=== PATIENT | male | born 1955 | race Caucasian/White ===

== ENCOUNTER 2018-02-21 15:09 | Emergency (ER) | payer OTHER, SELFPAY ==
[2018-02-21 15:24] VITALS: BP 168/83; PULSE 79; RESP 20; TEMP 36.4; O2SAT 96; BMI 35.7
--- NOTE | 2018-02-21 17:28 | ED.BACK ---
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 He has seen his PCP and is on ibuprofen during the day and tramadol at night. He states that he has been doing okay with this regimen until earlier today when he bent over a bin and had sudden sharp pain in the same area. He states pain gets much worse if he is sitting, or if he walks for while. Much better lying prone nor on his back with his knees up. He denies any radiation of the pain. He denies any weakness or paresthesia in the extremities. He denies any new bowel or bladder dysfunction. He states he will occasionally have pain in the left side of his groin since this started, but does not have any now. He does not have numbness in the groin or perineum. He denies any fever, rash, recent illness or other complaints on systems review Related Data Home Medications Medication Instructions Recorded Confirmed aspirin 81 mg PO QDAY #0 10/07/16 Previous Rx's Medication Instructions Recorded fluticasone [Flonase Allergy 1 - 2 spray INTRANASAL QDAY #1 bot 10/07/16 Relief] prednisone 50 mg PO AMCC 3 Days #0 tab 10/07/16 oxycodone-acetaminophen [Percocet] 1 tab PO Q4-6H PRN #10 tab 02/21/18 Allergies Allergy/AdvReac Type Severity Reaction Status Date / Time chloramphenicol Allergy Unknown RASH Unverified 10/04/17 13:06 [CHLORAMPHENICOL] ITCHING shellfish derived Allergy Unknown THROAT Unverified 10/04/17 13:06 [SHELLFISH DERIVED] CLOSES UP Review of Systems <FORTINO Lora Last Filed: 02/21/18 21:47> Review of Systems All systems reviewed & are unremarkable except as noted in HPI and below PFSH <Fatou Guardado PA-C - Last Filed: 02/21/18 21:47> Comment: Occasional ETOH, no street drugs Exam <FORTINO Lora Last Filed: 02/21/18 21:47> Narrative Exam Narrative: GENERAL APPEARANCE: Patient appears comfortable, lying prone PULMONARY: Lungs clear to auscultation bilaterally CV: Regular rhythm regular without murmur, normal S1 and S2, no S3 or S4 MUSCULOSKELETAL: No point tenderness over the lumbar spine. No tenderness over the sacral spine. He points to the left SI joint as pain source but no tenderness there. He has reduced range of motion of the trunk in all chung secondary to tenderness. He is able to move from prone to supine on his own. Lower extremity strength 5/5 bilateral hip flexors, knee extensors, foot plantar flexion. Negative straight leg raise bilaterally. He ambulates with a slightly shortened gait NEUROLOGIC: Bilateral patellar and Achilles DTRs 2+, sensation is grossly intact Initial Vital Signs Initial Vital Signs: Vital Signs Temperature 97.5 F L 02/21/18 15:24 Pulse Rate 79 02/21/18 15:24 Respiratory Rate 20 02/21/18 15:24 Blood Pressure 168/83 H 02/21/18 15:24 Pulse Oximetry 96 02/21/18 15:24 <Duarte Pradhan DO - Last Filed: 02/21/18 23:12> Initial Vital Signs Initial Vital Signs: Vital Signs Temperature 97.5 F L 02/21/18 15:24 Pulse Rate 79 02/21/18 15:24 Respiratory Rate 20 02/21/18 15:24 Blood Pressure 168/83 H 02/21/18 15:24 Pulse Oximetry 96 02/21/18 15:24 Course <FORTINO Lora Last Filed: 02/21/18 21:47> Additional Information: Patient is comfortable lying prone, but overall does not feel like his pain is significantly improved with medications given here. He has taken Percocet in the past for pain without any side effects. He was given a prescription for this to take at home tonight and will remain off work and follow up with his PCP tomorrow. X-ray findings reviewed, and he agrees to return immediately if any acutely worsening symptoms or new symptoms such as extremity paresthesia, weakness, bowel or bladder dysfunction Orders Ordered: ED Orders 02/21/18 17:50 XR lumbar spine 2-3V Stat Discontinued Medications Cyclobenzaprine HCl (Flexeril) 10 mg PO NOW ONE Stop: 02/21/18 17:44 Last Admin: 02/21/18 18:28 Dose: 10 mg Tramadol HCl (Ultram) 100 mg PO NOW ONE Stop: 02/21/18 17:44 Last Admin: 02/21/18 18:28 Dose: 100 mg Vital Signs - 8 hr 02/21/18 15:24 02/21/18 19:45 Temperature 97.5 F L Pulse Rate 79 69 Respiratory Rate 20 20 Blood Pressure 168/83 H 172/70 H Pulse Oximetry 96 98 <Duarte Pradhan DO - Last Filed: 02/21/18 23:12> Orders Ordered: ED Orders 02/21/18 17:50 XR lumbar spine 2-3V Stat Discontinued Medications Cyclobenzaprine HCl (Flexeril) 10 mg PO NOW ONE Stop: 02/21/18 17:44 Last Admin: 02/21/18 18:28 Dose: 10 mg Tramadol HCl (Ultram) 100 mg PO NOW ONE Stop: 02/21/18 17:44 Last Admin: 02/21/18 18:28 Dose: 100 mg Vital Signs - 8 hr 02/21/18 15:24 02/21/18 19:45 Temperature 97.5 F L Pulse Rate 79 69 Respiratory Rate 20 20 Blood Pressure 168/83 H 172/70 H Pulse Oximetry 96 98 MDM - Back Pain/Injury <Fatou Guradado PA-C - Last Filed: 02/21/18 21:47> Imaging Data spine: Radiologist's impression: View Report History [address] [address] XRay Report Signed Patient: Wilfredo Magallanes MR#: [id number] : 1955 Acct:[id number] Age/Sex: 62 / M Date of Service: 02/21/18 Loc: ED Accession Number: [id number] Procedure: XR lumbar spine 2-3V Ordering Provider: Fatou Guardado P.A-C PROCEDURE: XR LUMBAR SPINE 2-3V INDICATIONS: pain, L. LB, SI TECHNIQUE: 3 views of the lumbar spine were acquired. COMPARISON: [facility], MR, L-SPINE WITHOUT CONTRAST, 02/09/2017, 8:36. FINDINGS: Bones: 5 yon-rca-tqthqag vertebrae are present. There is minimal retrolisthesis at L5-S1 redemonstrated. There is zcae-qk-rxqchiar disc space narrowing posteriorly at L5-S1 with mild narrowing posteriorly also noted at L3-L4 and L4-5. There is mild facet arthropathy at L5-S1. No vertebral body compression fractures. No suspicious bony lesions. Soft tissues: Overlying bowel gas pattern is normal. No suspicious soft tissue calcifications. IMPRESSION: 1. 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 2. Minimal retrolisthesis at L5-S1. Discharge Plan Departure Patient Disposition: Home Clinical Impression: Sacro-iliac pain, Low back strain Discharge Date/Time: 02/21/18 19:45 Interventions: ED Discharge Assessment Last Done: 02/21/18 19:45 Instructions: DI for Low Back Pain, DI Sacroiliac Joint Dysfunction Activity Restrictions/Additional Instructions: Please remain off work tomorrow and follow up with your primary care provider as planned to determine whether you need further testing or referral. I have given you a prescription for Percocet since you have taken that in the past and it has been helpful. Please use this tonight and tomorrow if needed instead of your tramadol. Do not take it and drive a as it may make you sleepy. Also please try [id number] 4% lidocaine patches to see if these are helpful for you. You should return if we have any acutely worsening symptoms as we talked about, or new symptoms such as leg weakness, groin numbness, bowel or bladder troubles. You should also talk with your PCP about the groin pain that you have had off and on even though you aren't having this today Prescriptions: New oxycodone-acetaminophen [Percocet] 5-325 mg tablet 1 tab PO Q4-6H PRN (Reason: pain) Qty: 10 RF: 0 No Action aspirin 81 MG tablet,delayed release (DR/EC) 81 mg PO QDAY Qty: 0 RF: 0 fluticasone [Flonase Allergy Relief] 9.9 ML spray,suspension 1 - 2 spray Intranasal QDAY Qty: 1 RF: 0 prednisone 50 MG tablet 50 mg PO AMCC 3 Days Qty: 0 RF: 0 Referrals: Maddie Kaufman MD [Non-Staff] - <Duarte [place], DO - Last Filed: 02/21/18 23:12> Cosign ED Attending Harjinderature Attestation: I was immediately available in the department for consultation. Documentation has been reviewed. I agree with assessment and plan.
--- NOTE | 2018-02-21 17:50 | ED_ITS ---
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 He has seen his PCP and is on ibuprofen during the day and tramadol at night. He states that he has been doing okay with this regimen until earlier today when he bent over a bin and had sudden sharp pain in the same area. He states pain gets much worse if he is sitting, or if he walks for while. Much better lying prone nor on his back with his knees up. He denies any radiation of the pain. He denies any weakness or paresthesia in the extremities. He denies any new bowel or bladder dysfunction. He states he will occasionally have pain in the left side of his groin since this started, but does not have any now. He does not have numbness in the groin or perineum. He denies any fever, rash, recent illness or other complaints on systems review Related Data Home Medications Medication Instructions Recorded Confirmed aspirin 81 mg PO QDAY #0 10/07/16 Previous Rx's Medication Instructions Recorded fluticasone [Flonase Allergy 1 - 2 spray INTRANASAL QDAY #1 bot 10/07/16 Relief] prednisone 50 mg PO AMCC 3 Days #0 tab 10/07/16 oxycodone-acetaminophen [Percocet] 1 tab PO Q4-6H PRN #10 tab 02/21/18 Allergies Allergy/AdvReac Type Severity Reaction Status Date / Time chloramphenicol Allergy Unknown RASH Unverified 10/04/17 13:06 [CHLORAMPHENICOL] ITCHING shellfish derived Allergy Unknown THROAT Unverified 10/04/17 13:06 [SHELLFISH DERIVED] CLOSES UP Review of Systems <FORTINO Lora Last Filed: 02/21/18 21:47> Review of Systems All systems reviewed & are unremarkable except as noted in HPI and below PFSH <Fatou Guardado PA-C - Last Filed: 02/21/18 21:47> Comment: Occasional ETOH, no street drugs Exam <FORTINO Lora Last Filed: 02/21/18 21:47> Narrative Exam Narrative: GENERAL APPEARANCE: Patient appears comfortable, lying prone PULMONARY: Lungs clear to auscultation bilaterally CV: Regular rhythm regular without murmur, normal S1 and S2, no S3 or S4 MUSCULOSKELETAL: No point tenderness over the lumbar spine. No tenderness over the sacral spine. He points to the left SI joint as pain source but no tenderness there. He has reduced range of motion of the trunk in all chung secondary to tenderness. He is able to move from prone to supine on his own. Lower extremity strength 5/5 bilateral hip flexors, knee extensors, foot plantar flexion. Negative straight leg raise bilaterally. He ambulates with a slightly shortened gait NEUROLOGIC: Bilateral patellar and Achilles DTRs 2+, sensation is grossly intact Initial Vital Signs Initial Vital Signs: Vital Signs Temperature 97.5 F L 02/21/18 15:24 Pulse Rate 79 02/21/18 15:24 Respiratory Rate 20 02/21/18 15:24 Blood Pressure 168/83 H 02/21/18 15:24 Pulse Oximetry 96 02/21/18 15:24 <Duarte Pradhan DO - Last Filed: 02/21/18 23:12> Initial Vital Signs Initial Vital Signs: Vital Signs Temperature 97.5 F L 02/21/18 15:24 Pulse Rate 79 02/21/18 15:24 Respiratory Rate 20 02/21/18 15:24 Blood Pressure 168/83 H 02/21/18 15:24 Pulse Oximetry 96 02/21/18 15:24 Course <FORTINO Lora Last Filed: 02/21/18 21:47> Additional Information: Patient is comfortable lying prone, but overall does not feel like his pain is significantly improved with medications given here. He has taken Percocet in the past for pain without any side effects. He was given a prescription for this to take at home tonight and will remain off work and follow up with his PCP tomorrow. X-ray findings reviewed, and he agrees to return immediately if any acutely worsening symptoms or new symptoms such as extremity paresthesia, weakness, bowel or bladder dysfunction Orders Ordered: ED Orders 02/21/18 17:50 XR lumbar spine 2-3V Stat Discontinued Medications Cyclobenzaprine HCl (Flexeril) 10 mg PO NOW ONE Stop: 02/21/18 17:44 Last Admin: 02/21/18 18:28 Dose: 10 mg Tramadol HCl (Ultram) 100 mg PO NOW ONE Stop: 02/21/18 17:44 Last Admin: 02/21/18 18:28 Dose: 100 mg Vital Signs - 8 hr 02/21/18 15:24 02/21/18 19:45 Temperature 97.5 F L Pulse Rate 79 69 Respiratory Rate 20 20 Blood Pressure 168/83 H 172/70 H Pulse Oximetry 96 98 <Duarte Pradhan DO - Last Filed: 02/21/18 23:12> Orders Ordered: ED Orders 02/21/18 17:50 XR lumbar spine 2-3V Stat Discontinued Medications Cyclobenzaprine HCl (Flexeril) 10 mg PO NOW ONE Stop: 02/21/18 17:44 Last Admin: 02/21/18 18:28 Dose: 10 mg Tramadol HCl (Ultram) 100 mg PO NOW ONE Stop: 02/21/18 17:44 Last Admin: 02/21/18 18:28 Dose: 100 mg Vital Signs - 8 hr 02/21/18 15:24 02/21/18 19:45 Temperature 97.5 F L Pulse Rate 79 69 Respiratory Rate 20 20 Blood Pressure 168/83 H 172/70 H Pulse Oximetry 96 98 MDM - Back Pain/Injury <Fatou Guardado PA-C - Last Filed: 02/21/18 21:47> Imaging Data spine: Radiologist's impression: View Report History [address] [address] XRay Report Signed Patient: Wilfredo Magallanes MR#: [id number] : 1955 Acct:[id number] Age/Sex: 62 / M Date of Service: 02/21/18 Loc: ED Accession Number: [id number] Procedure: XR lumbar spine 2-3V Ordering Provider: Fatou Guardado P.A-C PROCEDURE: XR LUMBAR SPINE 2-3V INDICATIONS: pain, L. LB, SI TECHNIQUE: 3 views of the lumbar spine were acquired. COMPARISON: [facility], MR, L-SPINE WITHOUT CONTRAST, 02/09/2017, 8:36. FINDINGS: Bones: 5 wcr-odd-kcosluq vertebrae are present. There is minimal retrolisthesis at L5-S1 redemonstrated. There is erzs-ya-ndbizoro disc space narrowing posteriorly at L5-S1 with mild narrowing posteriorly also noted at L3-L4 and L4-5. There is mild facet arthropathy at L5-S1. No vertebral body compression fractures. No suspicious bony lesions. Soft tissues: Overlying bowel gas pattern is normal. No suspicious soft tissue calcifications. IMPRESSION: 1. 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 2. Minimal retrolisthesis at L5-S1. Discharge Plan Departure Patient Disposition: Home Clinical Impression: Sacro-iliac pain, Low back strain Discharge Date/Time: 02/21/18 19:45 Interventions: ED Discharge Assessment Last Done: 02/21/18 19:45 Instructions: DI for Low Back Pain, DI Sacroiliac Joint Dysfunction Activity Restrictions/Additional Instructions: Please remain off work tomorrow and follow up with your primary care provider as planned to determine whether you need further testing or referral. I have given you a prescription for Percocet since you have taken that in the past and it has been helpful. Please use this tonight and tomorrow if needed instead of your tramadol. Do not take it and drive a as it may make you sleepy. Also please try [id number] 4% lidocaine patches to see if these are helpful for you. You should return if we have any acutely worsening symptoms as we talked about, or new symptoms such as leg weakness, groin numbness, bowel or bladder troubles. You should also talk with your PCP about the groin pain that you have had off and on even though you aren't having this today Prescriptions: New oxycodone-acetaminophen [Percocet] 5-325 mg tablet 1 tab PO Q4-6H PRN (Reason: pain) Qty: 10 RF: 0 No Action aspirin 81 MG tablet,delayed release (DR/EC) 81 mg PO QDAY Qty: 0 RF: 0 fluticasone [Flonase Allergy Relief] 9.9 ML spray,suspension 1 - 2 spray Intranasal QDAY Qty: 1 RF: 0 prednisone 50 MG tablet 50 mg PO AMCC 3 Days Qty: 0 RF: 0 Referrals: Maddie Kaufman MD [Non-Staff] - <Duarte [place], DO - Last Filed: 02/21/18 23:12> Cosign ED Attending Harjinderature Attestation: I was immediately available in the department for consultation. Documentation has been reviewed. I agree with assessment and plan.
--- NOTE | 2018-02-21 17:50 | DI.RAD.S_ITS ---
PROCEDURE: XR LUMBAR SPINE 2-3V INDICATIONS: pain, L. LB, SI TECHNIQUE: 3 views of the lumbar spine were acquired. COMPARISON: [facility], , L-SPINE WITHOUT CONTRAST, 02/09/2017, 8:36. FINDINGS: Bones: 5 xqt-elg-yyqtwps vertebrae are present. There is minimal retrolisthesis at L5-S1 redemonstrated. There is hgje-rv-nypwgzog disc space narrowing posteriorly at L5-S1 with mild narrowing posteriorly also noted at L3-L4 and L4-5. There is mild facet arthropathy at L5-S1. No vertebral body compression fractures. No suspicious bony lesions. Soft tissues: Overlying bowel gas pattern is normal. No suspicious soft tissue calcifications. IMPRESSION: 1. 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 2. Minimal retrolisthesis at L5-S1. Dictated by: Maikol Calvo M.D. on 02/21/2018 at 18:53 Approved by: Maikol Calvo M.D. on 02/21/2018 at 18:55
[2018-02-21] MEDS: CYCLOBENZAPRINE 10 MG TABLET PO (18:28)
[2018-02-21] MEDS: TRAMADOL 50 MG TABLET 100 MG PO (18:28)
[2018-02-21 19:45] VITALS: BP 172/70; PULSE 69; RESP 20; O2SAT 98
== END 2018-02-21 19:45 | disposition home or self-care (01) ==
PROVIDERS: Emergency Provider Internal Medicine
DX: S39.012A Strain of muscle, fascia and tendon of lower back, initial encounter (principal); M53.3 Sacrococcygeal disorders, not elsewhere classified; X50.9XXA Other and unspecified overexertion or strenuous movements or postures, initial encounter
CPT/HCPCS: 72100; 99282; 99283

== ENCOUNTER 2020-03-09 23:27 | Emergency (ER) | payer OTHER, SELFPAY ==
[2020-03-09 23:35] VITALS: BP 157/74; PULSE 63; RESP 18; TEMP 37; O2SAT 96
--- NOTE | 2020-03-09 23:39 | ED.BACK ---
HPI - Back Pain/Injury General Chief Complaint: Back Pain/Injury Stated Complaint: severe lower back pain Time Seen by Provider: 03/09/20 23:30 Source: patient Mode of arrival: Ambulatory Limitations: no limitations History of Present Illness HPI Narrative: 64-year-old male here for evaluation of lower midline back pain. He states that yesterday he was bending over to put some air in his tire on the vehicle when he suddenly got lower back pain. No urinary symptoms. No bowel symptoms. Took some nwos-wph-idhqsaw anti-inflammatories minimal of any improving. He states he had similar symptoms many years ago. No radiation down into his legs. No fevers. He did not fall. Related Data Home Medications Medication Instructions Recorded Confirmed aspirin 81 mg PO QDAY #0 10/07/16 Previous Rx's Medication Instructions Recorded fluticasone propionate [Flonase 1 - 2 spray INTRANASAL QDAY #1 bot 10/07/16 Allergy Relief] prednisone 50 mg PO AMCC 3 Days #0 tab 10/07/16 oxycodone-acetaminophen [Percocet] 1 tab PO Q4-6H PRN #10 tab 02/21/18 Allergies Allergy/AdvReac Type Severity Reaction Status Date / Time chloramphenicol Allergy Unknown RASH Unverified 10/04/17 13:06 [CHLORAMPHENICOL] ITCHING shellfish derived Allergy Unknown THROAT Unverified 10/04/17 13:06 [SHELLFISH DERIVED] CLOSES UP Review of Systems Constitutional Constitutional: Denies fever(s) Cardiovascular Cardiovascular: Denies chest pain and Denies dyspnea Respiratory Respiratory: Denies dyspnea Gastrointestinal Gastrointestinal: Denies abdominal pain, Denies nausea and Denies vomiting Genitourinary Genitourinary: Denies dysuria, Denies urinary hesitancy, Denies urinary incontinence and Denies urinary urgency Genitourinary: Denies dysuria, Denies urinary incontinence, Denies urinary hesitancy and Denies urinary urgency Musculoskeletal Musculoskeletal: Denies arthralgias, Reports back pain, Denies myalgias, Denies numbness and Denies radiating pain into limb Integumentary/Breasts Skin/Breast: Denies lesions and Denies rash Neurologic Neurologic: Denies behavioral changes and Denies numbness Psychiatric Psychiatric: Denies behavioral changes Hematologic/Lymphatic Hematologic/Lymphatic: Denies easy bleeding and Denies easy bruising Allergic/Immunologic Allergic/Immunologic: Denies urticaria Patient History Medical History HTN (hypertension) (Chronic) Surgical History (Updated 02/21/18 @ 17:49 by Fatou Guardado PA-C) History of elbow surgery (Resolved) Status post appendectomy (Resolved) Social History Smoking Status: Current every day smoker Smoking Status: Current every day smoker alcohol intake frequency: 0-2 drinks per day Substance Use Type: does not use Exam Initial Vital Signs Initial Vital Signs: Vital Signs Temperature 98.6 F 03/09/20 23:35 Pulse Rate 63 03/09/20 23:35 Respiratory Rate 18 03/09/20 23:35 Blood Pressure 157/74 H 03/09/20 23:35 Pulse Oximetry 96 03/09/20 23:35 Const General: cooperative and comfortable Limitations: mental status not altered HENMT Head: normal to inspection and normocephalic Resp Effort & Inspection: normal respiratory effort Cardio Rate: regular rate Back/Spine/Pelvis Thoracic/Lumbar Spine: paraspinal tenderness, No thoracic spinal tenderness and lumbar spinal tenderness Skin Lesions: no lesions Rashes: no rashes Neuro General: patient alert and patient awake Sensory Exam: no sensory deficits noted Extrem General: normal to inspection and capillary refill normal Psych Appearance: grossly normal and well kempt Course Orders Ordered: Discontinued Medications Hydrocodone Bitart/Acetaminophen ([place] 5/325) 1 tab PO NOW ONE Stop: 03/09/20 23:41 Last Admin: 03/09/20 23:48 Dose: 1 tab Documented by: FANY Hydrocodone Bitart/Acetaminophen (Vicodin 5/325 Prepack) 1 bottle MISC SEEINSTR ONE Stop: 03/09/20 23:41 Last Admin: 03/09/20 23:49 Dose: 1 bottle Documented by: FANY Cyclobenzaprine HCl (Flexeril 10 Mg Prepack) 1 bottle MISC SEEINSTR ONE Stop: 03/09/20 23:41 Last Admin: 03/09/20 23:49 Dose: 1 bottle Documented by: FANY Ketorolac Tromethamine (Toradol) 30 mg IM NOW ONE Stop: 03/09/20 23:41 Last Admin: 03/09/20 23:49 Dose: 30 mg Documented by: FANY Vital Signs Vital signs: Vital Signs - 8 hr 03/09/20 23:35 Temperature 98.6 F Pulse Rate 63 Respiratory Rate 18 Blood Pressure 157/74 H Pulse Oximetry 96 MDM - Back Pain/Injury MDM Narrative Medical decision making narrative: No fevers. No urinary symptoms. No radiculopathy. No trauma. Suspect muscular etiology. Feel we can hold on radiologic studies for now. Start the process of symptom treatment here in the emergency department. Will send home with short prescriptions for medications. We did discuss the use of heat and ice and massage chin staying active. He is going to contact his primary provider for follow-up. We did discuss strict return precautions. He expressed understanding and agreement. Discharge Plan Departure Patient Disposition: Home Clinical Impression: Lower back pain Qualifiers: Chronicity: acute Back pain laterality: midline Sciatica presence: without sciatica Qualified Code(s): M54.5 - Low back pain Discharge Date/Time: 03/09/20 23:59 Instructions: DI for Low Back Pain Activity Restrictions/Additional Instructions: Recommend that you start taking an anti-inflammatories such as Motrin or Naprosyn or Aleve on a daily basis for the next 7-10 days as directed on the bottle. You can purchase hqfs-ghs-qjsyocv. Recommend that you do take it with some food has a can cause some stomach upset. You can do light stretching and heat/ice/massage. Contact your primary provider for follow-up. Return to the emergency department for any new or worsening symptoms Prescriptions: No Action aspirin 81 MG tablet,delayed release (DR/EC) 81 mg PO QDAY Qty: 0 RF: 0 fluticasone propionate [Flonase Allergy Relief] 9.9 ML spray,suspension 1 - 2 spray Intranasal QDAY Qty: 1 RF: 0 prednisone 50 MG tablet 50 mg PO AMCC 3 Days Qty: 0 RF: 0 oxycodone-acetaminophen [Percocet] 5-325 mg tablet 1 tab PO Q4-6H PRN (Reason: pain) Qty: 10 RF: 0 Stand Alone Forms: Work Release Note
[2020-03-09] MEDS: HYDROCODONE/ACET 5/325 TABLET 1 TAB PO (23:48)
[2020-03-09] MEDS: HYDROCODONE/ACET 5/325 PREPACK 1 BOTTLE MISC (23:49)
[2020-03-09] MEDS: KETOROLAC 60 MG/2 ML VIAL 30 MG IM (23:49)
[2020-03-09] MEDS: CYCLOBENZAPRINE 10 MG PREPACK 1 BOTTLE MISC (23:49)
== END 2020-03-09 23:59 | disposition home or self-care (01) ==
PROVIDERS: Emergency Provider Emergency Medicine
DX: M54.5 Low back pain (principal)
CPT/HCPCS: 96372; 99283; J1885

== ENCOUNTER 2020-06-07 18:52 | Emergency (ER) | payer MEDICARE, OTHER, SELFPAY ==
[2020-06-07 18:58] VITALS: BP 173/72; PULSE 82; RESP 22; TEMP 36.6; O2SAT 96
--- NOTE | 2020-06-07 19:31 | ED_ITS ---
HPI - Extremity Problem General Chief complaint: Extremity Problem,Nontraumatic Stated complaint: states severe gout right ankle Time Seen by Provider: 06/07/20 18:57 Source: patient Mode of arrival: Wheelchair Limitations: no limitations History of Present Illness HPI Narrative: Patient is 64-year-old male with history of hypertension and gout presenting with right medial malleoli pain which started yesterday morning at 3:00 a.m.. He said he was feeling fine the day before he had beef stew and then he started feeling an ache. 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 He is unable to bear weight he has been ambulating with a cane. He denies any fever or chills there was no injury. He previously had 1 gouty attack 5 years ago and nothing since. He denies any fever or chills. MD Complaint: extremity pain and extremity swelling Onset (ago): day(s) (1) Quality: aching Associated symptoms: denies other symptoms Related Data Home Medications Medication Instructions Recorded Confirmed aspirin 81 mg PO QDAY #0 10/07/16 Previous Rx's Medication Instructions Recorded fluticasone propionate [Flonase 1 - 2 spray INTRANASAL QDAY #1 bot 10/07/16 Allergy Relief] prednisone 50 mg PO AMCC 3 Days #0 tab 10/07/16 oxycodone-acetaminophen [Percocet] 1 tab PO Q4-6H PRN #10 tab 02/21/18 prednisone 40 mg PO DAILY #10 tab 06/07/20 Allergies Allergy/AdvReac Type Severity Reaction Status Date / Time chloramphenicol Allergy Unknown RASH Unverified 10/04/17 13:06 [CHLORAMPHENICOL] ITCHING shellfish derived Allergy Unknown THROAT Unverified 10/04/17 13:06 [SHELLFISH DERIVED] CLOSES UP Review of Systems Review of Systems Narrative: GENERAL: Denies chills,fever HEENT: Denies throat pain RESPIRATORY: Denies dyspnea, cough, wheezing CARDIOVASCULAR: Denies chest pain, palpitations GASTROINTESTINAL: Denies nausea, vomiting MUSCULOSKELETAL: See HPI SKIN: No rash, no laceration, no pruritus NEUROLOGIC: Denies weakness, dizziness, headache, numbness 8 point review of systems is negative except for those stated above and HPI Patient History Medical History (Updated 06/07/20 @ 19:36 by Ashleigh Perez DO) Gout HTN (hypertension) Surgical History History of elbow surgery Status post appendectomy Social History Smoking Status: Current every day smoker Smoking Status: Current every day smoker alcohol intake frequency: 0-2 drinks per day Substance Use Type: does not use Exam Initial Vital Signs Initial Vital Signs: Vital Signs Temperature 97.9 F 06/07/20 18:58 Pulse Rate 82 06/07/20 18:58 Respiratory Rate 22 06/07/20 18:58 Blood Pressure 173/72 H 06/07/20 18:58 Pulse Oximetry 96 06/07/20 18:58 GENERAL: Well-appearing, well-nourished and in no acute distress. CARDIOVASCULAR: peripheral pulses in tact, cap refill <2 sec RESPIRATORY: No respiratory distress, speaks in full sentences without difficulty EXTREMITIES: Normal range of motion, no clubbing or edema. Neurovascularly int act,. Passive range of motion of right ankle is intact neurovascularly intact. NEUROLOGICAL: Cranial nerves II through XII grossly intact. Normal gait and speech. SKIN: No minimal erythema noted right medial malleoli mild swelling Course Orders Ordered: Discontinued Medications Ketorolac Tromethamine (Ketorolac 60 Mg/2 Ml Vial) 30 mg IM NOW ONE Stop: 06/07/20 19:32 Last Admin: 06/07/20 19:40 Dose: 30 mg Documented by: MMINOR Vital Signs Vital signs: Vital Signs - 8 hr 06/07/20 18:58 Temperature 97.9 F Pulse Rate 82 Respiratory Rate 22 Blood Pressure 173/72 H Pulse Oximetry 96 MDM - Extremity (Nontraumatic) [facility] Narrative Medical decision making narrative: Patient has had 1 episode of gout previously he says this feels the same. He has minimal erythema minimal swelling no injury. At this time I see no indication for imaging. He is given a shot of T oradol and prescribed a course of prednisone. It is unclear what his kidney function is like with his known hypertension. At this time will treat with short course of prednisone. He has been taking ibuprofen 400 mg Discharge Plan Departure Patient Disposition: Home Clinical Impression: Gout Qualifiers: Gout site: ankle Gout etiology: unspecified cause Chronicity: acute Laterality: right Qualified Code(s): M10.9 - Gout, unspecified Instructions: DI for Gout Activity Restrictions/Additional Instructions: *You have been diagnosed with a gout flare right ankle *What to do: Increase activity as tolerated use cane as needed *Continue to take medications as directed Prednisone 40 mg once a day for 5 days *Follow up with your primary care provider in 2-3 days *Return to ER if you should have increasing pain swelling redness fever inability to walk or any new, worsening or concerning symptoms Prescriptions: New prednisone 20 mg tablet 40 mg PO DAILY Qty: 10 RF: 0 No Action aspirin 81 MG tablet,delayed release (DR/EC) 81 mg PO QDAY Qty: 0 RF: 0 fluticasone propionate [Flonase Allergy Relief] 9.9 ML spray,suspension 1 - 2 spray Intranasal QDAY Qty: 1 RF: 0 prednisone 50 MG tablet 50 mg PO AMCC 3 Days Qty: 0 RF: 0 oxycodone-acetaminophen [Percocet] 5-325 mg tablet 1 tab PO Q4-6H PRN (Reason: pain) Qty: 10 RF: 0 Stand Alone Forms: Work Release Note
[2020-06-07] MEDS: KETOROLAC 60 MG/2 ML VIAL 30 MG IM (19:40)
== END 2020-06-07 19:57 | disposition home or self-care (01) ==
PROVIDERS: Emergency Provider Emergency Medicine
DX: M10.9 Gout, unspecified (principal); I10 Essential (primary) hypertension
CPT/HCPCS: 96372; 99281; 99283; J1885

== ENCOUNTER 2021-08-20 09:47 | Emergency (ER) | payer MEDICARE, OTHER, SELFPAY ==
[2021-08-20 10:22] VITALS: BP 136/63; PULSE 63; RESP 18; TEMP 36.3; O2SAT 96; BMI 35.6
--- NOTE | 2021-08-20 12:29 | DI.RAD.S_ITS ---
PROCEDURE: XR FOOT LT MIN 3V INDICATIONS: Great toe pain TECHNIQUE: 3 views of the foot were acquired. COMPARISON: None. FINDINGS: Bones: No fractures or dislocations. No suspicious bony lesions. Posterior and plantar calcaneal spurs noted. Soft tissues: No tibiotalar joint effusion. Achilles tendon appears normal. IMPRESSION: Calcaneal spurs. Otherwise unremarkable left foot radiographs Approved by: Perez Dwyer M.D. on 08/20/2021 at 12:28
--- NOTE | 2021-08-20 12:33 | ED.EXTPRO ---
HPI - Extremity Problem General Chief complaint: Extremity Problem,Nontraumatic Stated complaint: something wrong with left foot/poss gout Time Seen by Provider: 08/20/21 09:49 Source: patient Mode of arrival: Family Vehicle History of Present Illness HPI Narrative: Patient has history of gout. Seen here 2 days ago for right ankle gout. Improved with prednisone. Patient states pain started in the left great toe about 2 days ago. He does not drink very much alcohol but does eat red meat. Patient has not follow-up with anybody since his episode 2 years ago. No known injury. Related Data Home Medications Medication Instructions Recorded Confirmed aspirin 81 mg tablet,delayed 81 mg PO QDAY #0 10/07/16 release Previous Rx's Medication Instructions Recorded fluticasone propionate 50 1 - 2 spray INTRANASAL QDAY #1 bot 10/07/16 mcg/actuation nasal spray,suspension (Flonase Allergy Relief) prednisone 50 mg tablet 50 mg PO AMCC 3 Days #0 tab 10/07/16 oxycodone-acetaminophen 5 mg-325 1 tab PO Q4-6H PRN #10 tab 02/21/18 mg tablet (Percocet) prednisone 20 mg tablet 40 mg PO DAILY #10 tab 06/07/20 colchicine 0.6 mg capsule 0.6 mg PO DAILY #3 cap 08/20/21 methylprednisolone 4 mg tablets in See Rx Instructions PO .COMPLEX 08/20/21 a dose pack (Medrol (Tad)) #21 ea Allergies Allergy/AdvReac Type Severity Reaction Status Date / Time chloramphenicol Allergy Unknown RASH Verified 08/20/21 10:27 [CHLORAMPHENICOL] ITCHING shellfish derived Allergy Unknown THROAT Verified 08/20/21 10:27 [SHELLFISH DERIVED] CLOSES UP Review of Systems Review of Systems Narrative: GENERAL: Denies chills, fatigue, malaise, fever, sweats. HEENT: Denies sinus pain, ear pain, sore throat RESPIRATORY: Denies dyspnea, cough CARDIOVASCULAR: Denies chest pain, palpitations GASTROINTESTINAL: Denies nausea, vomiting, abdominal pain : Denies dysuria, frequency, hematuria MUSCULOSKELETAL: Positive for muscle or bony pain SKIN: Denies rash, skin lesions NEUROLOGIC: Denies weakness, numbness ROS Unobtainable: All systems reviewed & are unremarkable except as noted in HPI and below Patient History Medical History Gout HTN (hypertension) Surgical History History of elbow surgery Status post appendectomy Social History Smoking Status: Current every day smoker Smoking Status: Current every day smoker tobacco type: cigarettes alcohol intake frequency: holidays/special occasions only Substance Use Type: does not use Exam Narrative Exam Narrative: GENERAL: in no distress, not toxic not dyspneic HEAD: Normocephalic. EXTREMITIES: No gross deformities. Left foot and ankle exposed. Nontender ankle. There is tenderness overlying the 1st MTP joint. No erythema no red streaking. Light touch intact to toe and foot. No necrotic tissue. No lesions. No rash. Strong pedal pulse. Foot is warm soft and pink NEURO: AOx4. SKIN: Warm and dry PSYCH: Not anxious, is cooperative Initial Vital Signs Initial Vital Signs: Vital Signs Temperature 97.4 F L 08/20/21 10:22 Pulse Rate 63 08/20/21 10:22 Respiratory Rate 18 08/20/21 10:22 Blood Pressure 136/63 08/20/21 10:22 Pulse Oximetry 96 08/20/21 10:22 Course Course Course Narrative: No new issues during course of stay Orders Ordered: ED Orders 08/20/21 12:29 XR foot LT min 3V Stat Discontinued Medications Indomethacin (Indomethacin 25 Mg Capsule) 50 mg PO Q8HR QUOC Prednisone (Prednisone 20 Mg Tablet) 40 mg PO NOW ONE Stop: 08/20/21 12:33 Last Admin: 08/20/21 12:39 Dose: 40 mg Documented by: SETH Reevaluation(s) Reevaluation #1: Patient agrees with treatment plan and medication prescriptions. Outpatient follow-up referrals given. Not toxic at discharge. Time: 13:33 Vital Signs Vital signs: Vital Signs - 8 hr 08/20/21 10:22 Temperature 97.4 F L Pulse Rate 63 Respiratory Rate 18 Blood Pressure 136/63 Pulse Oximetry 96 MDM - Extremity (Nontraumatic) Differential Diagnosis Differential diagnosis: Likely gout and cellulitis Imaging Data Extremity x-ray #1: Radiologist's Impression: [address] [address] XRay Report Signed Patient: Wilfredo Magallanes MR#: [id number] : 1955 Acct:[id number] Age/Sex: 66 / M Date of Service: 08/20/21 Loc: ED Accession Number: [id number] ?? Procedure: XR foot LT min 3V Ordering Provider: Po Arreola MD PROCEDURE:? XR FOOT LT MIN 3V ? INDICATIONS:? Great toe pain ? TECHNIQUE:? 3 views of the foot were acquired.? ? COMPARISON:? None. ? FINDINGS:? ? Bones:? No fractures or dislocations.? No suspicious bony lesions.? Posterior and plantar calcaneal spurs noted. ? Soft tissues:? No tibiotalar joint effusion.? Achilles tendon appears normal.? ? ? IMPRESSION:? Calcaneal spurs.? Otherwise unremarkable left foot radiographs ? ? ? Approved by: Perez Dwyer M.D. on 08/20/2021 at 12:28? MDM Narrative Medical decision making narrative: Appropriate for discharge home. No blood work indicated. Clinically is gout. Return precautions reviewed with patient. Podiatry Services and General primary care referral given to patient. Discharge Plan Departure Patient Disposition: Home Clinical Impression: Gout Instructions: Gout Activity Restrictions/Additional Instructions: No red meat products in your diet or alcohol. Call provided Podiatry office on Monday for office recheck of your toe pain. Please call referral line to obtain family doctor as well. Prescriptions have been sent to your pharmacy to continue for your foot pain. Return if worse if any questions or concerns. Call provided primary care referral phone number to establish family doctor. Call [phone] continue steroid pack tomorrow. Prescriptions: New colchicine 0.6 mg capsule 0.6 mg PO DAILY Qty: 3 0RF methylprednisolone [Medrol (Tad)] 4 mg tablets,dose pack See Rx Instructions PO .COMPLEX Qty: 21 0RF Rx Instructions: orally per package directions No Action aspirin 81 MG tablet,delayed release (DR/EC) 81 mg PO QDAY Qty: 0 0RF fluticasone propionate [Flonase Allergy Relief] 9.9 ML spray,suspension 1 - 2 spray Intranasal QDAY Qty: 1 0RF prednisone 50 MG tablet 50 mg PO AMCC 3 Days Qty: 0 0RF oxycodone-acetaminophen [Percocet] 5-325 mg tablet 1 tab PO Q4-6H PRN (Reason: pain) Qty: 10 0RF Rx Instructions: Take 1-2 tabs every 4-6 hours prn back pain. Stop Tramadol. Do not drive prednisone 20 mg tablet 40 mg PO DAILY Qty: 10 0RF Referrals: Sumi Tracy DPM [Physician] -
[2021-08-20] MEDS: predniSONE 20 MG TABLET 40 MG PO (12:39)
== END 2021-08-20 13:36 | disposition home or self-care (01) ==
PROVIDERS: Emergency Provider Emergency Medicine
DX: M10.072 Idiopathic gout, left ankle and foot (principal)
CPT/HCPCS: 73630; 99283

== ENCOUNTER 2021-10-02 18:47 | Emergency (ER) | payer OTHER, SELFPAY ==
[2021-10-02 19:11] VITALS: BP 188/84; PULSE 63; RESP 20; TEMP 36.8; O2SAT 92; BMI 35.4
--- NOTE | 2021-10-02 19:32 | ED.BACK ---
HPI - Back Pain/Injury <Micah Zaragoza PA-C - Last Filed: 10/02/21 20:30> General Chief Complaint: Back Pain/Injury Stated Complaint: pain in lower back; heard a pop and pain shot down Time Seen by Provider: 10/02/21 19:15 Source: patient History of Present Illness HPI Narrative: Patient is a 66-year-old male presenting to the emergency department today for an evaluation low back pain. 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 He explains this has happened to him once before in the past, noting that he was ?out for about 30 days? due to the pain. He states that he is no longer experiencing pain radiating down his right lower extremity but does report pain in his mid low back. Of note, patient states he did not fall or experience any trauma to his back prior to the onset of his pain. No fever, chills, chest pain, cough, shortness of breath, nausea, vomiting, diarrhea, abdominal pain, dysuria, hematuria, constipation, numbness and tingling in the lower extremities, saddle anesthesia, urinary incontinence, fecal incontinence, or any other concerning symptoms reported. No further concerns were voiced at this time. Related Data Home Medications Medication Instructions Recorded Confirmed aspirin 81 mg tablet,delayed 81 mg PO QDAY #0 10/07/16 release Previous Rx's Medication Instructions Recorded fluticasone propionate 50 1 - 2 spray INTRANASAL QDAY #1 bot 10/07/16 mcg/actuation nasal spray,suspension (Flonase Allergy Relief) prednisone 50 mg tablet 50 mg PO AM[facility] 3 Days #0 tab 10/07/16 oxycodone-acetaminophen 5 mg-325 1 tab PO Q4-6H PRN #10 tab 02/21/18 mg tablet (Percocet) prednisone 20 mg tablet 40 mg PO DAILY #10 tab 06/07/20 colchicine 0.6 mg capsule 0.6 mg PO DAILY #3 cap 08/20/21 methylprednisolone 4 mg tablets in See Rx Instructions PO .COMPLEX 08/20/21 a dose pack (Medrol (Tad)) #21 ea baclofen 20 mg tablet 20 mg PO TID #20 tab 10/02/21 oxycodone 5 mg tablet 5 mg PO BID PRN #15 tab 10/02/21 Allergies Allergy/AdvReac Type Severity Reaction Status Date / Time chloramphenicol Allergy Unknown RASH Verified 10/02/21 19:11 [CHLORAMPHENICOL] ITCHING shellfish derived Allergy Unknown THROAT Verified 10/02/21 19:11 [SHELLFISH DERIVED] CLOSES UP Review of Systems <Micah Zaragoza PA-C - Last Filed: 10/02/21 20:30> Constitutional Constitutional: Denies chills, Denies fatigue, Denies fever(s), Denies frequent falls, Denies lethargy and Denies weakness Eyes Eyes: Denies loss of vision ENT Ears, Nose, Mouth, and Throat: Denies dizziness and Denies neck pain Cardiovascular Cardiovascular: Denies chest pain, Denies irregular heart rhythm, Denies lightheadedness, Denies palpitations, Denies dyspnea, Denies dyspnea on exertion and Denies orthopnea Respiratory Respiratory: Denies cough, Denies dyspnea, Denies dyspnea on exertion and Denies wheezing Gastrointestinal Gastrointestinal: Denies abdominal pain, Denies change in bowel habits, Denies diarrhea, Denies nausea and Denies vomiting Genitourinary Genitourinary: Denies hematuria, Denies flank pain, Denies urinary incontinence and Denies urinary urgency Musculoskeletal Musculoskeletal: Reports back pain, Denies muscle weakness, Denies neck pain, Denies numbness, Denies tingling and Reports other (Shooting pain down right leg) Integumentary/Breasts Skin/Breast: Denies pruritus, Denies erythema, Denies rash and Denies wounds Neurologic Neurologic: Denies behavioral changes, Denies confusion, Denies dizziness, Denies frequent falls, Denies loss of vision, Denies numbness, Denies tingling and Denies weakness Psychiatric Psychiatric: Denies behavioral changes and Denies confusion Endocrine Endocrine: Denies fatigue and Denies palpitations Allergic/Immunologic Allergic/Immunologic: Denies wheezing Patient History <Micah Zaragoza PA-C - Last Filed: 10/02/21 20:30> Medical History Gout HTN (hypertension) Surgical History History of elbow surgery Status post appendectomy Social History Smoking Status: Current every day smoker Smoking Status: Current every day smoker tobacco type: cigarettes alcohol intake frequency: holidays/special occasions only Substance Use Type: does not use Exam <Micah Zaragoza PA-C - Last Filed: 10/02/21 20:30> Narrative Exam Narrative: GENERAL: 66 year old patient appears stated age. Well-developed patient, in mild distress. HEAD: Atraumatic. Normocephalic. EYES: Pupils equal round and reactive. Extraocular motions intact. No scleral icterus. No injection or drainage. ENT: Nose without bleeding, purulent drainage. Throat without erythema, tonsillar hypertrophy or exudate. Airway patent. NECK: Trachea midline. Non tender CARDIOVASCULAR: Regular rate and rhythm without murmurs, gallops, or rubs. RESPIRATORY: Clear to auscultation. Breath sounds equal bilaterally. No wheezes, rales, or rhonchi. GASTROINTESTINAL: Abdomen soft, non-tender, nondistended. EXTREMITIES: No edema or joint tenderness. BACK: No deformity or crepitance. No flank tenderness. Tenderness to palpation appreciated over the area of the L4-L5 paraspinal muscles bilaterally. Tenderness over the sacrum bilaterally. No overlying erythema or ecchymosis appreciated. Pain with resisted plantar flexion of the right foot. NEURO: AOx3. Good sensation light touch appreciated throughout the bilateral lower extremities. Gross motor function intact of the bilateral lower extremities. SKIN: No rash or erythema of visible areas Initial Vital Signs Initial Vital Signs: Vital Signs Temperature 98.3 F 10/02/21 19:11 Pulse Rate 63 10/02/21 19:11 Respiratory Rate 20 10/02/21 19:11 Blood Pressure 188/84 H 10/02/21 19:11 Pulse Oximetry 92 10/02/21 19:11 <Doretha Powell DO - Last Filed: 10/03/21 03:09> Initial Vital Signs Initial Vital Signs: Vital Signs Temperature 98.3 F 10/02/21 19:11 Pulse Rate 63 10/02/21 19:11 Respiratory Rate 20 10/02/21 19:11 Blood Pressure 188/84 H 10/02/21 19:11 Pulse Oximetry 92 10/02/21 19:11 Course <Micah Zaragoza PA-C - Last Filed: 10/02/21 20:30> Course Course Narrative: Discussed plan with patient to provide him with pain medications in the emergency department, however he states that he will be driving himself home and would prefer to take medications when he gets home. He does agree to intramuscular Toradol injection prior to discharge. Orders Ordered: Discontinued Medications Ketorolac Tromethamine (Ketorolac 30 Mg/Ml Vial) 15 mg IM NOW ONE Stop: 10/02/21 19:38 Last Admin: 10/02/21 19:46 Dose: 15 mg Documented by: POLO Vital Signs Vital signs: Vital Signs - 8 hr 10/02/21 19:11 10/02/21 19:59 Temperature 98.3 F Pulse Rate 63 60 Respiratory Rate 20 20 Blood Pressure 188/84 H 175/82 H Pulse Oximetry 92 93 <Doretha Powell DO - Last Filed: 10/03/21 03:09> Orders Ordered: Discontinued Medications Ketorolac Tromethamine (Ketorolac 30 Mg/Ml Vial) 15 mg IM NOW ONE Stop: 10/02/21 19:38 Last Admin: 10/02/21 19:46 Dose: 15 mg Documented by: POLO Vital Signs Vital signs: Vital Signs - 8 hr 10/02/21 19:11 10/02/21 19:59 Temperature 98.3 F Pulse Rate 63 60 Respiratory Rate 20 20 Blood Pressure 188/84 H 175/82 H Pulse Oximetry 92 93 MDM - Back Pain/Injury <Micah Zaragoza PA-C - Last Filed: 10/02/21 20:30> MDM Narrative Medical decision making narrative: Differential diagnosis to consider but not limited to musculoskeletal low back pain versus cauda equinus syndrome versus disc herniation versus disc protrusion versus spinal stenosis. Discussed plan with patient to prescribe him medications to help alleviate his discomfort. States that this time he is comfortable being discharged home and is stable for discharge. Strict return precautions were discussed with the patient prior to discharge. Discharge Plan Departure Patient Disposition: Home Clinical Impression: Low back pain, Strain of lumbar region Instructions: DI for Low Back Pain Activity Restrictions/Additional Instructions: *You have been diagnosed with low back pain, strain of lumbar region *What to do: *Please continue to take your regular medications as directed. [X] New medication prescriptions sent to your pharmacy: [facility]- Baclofen [X] New medication written as a paper prescription - Oxycodone [ ] No new medications given You were evaluated in the emergency department today for low back pain. I have prescribed you a short course of medications help alleviate your discomfort. Please ensure that you are using the oxycodone only for the most significant pain, the baclofen (which is a muscle relaxer) can be used up to 3 times daily. Please follow-up with the primary care provider within the next 2-3 days for further evaluation and management. Do not hesitate to return to the emergency department if you experience fever, worsening pain, loss of bowel control, loss of bladder control, loss of sensation in lower extremities, or any other concerning symptoms. *Please follow up with your primary care provider in 2-3 days, call for an appointment. Let them know you were seen in the Emergency Department and that we ask that you be seen in follow up. We will electronically transmit a record of today's note if your PCP is in our system *If you do not have a primary care provider please contact the [facility] Resource line at [phone]. They will ask some questions about your medical history and help get you set up with a doctor in the community. *Return to Emergency Department if you should have any new, worsening or concerning symptoms, such as fever greater than 101 F, shaking chills, worsening pain, persistent vomiting or other bothersome symptoms. Prescriptions: New oxycodone 5 mg tablet 5 mg PO BID PRN (Reason: pain) Qty: 15 0RF baclofen 20 mg tablet 20 mg PO TID Qty: 20 0RF No Action aspirin 81 MG tablet,delayed release (DR/EC) 81 mg PO QDAY Qty: 0 0RF fluticasone propionate [Flonase Allergy Relief] 9.9 ML spray,suspension 1 - 2 spray Intranasal QDAY Qty: 1 0RF prednisone 50 MG tablet 50 mg PO AMCC 3 Days Qty: 0 0RF oxycodone-acetaminophen [Percocet] 5-325 mg tablet 1 tab PO Q4-6H PRN (Reason: pain) Qty: 10 0RF Rx Instructions: Take 1-2 tabs every 4-6 hours prn back pain. Stop Tramadol. Do not drive prednisone 20 mg tablet 40 mg PO DAILY Qty: 10 0RF colchicine 0.6 mg capsule 0.6 mg PO DAILY Qty: 3 0RF methylprednisolone [Medrol (Tad)] 4 mg tablets,dose pack See Rx Instructions PO .COMPLEX Qty: 21 0RF Rx Instructions: orally per package directions Stand Alone Forms: Work Release Note <Doretha Powell, - Last Filed: 10/03/21 03:09> Cosign ED Attending Cosignature Attestation: I was immediately available in the department for consultation. Documentation has been reviewed.
[2021-10-02] MEDS: KETOROLAC 30 MG/ML VIAL 15 MG IM (19:46)
[2021-10-02 19:59] VITALS: BP 175/82; PULSE 60; RESP 20; O2SAT 93
== END 2021-10-02 20:01 | disposition home or self-care (01) ==
PROVIDERS: Emergency Provider Physician Assistant
DX: S39.012A Strain of muscle, fascia and tendon of lower back, initial encounter (principal); X50.1XXA Overexertion from prolonged static or awkward postures, initial encounter; Y99.0 Civilian activity done for income or pay
CPT/HCPCS: 96372; 99283; J1885

== ENCOUNTER 2022-09-06 00:16 | Emergency (ER) | payer OTHER, SELFPAY ==
[2022-09-06 00:21] VITALS: BP 160/74; PULSE 75; RESP 16; TEMP 37; O2SAT 96; BMI 35.4
--- NOTE | 2022-09-06 04:29 | ED_ITS ---
HPI - Back Pain/Injury General Chief Complaint: Back Pain/Injury Stated Complaint: Back pain Time Seen by Provider: 09/06/22 04:11 Source: patient History of Present Illness HPI Narrative: Patient 67-year-old male with history of back pain presenting today with sudden onset of back pain. He was getting out of a truck at work his heel slipped and he landed with leg extended. He has bilateral back pain. No numbness tingling or weakness in his legs. No change in bowel or bladder habits. No weakness. He previously had a go to physical therapy for 6 weeks. He says Advil typically helps however he has not been able to make home yet for any medication. Related Data Home Medications Medication Instructions Recorded Confirmed aspirin 81 mg tablet,delayed 81 mg PO QDAY ##0 10/07/16 release Previous Rx's Medication Instructions Recorded fluticasone propionate 50 1 - 2 spray intranasal QDAY ##1 10/07/16 mcg/actuation nasal spray,suspension (Flonase Allergy Relief) prednisone 50 mg tablet 50 mg PO [facility] 3 days #0 tabs 10/07/16 oxycodone-acetaminophen 5 mg-325 1 tab PO Q4-6H PRN pain #10 tabs 02/21/18 mg tablet (Percocet) prednisone 20 mg tablet 40 mg PO DAILY #10 tabs 06/07/20 colchicine 0.6 mg capsule 0.6 mg PO DAILY #3 caps 08/20/21 methylprednisolone 4 mg tablets in See Rx Instructions PO .COMPLEX 08/20/21 a dose pack (Medrol (Tad)) #21 ea baclofen 20 mg tablet 20 mg PO TID #20 tabs 10/02/21 oxycodone 5 mg tablet 5 mg PO BID PRN pain #15 tabs 10/02/21 cyclobenzaprine 5 mg tablet 5 mg PO TID PRN muscle spasm #10 09/06/22 tabs Allergies Allergy/AdvReac Type Severity Reaction Status Date / Time chloramphenicol Allergy Unknown RASH Verified 09/06/22 00:21 [CHLORAMPHENICOL] ITCHING shellfish derived Allergy Unknown THROAT Verified 09/06/22 00:21 [SHELLFISH DERIVED] CLOSES UP Review of Systems Review of Systems ROS Unobtainable: All systems reviewed & are unremarkable except as noted in HPI and below Patient History Medical History Gout HTN (hypertension) Surgical History History of elbow surgery Status post appendectomy Social History Smoking Status: Current every day smoker Smoking Status: Current every day smoker tobacco type: cigarettes alcohol intake frequency: holidays/special occasions only Substance Use Type: does not use Exam Initial Vital Signs Initial Vital Signs: Vital Signs Temperature 98.6 F 09/06/22 00:21 Pulse Rate 75 09/06/22 00:21 Respiratory Rate 16 09/06/22 00:21 Blood Pressure 160/74 H 09/06/22 00:21 Pulse Oximetry 96 09/06/22 00:21 Oxygen Delivery Method Room Air 09/06/22 00:21 GENERAL: Alert pleasant sitting in wheelchair CARDIOVASCULAR: peripheral pulses in tact, cap refill <2 sec RESPIRATORY: No respiratory distress, speaks in full sentences without difficulty BACK: No vertebral tenderness tender bilateral lower lumbar area tender to touch EXTREMITIES: Normal range of motion, no clubbing or edema. Neurovascularly intact NEUROLOGICAL: Cranial nerves II through XII grossly intact. Normal gait and speech. SKIN: Warm, dry, no petechiae, no rashes or lesions. Course Vital Signs Vital signs: Vital Signs - 8 hr 09/06/22 00:21 Temperature 98.6 F Pulse Rate 75 Respiratory Rate 16 Blood Pressure 160/74 H Pulse Oximetry 96 Oxygen Delivery Method Room Air MDM - Back Pain/Injury MDM Narrative Medical decision making narrative: Patient 67-year-old male history of back pain presenting today with back pain after injury at work. No numbness tingling or weakness no evidence or signs or symptoms of cauda equina. Pain is reproducible to touch. He says previously ibuprofen works he does not want any narcotics. He overall appears comfortable. Discharge Plan Departure Patient Disposition: Home Clinical Impression: Back pain Instructions: DI for Back Spasm Activity Restrictions/Additional Instructions: *You have been diagnosed with back pain *What to do: You may or may not require physical therapy again. Heating pad light stretches light activity *Continue to take medications as directed Ibuprofen 600 mg every 6 hours if needed for myic-wn-jrjdaqiv pain Flexeril 5 mg every 8 hours if needed for muscle spasm--> SENT TO [facility] *Follow up with your primary care provider in 2-3 days or call [phone] *Return to ER if you should have increasing pain weakness, numbness tingling weakness [or] any new, worsening or concerning symptoms Prescriptions: New cyclobenzaprine 5 mg tablet 5 mg PO TID PRN (Reason: muscle spasm) Qty: 10 0RF No Action aspirin 81 MG tablet,delayed release (DR/EC) 81 mg PO QDAY Qty: 0 fluticasone propionate [Flonase Allergy Relief] 9.9 ML spray,suspension 1 - 2 spray Intranasal QDAY Qty: 1 0RF prednisone 50 MG tablet 50 mg PO [facility] 3 Days Qty: 0 0RF oxycodone 5 mg tablet 5 mg PO BID PRN (Reason: pain) Qty: 15 0RF baclofen 20 mg tablet 20 mg PO TID Qty: 20 0RF oxycodone-acetaminophen [Percocet] 5-325 mg tablet 1 tab PO Q4-6H PRN (Reason: pain) Qty: 10 0RF Rx Instructions: Take 1-2 tabs every 4-6 hours prn back pain. Stop Tramadol. Do not drive prednisone 20 mg tablet 40 mg PO DAILY Qty: 10 0RF colchicine 0.6 mg capsule 0.6 mg PO DAILY Qty: 3 0RF methylprednisolone [Medrol (Tad)] 4 mg tablets,dose pack See Rx Instructions PO .COMPLEX Qty: 21 0RF Rx Instructions: orally per package directions Stand Alone Forms: Patient Portal/API
[2022-09-06] MEDS: KETOROLAC 30 MG/ML VIAL IM (04:54)
[2022-09-06] MEDS: CYCLOBENZAPRINE 10 MG PREPACK 1 BOTTLE MISC (04:54)
[2022-09-06 04:55] VITALS: BP 158/73; PULSE 64; RESP 16; O2SAT 96
== END 2022-09-06 05:05 | disposition home or self-care (01) ==
PROVIDERS: Emergency Provider Emergency Medicine
DX: S39.92XA Unspecified injury of lower back, initial encounter (principal); M54.9 Dorsalgia, unspecified; V87.8XXA Person injured in other specified noncollision transport accidents involving motor vehicle (traffic), initial encounter; Y99.0 Civilian activity done for income or pay
CPT/HCPCS: 96372; 99283; J1885

== ENCOUNTER → 2023-03-30 09:37 | Outpatient (CLI) | payer MEDICARE, OTHER, SELFPAY | PROVIDERS: Family Provider Family Medicine; PCP Family Medicine; Referring Provider Family Medicine; Visit Provider Family Medicine | DX: G62.9 Polyneuropathy, unspecified (principal); G64 Other disorders of peripheral nervous system; M79.661 Pain in right lower leg | CPT/HCPCS: 95886; 95911 ==

== ENCOUNTER 2023-11-12 05:12 | Emergency (ER) | payer MEDICARE, OTHER, SELFPAY ==
[2023-11-12 05:18] VITALS: BP 174/77; PULSE 69; RESP 18; TEMP 36.8; O2SAT 95; BMI 36.1
--- NOTE | 2023-11-12 05:25 | ED.SOB ---
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 He has chronic cough, somewhat increased last couple of days, still dry, still having swelling of the legs not having taken any Lasix from recent clinic visit. Denies chest pain. Denies pain to leg, denies leg swelling Related Data Home Medications Medication Instructions Recorded Confirmed aspirin 81 mg tablet,delayed 81 mg PO QDAY ##0 10/07/16 release Previous Rx's Medication Instructions Recorded fluticasone propionate 50 1 - 2 spray intranasal QDAY ##1 10/07/16 mcg/actuation nasal spray,suspension (Flonase Allergy Relief) prednisone 50 mg tablet 50 mg PO [facility] 3 days #0 tabs 10/07/16 oxycodone-acetaminophen 5 mg-325 1 tab PO Q4-6H PRN pain #10 tabs 02/21/18 mg tablet (Percocet) prednisone 20 mg tablet 40 mg (2 x 20 mg) PO DAILY #10 tabs 06/07/20 colchicine 0.6 mg capsule 0.6 mg PO DAILY #3 caps 08/20/21 methylprednisolone 4 mg tablets in See Rx Instructions PO .COMPLEX 08/20/21 a dose pack (Medrol (Tad)) #21 ea baclofen 20 mg tablet 20 mg PO TID #20 tabs 10/02/21 oxycodone 5 mg tablet 5 mg PO BID PRN pain #15 tabs 10/02/21 cyclobenzaprine 5 mg tablet 5 mg PO TID PRN muscle spasm #10 09/06/22 tabs Allergies Allergy/AdvReac Type Severity Reaction Status Date / Time chloramphenicol Allergy Unknown RASH Verified 09/06/22 00:21 [CHLORAMPHENICOL] ITCHING shellfish derived Allergy Unknown THROAT Verified 09/06/22 00:21 [SHELLFISH DERIVED] CLOSES UP Review of Systems <Israel Sanchez MD - Last Filed: 11/12/23 07:57> Review of Systems ROS Unobtainable: All systems reviewed & are unremarkable except as noted in HPI and below Patient History <Israel Sanchez MD - Last Filed: 11/12/23 07:57> Medical History Gout HTN (hypertension) Surgical History History of elbow surgery Status post appendectomy Social History Smoking Status: Current every day smoker Smoking Status: Current every day smoker tobacco type: cigarettes alcohol intake frequency: holidays/special occasions only Substance Use Type: does not use Exam <Israel Sanchez MD - Last Filed: 11/12/23 07:57> Narrative Exam Narrative: GENERAL: Well-developed patient, in mild distress. HEAD: Atraumatic. Normocephalic. EYES: Pupils equal round and reactive. Extraocular motions intact. No scleral icterus. No injection or drainage. ENT: Nose without bleeding, purulent drainage. Throat without erythema, tonsillar hypertrophy or exudate. Airway patent. NECK: Trachea midline. Non tender CARDIOVASCULAR: Regular rate and rhythm without murmurs, gallops, or rubs. RESPIRATORY: Clear to auscultation. Breath sounds equal bilaterally. No wheezes, rales, or rhonchi. Speaks in full sentences, no retractions suprasternal or intercostal. GASTROINTESTINAL: Abdomen soft, non-tender, nondistended. EXTREMITIES: Has 1+ edema above ankles bilateral BACK: Nontender without deformity or crepitance. No flank tenderness. NEURO: AOx3. SKIN: No rash or erythema of visible areas Initial Vital Signs Initial Vital Signs: Vital Signs Temperature 98.2 F 11/12/23 05:18 Pulse Rate 69 11/12/23 05:18 Respiratory Rate 18 11/12/23 05:18 Blood Pressure 174/77 H 11/12/23 05:18 Pulse Oximetry 95 11/12/23 05:18 Oxygen Delivery Method Room Air 11/12/23 05:18 <Ashleigh Perez DO - Last Filed: 11/12/23 09:20> Initial Vital Signs Initial Vital Signs: Vital Signs Temperature 98.2 F 11/12/23 05:18 Pulse Rate 69 11/12/23 05:18 Respiratory Rate 18 11/12/23 05:18 Blood Pressure 174/77 H 11/12/23 05:18 Pulse Oximetry 95 11/12/23 05:18 Oxygen Delivery Method Room Air 11/12/23 05:18 Course <Israel Sanchez MD - Last Filed: 11/12/23 07:57> Orders Ordered: ED Orders 11/12/23 05:26 XR chest 1V Stat EKG-12 Lead Stat Measure peak expiratory flow ONCE RT Consult Eval and Treat NOW 11/12/23 05:30 EKG-12 Lead Stat 11/12/23 05:38 Complete Blood Count AUTO DIFF Stat Comprehensive Metabolic Panel Stat Lactate (Lactic Acid) Stat NT-proBNP (BNP-Adult 18+) Stat Prothrombin Time INR Stat Respiratory Panel (Film Array) Routine Troponin I Stat 11/12/23 07:40 Trop I [Troponin I] Stat Discontinued Medications Albuterol (Albuterol 1.25 Mg/3 Ml Neb (Pediatric)) 1.25 mg INH NOW ONE Stop: 11/12/23 05:33 Last Admin: 11/12/23 05:38 Dose: Not Given Documented By: AB Albuterol (Albuterol 2.5 Mg/3 Ml Neb (Adult)) 2.5 mg INH NOW ONE Stop: 11/12/23 05:38 Last Admin: 11/12/23 05:44 Dose: 2.5 mg Documented By: CALEB Furosemide (Furosemide 40 Mg/4 Ml Vial) 40 mg IV NOW ONE Stop: 11/12/23 06:14 Last Admin: 11/12/23 06:23 Dose: 40 mg Documented By: KALEB Sodium Chloride (Normal Saline 0.9%) 1,000 mls @ 150 mls/hr IV CONT QUOC Last Admin: 11/12/23 06:36 Dose: Not Given Documented By: KALEB Vital Signs Vital signs: Vital Signs - 8 hr 11/12/23 05:18 11/12/23 05:49 11/12/23 07:43 Temperature 98.2 F Pulse Rate 69 68 71 Respiratory Rate 18 24 Blood Pressure 174/77 H Pulse Oximetry 95 95 95 Oxygen Delivery Method Room Air Room Air Room Air 11/12/23 08:36 Temperature 97.0 F L Pulse Rate 64 Respiratory Rate Blood Pressure 177/77 H Pulse Oximetry 96 Oxygen Delivery Method Room Air <Ashleigh Perez DO - Last Filed: 11/12/23 09:20> Orders Ordered: ED Orders 11/12/23 05:26 XR chest 1V Stat EKG-12 Lead Stat Measure peak expiratory flow ONCE RT Consult Eval and Treat NOW 11/12/23 05:30 EKG-12 Lead Stat 11/12/23 05:38 Complete Blood Count AUTO DIFF Stat Comprehensive Metabolic Panel Stat Lactate (Lactic Acid) Stat NT-proBNP (BNP-Adult 18+) Stat Prothrombin Time INR Stat Respiratory Panel (Film Array) Routine Troponin I Stat 11/12/23 07:40 Trop I [Troponin I] Stat Discontinued Medications Albuterol (Albuterol 1.25 Mg/3 Ml Neb (Pediatric)) 1.25 mg INH NOW ONE Stop: 11/12/23 05:33 Last Admin: 11/12/23 05:38 Dose: Not Given Documented By: AB Albuterol (Albuterol 2.5 Mg/3 Ml Neb (Adult)) 2.5 mg INH NOW ONE Stop: 11/12/23 05:38 Last Admin: 11/12/23 05:44 Dose: 2.5 mg Documented By: MORAF Furosemide (Furosemide 40 Mg/4 Ml Vial) 40 mg IV NOW ONE Stop: 11/12/23 06:14 Last Admin: 11/12/23 06:23 Dose: 40 mg Documented By: KALEB Sodium Chloride (Normal Saline 0.9%) 1,000 mls @ 150 mls/hr IV CONT QUOC Last Admin: 11/12/23 06:36 Dose: Not Given Documented By: JG Vital Signs Vital signs: Vital Signs - 8 hr 11/12/23 05:18 11/12/23 05:49 11/12/23 07:43 Temperature 98.2 F Pulse Rate 69 68 71 Respiratory Rate 18 18 24 Blood Pressure 174/77 H Pulse Oximetry 95 95 95 Oxygen Delivery Method Room Air Room Air Room Air 11/12/23 08:36 Temperature 97.0 F L Pulse Rate 64 Respiratory Rate Blood Pressure 177/77 H Pulse Oximetry 96 Oxygen Delivery Method Room Air MDM - SOB/Dyspnea <Israel Sanchez MD - Last Filed: 11/12/23 07:57> Lab Data Attestation: I reviewed the patient's lab results. 11/12/23 05:38 11/12/23 05:38 Labs: Lab Results 11/12/23 11/12/23 Range/Units 05:38 07:40 WBC 9.8 (4.5-11.0) X10^3/uL RBC 4.81 (4.5-5.9) X10^6/uL Hgb 13.0 L (13.5-17.5) g/dL Hct 39.4 L (41-53) % MCV 81.9 (80-100) fL MCH 27.1 (26-34) PG MCHC 33.1 (30-36) % RDW 15.1 H (11.6-14.8) % Plt Count 204 (150-400) X10^3/uL Neut % (Auto) 67.4 (50-75) % Lymph % (Auto) 23.4 L (25-40) % [place] % (Auto) 7.4 (3-14) % Eos % (Auto) 0.9 L (2-4) % Baso % (Auto) 0.9 (0-2) % Neut # (Auto) 6600 (6350-9193) /uL Lymph # (Auto) 2300 (3678-8980) /uL [place] # (Auto) 700 (0-900) /uL Eos # (Auto) 100 (0-450) /uL Baso # (Auto) 100 (0-100) /uL PT 13.6 H (9.4-12.5) SECONDS INR 1.2 (0.9-1.3) Sodium 143 (137-145) mmol/L Potassium 4.1 (3.4-5.1) mmol/L Chloride 112 H (98-107) mmol/L Carbon Dioxide 22 (22-32) mmol/L BUN 11 (9-20) mg/dL Creatinine 0.71 (0.66-1.25) mg/dL Estimated GFR > 60 (>60) mL/min BUN/Creatinine Ratio 15.5 (6-22) Glucose 134 H (80-110) mg/dL Lactate 1.6 (0.7-2.1) mmol/L Calcium 8.9 (8.4-10.2) mg/dL Total Bilirubin 0.7 (0.2-1.3) mg/dL AST 24 (17-59) IU/L ALT 30 (<50) IU/L Alkaline Phosphatase 67 (38-126) U/L Troponin I 0.035 H 0.032 (0.01-0.034) ng/mL NT-Pro-B Natriuret Pep 1190 H (<125) pg/mL Total Protein 7.1 (6.3-8.2) g/dL Albumin 4.1 (3.5-5.0) g/dL Globulin 3.0 (1.7-4.1) g/dL Albumin/Globulin Ratio 1.4 (1.0-2.8) Chlamy pneumoniae PCR Not detected (Not Detect) Adenovirus (PCR) Not detected (Not Detect) B.parapertussis DNA PCR Not detected (Not Detecte) Coronavirus OC43 (PCR) Not detected (Not Detect) Coronavirus HKU1 (PCR) Not detected (Not Detect) Coronavirus 229E (PCR) Not detected (Not Detect) SARS-CoV-2 (PCR) Not detected (Not Detecte) Coronavirus NL63 (PCR) Not detected (Not Detect) Human Metapneumovir PCR Not detected (Not Detect) Influenza Type A (PCR) Not detected (Not Detect) Influenza Type B (PCR) Not detected (Not Detect) M. pneumoniae (PCR) Not detected (Not Detect) Parainfluenza 1 (PCR) Not detected (Not Detect) Parainfluenza 2 (PCR) Not detected (Not Detect) Parainfluenza 3 (PCR) Not detected (Not Detect) Parainfluenza 4 (PCR) Not detected (Not Detect) RSV (PCR) Not detected (Not Detect) Entero/Rhino (PCR) Not detected (Not Detect) MDM Narrative Medical decision making narrative: 68-year-old male with recent coughing history of COPD, no oxygen requirement, uses inhalers at home. 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 DDX consider exacerbation of COPD, exacerbation of CHF, pneumonia, influenza, other. Chest x-ray labs EKG pending, BNP requested. Trial of albuterol SVN. Patient feels improved some after albuterol dose. IV Lasix 40 mg, labs pending including BNP BNP 1100, troponin indeterminate range consider interval repeat. IV Lasix dose given, evaluate for diuresis affect. Some improvement with albuterol SVN, continue inhalers at home. Chest x-ray one view. Impression: ?Borderline to mild cardiomegaly with possible pulmonary vascular congestion. Left basilar atelectasis/infiltrate. Blunting of the left costophrenic recess due to pleural adhesions/thickening versus pleural effusion.? Teleradiology Further observe for response to SVN and IV Lasix diuresis, and repeat interval troponin. Signed out to oncoming ED physician Dr. Perez. <Ashleigh Perez, - Last Filed: 11/12/23 09:20> Lab Data Labs: Lab Results 11/12/23 11/12/23 Range/Units 05:38 07:40 WBC 9.8 (4.5-11.0) X10^3/uL RBC 4.81 (4.5-5.9) X10^6/uL Hgb 13.0 L (13.5-17.5) g/dL Hct 39.4 L (41-53) % MCV 81.9 (80-100) fL MCH 27.1 (26-34) PG MCHC 33.1 (30-36) % RDW 15.1 H (11.6-14.8) % Plt Count 204 (150-400) X10^3/uL Neut % (Auto) 67.4 (50-75) % Lymph % (Auto) 23.4 L (25-40) % [place] % (Auto) 7.4 (3-14) % Eos % (Auto) 0.9 L (2-4) % Baso % (Auto) 0.9 (0-2) % Neut # (Auto) 6600 (2535-9114) /uL Lymph # (Auto) 2300 (4992-1144) /uL [place] # (Auto) 700 (0-900) /uL Eos # (Auto) 100 (0-450) /uL Baso # (Auto) 100 (0-100) /uL PT 13.6 H (9.4-12.5) SECONDS INR 1.2 (0.9-1.3) Sodium 143 (137-145) mmol/L Potassium 4.1 (3.4-5.1) mmol/L Chloride 112 H (98-107) mmol/L Carbon Dioxide 22 (22-32) mmol/L BUN 11 (9-20) mg/dL Creatinine 0.71 (0.66-1.25) mg/dL Estimated GFR > 60 (>60) mL/min BUN/Creatinine Ratio 15.5 (6-22) Glucose 134 H (80-110) mg/dL Lactate 1.6 (0.7-2.1) mmol/L Calcium 8.9 (8.4-10.2) mg/dL Total Bilirubin 0.7 (0.2-1.3) mg/dL AST 24 (17-59) IU/L ALT 30 (<50) IU/L Alkaline Phosphatase 67 (38-126) U/L Troponin I 0.035 H 0.032 (0.01-0.034) ng/mL NT-Pro-B Natriuret Pep 1190 H (<125) pg/mL Total Protein 7.1 (6.3-8.2) g/dL Albumin 4.1 (3.5-5.0) g/dL Globulin 3.0 (1.7-4.1) g/dL Albumin/Globulin Ratio 1.4 (1.0-2.8) Chlamy pneumoniae PCR Not detected (Not Detect) Adenovirus (PCR) Not detected (Not Detect) B.parapertussis DNA PCR Not detected (Not Detecte) Coronavirus OC43 (PCR) Not detected (Not Detect) Coronavirus HKU1 (PCR) Not detected (Not Detect) Coronavirus 229E (PCR) Not detected (Not Detect) SARS-CoV-2 (PCR) Not detected (Not Detecte) Coronavirus NL63 (PCR) Not detected (Not Detect) Human Metapneumovir PCR Not detected (Not Detect) Influenza Type A (PCR) Not detected (Not Detect) Influenza Type B (PCR) Not detected (Not Detect) M. pneumoniae (PCR) Not detected (Not Detect) Parainfluenza 1 (PCR) Not detected (Not Detect) Parainfluenza 2 (PCR) Not detected (Not Detect) Parainfluenza 3 (PCR) Not detected (Not Detect) Parainfluenza 4 (PCR) Not detected (Not Detect) RSV (PCR) Not detected (Not Detect) Entero/Rhino (PCR) Not detected (Not Detect) ECG Data Attestation: I personally reviewed and interpreted this ECG as follows: Prior ECG tracings: available for review Interpretation: EKG 1. Sinus rhythm rate 67 [place] interval [address] depression noted in V6 similar to previous EKGs with persistent Q-waves in septal leads also similar to prior no acute ST elevation EKG 2. Sinus rhythm with persistent ST depression no acute ST elevation unchanged from prior MDM Narrative Medical decision making narrative: 68-year-old male with recent coughing history of COPD, no oxygen requirement, uses inhalers at home. 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 DDX consider exacerbation of COPD, exacerbation of CHF, pneumonia, influenza, other. Chest x-ray labs EKG pending, BNP requested. Trial of albuterol SVN. Patient feels improved some after albuterol dose. IV Lasix 40 mg, labs pending including BNP BNP 1100, troponin indeterminate range consider interval repeat. IV Lasix dose given, evaluate for diuresis affect. Some improvement with albuterol SVN, continue inhalers at home. Chest x-ray one view. Impression: ?Borderline to mild cardiomegaly with possible pulmonary vascular congestion. Left basilar atelectasis/infiltrate. Blunting of the left costophrenic recess due to pleural adhesions/thickening versus pleural effusion.? Teleradiology Further observe for response to SVN and IV Lasix diuresis, and repeat interval troponin. Signed out to oncoming ED physician Dr. Perez. Dr. Perez-patient signed out to me by Dr. Sanchez and seen evaluated patient myself. He reports that he is overall feeling significantly better in his diuresed about 1100. He was previously seen at a clinic last week was given Lasix and he said antibiotics but started having increased orthopnea and dyspnea with exertion 2 nights ago. He reports his legs are significantly swollen. He has known peripheral arterial disease with stents in his leg and takes Xarelto. He denies any sort of chest pain. EKG has been reviewed sinus rhythm with persistent ST depression in V6 similar to EKG in [address] elevations Q-waves noted in septal leads consistent with previous EKGs Repeat troponin has actually gone down. He continues to urinate reports that breathing is significantly improved. It appears that he was put on 20 mg of Lasix on October 25. He has no known history of congestive heart failure. He has an outpatient echocardiogram scheduled for December. Recommend increasing his Lasix to 40 mg for a few days. Encouraged to return to the ED if you should have new or worsening symptoms or return if symptoms. He has no prior history of congestive heart failure, although I highly suspect this is what he has now. Discharge Plan Departure Patient Disposition: Home Clinical Impression: Congestive heart failure Instructions: DI for Heart Failure Activity Restrictions/Additional Instructions: *You have been diagnosed with probable congestive heart failure *What to do: At this time you do need an outpatient echocardiogram. Please be sure to follow-up with your provider next week *Continue to take medications as directed Lasix/furosemide 40 mg once a day for 3-4 days then resume 20 mg once daily *Follow up with your primary care provider in 2-3 days or call [phone] *Return to ER if you should have increasing swelling chest pain shortness of breath or any new, worsening or concerning symptoms Prescriptions: No Action aspirin 81 MG tablet,delayed release (DR/EC) 81 mg PO QDAY Qty: 0 fluticasone propionate [Flonase Allergy Relief] 9.9 ML spray,suspension 1 - 2 spray Intranasal QDAY Qty: 1 0RF prednisone 50 MG tablet 50 mg PO [facility] 3 Days Qty: 0 0RF oxycodone 5 mg tablet 5 mg PO BID PRN (Reason: pain) Qty: 15 0RF baclofen 20 mg tablet 20 mg PO TID Qty: 20 0RF cyclobenzaprine 5 mg tablet 5 mg PO TID PRN (Reason: muscle spasm) Qty: 10 0RF oxycodone-acetaminophen [Percocet] 5-325 mg tablet 1 tab PO Q4-6H PRN (Reason: pain) Qty: 10 0RF Rx Instructions: Take 1-2 tabs every 4-6 hours prn back pain. Stop Tramadol. Do not drive prednisone 20 mg tablet 40 mg PO DAILY Qty: 10 0RF colchicine 0.6 mg capsule 0.6 mg PO DAILY Qty: 3 0RF methylprednisolone [Medrol (Tad)] 4 mg tablets,dose pack See Rx Instructions PO .COMPLEX Qty: 21 0RF Rx Instructions: orally per package directions Referrals: Roni Gerber MD [Primary Care Provider] - Stand Alone Forms: Patient Portal/API
--- NOTE | 2023-11-12 05:26 | DI.RAD.S_ITS ---
PROCEDURE: XR CHEST 1V INDICATIONS: Shortness of breath TECHNIQUE: One view of the chest was acquired. COMPARISON: None. FINDINGS: Surgical changes and devices: None. Lungs and pleura: There is pulmonary vascular congestion. Questionable opacity in bilateral infrahilar region are seen. Blunting of left costophrenic angle is seen. No pneumothorax. Mediastinum: Mediastinal contours appear normal. Heart size is enlarged. Bones and chest wall: No suspicious bony lesions. Overlying soft tissues appear unremarkable. IMPRESSION: Cardiomegaly and congestion. Cannot rule out small bilateral infrahilar infiltrates versus atelectasis. Suggestion of trace left pleural effusion versus thickening. No pneumothorax. No discrepancies from preliminary reading. Dictated by: Dereck Zarate M.D. on 11/12/2023 at 8:10 Approved by: Dereck Zarate M.D. on 11/12/2023 at 8:10
[2023-11-12] MEDS: ALBUTEROL 2.5 MG/3 ML NEB (ADULT) INH (05:44)
[2023-11-12 05:48] LABS: Add Manual Diff / Slide Review NO; Basophils Absolute Auto 100 /uL (0-100); Basophils Percent Auto 0.9 % (0-2); Eosinophils Absolute Auto 100 /uL (0-450); Eosinophils Percent Auto 0.9 % (2-4); Hematocrit 39.4 % (41-53); Lymphocytes Absolute Auto 2300 /uL (1100-4500); Lymphocytes Percent Auto 23.4 % (25-40); Mean Corpuscular HGB Conc 33.1 % (30-36); Mean Corpuscular Hemoglobin 27.1 PG (26-34); Mean Corpuscular Volume 81.9 fL (80-100); Monocytes Absolute Auto 700 /uL (0-900); Monocytes Percent Auto 7.4 % (3-14); Neutrophils Absolute Auto 6600 /uL (1500-7000); Neutrophils Percent Auto 67.4 % (50-75); Platelet Count 204 X10^3/uL (150-400); Red Blood Cell Count 4.81 X10^6/uL (4.5-5.9); Red Cell Distribution Width 15.1 % (11.6-14.8); White Blood Cell Count 9.8 X10^3/uL (4.5-11.0)
[2023-11-12 05:49] VITALS: PULSE 68; RESP 18; O2SAT 95
[2023-11-12 05:56] LABS: INR 1.2 (0.9-1.3); Prothrombin Time 13.6 SECONDS (9.4-12.5)
[2023-11-12 06:00] LABS: Lactate (Lactic Acid) 1.6 mmol/L (0.7-2.1)
[2023-11-12 06:13] LABS: Alanine Aminotransferase 30 IU/L (<50); Albumin 4.1 g/dL (3.5-5.0); Albumin Globulin Ratio 1.4 (1.0-2.8); Alkaline Phosphatase 67 U/L (38-126); Aspartate Aminotransferase 24 IU/L (17-59); BUN Creatinine Ratio 15.5 (6-22); Bilirubin Total 0.7 mg/dL (0.2-1.3); Blood Urea Nitrogen 11 mg/dL (9-20); Calcium 8.9 mg/dL (8.4-10.2); Carbon Dioxide 22 mmol/L (22-32); Chloride 112 mmol/L (98-107); Estimated Glomerular Filt Rate > 60 mL/min (>60); Glucose 134 mg/dL (80-110); HEMOLYSIS < 15 (0-50); Potassium 4.1 mmol/L (3.4-5.1); Sodium 143 mmol/L (137-145); Total Protein 7.1 g/dL (6.3-8.2)
[2023-11-12] MEDS: FUROSEMIDE 40 MG/4 ML VIAL IV (06:23)
[2023-11-12 06:25] LABS: NT-proBNP (BNP-Adult 18+) 1190 pg/mL (<125); Troponin I 0.035 ng/mL (0.01-0.034)
[2023-11-12 07:43] VITALS: PULSE 71; RESP 24; O2SAT 95
[2023-11-12 08:06] LABS: Adenovirus Not Detected (Not Detect); B. parapertussis Not Detected (Not Detecte); Bordetella pertussis Not Detected (Not Detect); Chlamydophila pneumoniae Not Detected (Not Detect); Coronavirus 229E Not Detected (Not Detect); Coronavirus HKU1 Not Detected (Not Detect); Coronavirus NL 63 Not Detected (Not Detect); Coronavirus OC43 Not Detected (Not Detect); Human Metapneumovirus Not Detected (Not Detect); Human Rhinovirus/Enterovirus Not Detected (Not Detect); Influenza A Not Detected (Not Detect); Influenza B Not Detected (Not Detect); Mycoplasma pneumoniae Not Detected (Not Detect); Parainfluenza Virus 1 Not Detected (Not Detect); Parainfluenza Virus 2 Not Detected (Not Detect); Parainfluenza Virus 3 Not Detected (Not Detect); Parainfluenza Virus 4 Not Detected (Not Detect); Respiratory Syncytial Virus Not Detected (Not Detect); SARS- CoV-2 Not Detected (Not Detecte)
[2023-11-12 08:07] LABS: Troponin I 0.032 ng/mL (0.01-0.034)
[2023-11-12 08:36] VITALS: BP 177/77; PULSE 64; TEMP 36.1; O2SAT 96
== END 2023-11-12 08:52 | disposition home or self-care (01) ==
PROVIDERS: Emergency Medicine; Emergency Provider Emergency Medicine; Family Provider Family Medicine; PCP Family Medicine
DX: I50.9 Heart failure, unspecified (principal); R06.02 Shortness of breath; Z20.822 Contact with and (suspected) exposure to COVID-19; Z79.01 Long term (current) use of anticoagulants
CPT/HCPCS: 36415; 71045; 80053; 83605; 83880; 84484; 85025; 85610; 87633; 93005; 93010; 94640; 96374; 99284; J1940; J7613

== ENCOUNTER → 2023-12-21 08:36 | Outpatient (CLI) | payer MEDICARE, OTHER, SELFPAY ==
--- NOTE | 2023-12-21 08:38 | DI.ECHO.S_ITS ---
[facility]+ [facility] : : [id number] : : [place] : : [id number] : : Phone: [phone] Echocardiogram Report + + :Name: CARLOS ENRIQUE YIP Study Date: 12/21/2023 Height: 69 in : :[facility] ReadingLocation: Weight: 245 lb : : Gender: Male BSA: 2.3 m2 : :: 1955 Age: 68 yrs BP: 126/71 mmHg: :Reason For Study: ACUTE SYSTOLIC HEART FAILURE : :Ordering Physician: ANUJ, : :ADELAIDE Performed By: Deny Moralez : :Referring: ADELAIDE LESLIE : + + Interpretation Summary 1) Borderline enlarged left ventricle with mildly to moderately reduced systolic function (EF 40-45%). 2) Normal right ventricular size with mildly reduced function. 3) There is moderate aortic stenosis (valve area 1.2cm2, mean gradient 25mHg, severity raito 0.29)/ 4) There is mild to moderate aortic regurgitation. 5) There is mild to moderate mitral regurgitation. 6) No prior Echo available for comparison. Procedure: A two-dimensional transthoracic echocardiogram with color flow and Doppler was performed. The study quality was technically adequate. There is no prior echocardiogram noted for this patient. The patient was in sinus rhythm with heart rates between 58-70 bpm during the exam. Left Ventricle: The left ventricle is borderline dilated. Left ventricular wall thickness is normal. The ejection fraction is estimated to be 40-45%. There is mild to moderate global hypokinesis of the left ventricle. Right Ventricle: The right ventricle is normal size. Right ventricular systolic function is mildly reduced. Atria: The left atrium is moderately dilated. Right atrial size is normal. The interatrial septum grossly appears intact with no obvious evidence for an atrial septal defect. Mitral Valve: The mitral valve is normal. There is no mitral valve stenosis. There is mild to moderate mitral regurgitation. Aortic Valve: There is moderate aortic valve sclerosis. There is moderate aortic stenosis. The peak aortic velocity is 3.14 m/sec. The aortic valve mean gradient is 25.2 mmHg. The calculated aortic valve area is 1.2 cm2. There is mild to moderate aortic regurgitation. Tricuspid Valve: The tricuspid valve is not well visualized, but is grossly normal. There is no tricuspid stenosis. No tricuspid regurgitation. Pulmonic Valve: The pulmonic valve is not well visualized. There is no pulmonic valvular stenosis. There is no pulmonic valvular regurgitation. Great Vessels: The aortic root is normal size. The dimensions of the ascending aorta are normal. The inferior vena cava was not visualized. Pericardium/ Pleura There is no pericardial effusion. There is no pleural effusion. MMode/2D Measurements & Calculations LVIDd: 5.9 cm LVOT diam: 2.2 cm LVIDs: 4.5 cm Ao root diam: 3.3 cm FS: 22.8 % asc Aorta Diam: 2.9 cm IVSd: 0.85 cm LVPWd: 0.92 cm LV acosta. diameter/BSA (cm/m^2): 2.6 LV sys. diameter/BSA (cm/m^2): 2.0 LA A2 area: 29.0 cm2 RA long axis: 5.5 cm LA A4 area: 28.3 cm2 RA area: 14.6 cm2 LA length (vol): 6.2 cm RA vol: 33.2 ml LA vol: 113.1 ml RA : 14.7 ml/m2 LA vol index: 50.2 ml/m2 RVD1 (basal): 2.7 cm RVD2 (mid): 2.2 cm TAPSE: 1.9 cm Doppler Measurements & Calculations Ao V2 max: 314.3 cm/sec LVOT Max Figueroa: 99.3 cm/sec Ao V2 mean: 239.4 cm/sec LV V1 max P.9 mmHg Ao max P.5 mmHg LV V1 VTI: 22.6 cm Ao mean P.2 mmHg ALISON(I,D): 1.1 cm2 Ao V2 VTI: 78.4 cm ALISON(V,D): 1.2 cm2 sev ratio: 0.29 ALISON indexed to BSA (cm^2/m^2): 0.47 AI P1/2t: 440.6 msec AI dec slope: 277.0 cm/sec2 MV E max figueroa: 98.6 cm/sec PA V2 max: 89.1 cm/sec MV A max figueroa: 48.0 cm/sec PA V2 mean: 66.8 cm/sec MV E/A: 2.1 PA mean P.9 mmHg Med Peak E' Figueroa: 4.7 cm/sec PA pr(Accel): 34.5 mmHg E/E' med: 21.0 Lat Peak E' Figueroa: 5.6 cm/sec E/E' lat: 17.6 E/e' average: 19.3 MV dec time: 0.16 sec SVLVOT): 82.5 ml Reading Physician:11:55 AM
== END ==
PROVIDERS: Family Provider Family Medicine; PCP Family Medicine; Referring Provider Family Medicine; Visit Provider Family Medicine
DX: I08.0 Rheumatic disorders of both mitral and aortic valves (principal); I50.21 Acute systolic (congestive) heart failure
CPT/HCPCS: 93306

== ENCOUNTER 2023-12-22 20:13 | Emergency (ER) | payer MEDICARE, OTHER, SELFPAY ==
[2023-12-22] VITALS (82 sets, daily range): BP systolic 91–157; BP diastolic 46–89; PULSE 43–98; RESP 18–49; TEMP 36.6; O2SAT 86–98; BMI 35.4
--- NOTE | 2023-12-22 20:17 | DI.RAD.S_ITS ---
PROCEDURE: XR CHEST 1V INDICATIONS: chest pain TECHNIQUE: One view of the chest was acquired. COMPARISON: [facility], CR, XR CHEST 1V, 11/12/2023, 5:39. FINDINGS: Surgical changes and devices: None. Lungs and pleura: There is pulmonary vascular congestion. Chronic increased interstitial lung markings throughout bilateral lung chung are noted. No definite focal infiltrate. No pleural effusions or pneumothorax. Mediastinum: Mediastinal contours appear normal. Heart size is enlarged. Bones and chest wall: No suspicious bony lesions. Overlying soft tissues appear unremarkable. IMPRESSION: Cardiomegaly and mild congestion. Increased interstitial lung markings which may represent chronic interstitial lung disease versus mild pulmonary edema. No focal infiltrate, pleural effusion or pneumothorax. Dictated by: Dereck Zarate M.D. on 12/22/2023 at 20:57 Approved by: Dereck Zarate M.D. on 12/22/2023 at 20:58
--- NOTE | 2023-12-22 20:20 | EKG_ITS ---
[address] [address] Test Date: 2023-12-22 Pat Name: Wilfredo Magallanes Department: Room: Gender: Male [employer]ice: BLUE : 1955 Requested By: Order Number: [id number] Reading MD: Phill Medrano Measurements Intervals Robinson Rate: 97 P: 66 AL: 160 QRS: 81 QRSD: 104 T: 172 QT: 368 QTc: 467 Interpretive Statements Normal sinus rhythm Possible Left atrial enlargement Possible Anterior infarct , age undetermined Marked ST abnormality, possible lateral subendocardial injury Electronically Signed On 12-24-2023 17:14:05 PDT by Phill Medrano
--- NOTE | 2023-12-22 20:29 | ED.CHESTPAIN ---
HPI - Chest Pain General Chief Complaint: Chest Pain Stated Complaint: states heart attack Time Seen by Provider: 12/22/23 20:27 History of Present Illness HPI narrative: : NO SUSP REPRESENT CHRONIC INTERSTITIA Related Data Home Medications Medication Instructions Recorded Confirmed aspirin 81 mg tablet,delayed 81 mg PO QDAY ##0 10/07/16 release Previous Rx's Medication Instructions Recorded fluticasone propionate 50 1 - 2 spray intranasal QDAY ##1 10/07/16 mcg/actuation nasal spray,suspension (Flonase Allergy Relief) prednisone 50 mg tablet 50 mg PO [facility] 3 days #0 tabs 10/07/16 oxycodone-acetaminophen 5 mg-325 1 tab PO Q4-6H PRN pain #10 tabs 02/21/18 mg tablet (Percocet) prednisone 20 mg tablet 40 mg (2 x 20 mg) PO DAILY #10 tabs 06/07/20 colchicine 0.6 mg capsule 0.6 mg PO DAILY #3 caps 08/20/21 methylprednisolone 4 mg tablets in See Rx Instructions PO .COMPLEX 08/20/21 a dose pack (Medrol (Tad)) #21 ea baclofen 20 mg tablet 20 mg PO TID #20 tabs 10/02/21 oxycodone 5 mg tablet 5 mg PO BID PRN pain #15 tabs 10/02/21 cyclobenzaprine 5 mg tablet 5 mg PO TID PRN muscle spasm #10 09/06/22 tabs Allergies Allergy/AdvReac Type Severity Reaction Status Date / Time chloramphenicol Allergy Unknown RASH Verified 12/22/23 20:34 [CHLORAMPHENICOL] ITCHING shellfish derived Allergy Unknown THROAT Verified 12/22/23 20:34 [SHELLFISH DERIVED] CLOSES UP Review of Systems Review of Systems Narrative: Per HPI Patient History Medical History Gout HTN (hypertension) Surgical History History of elbow surgery Status post appendectomy Social History Smoking Status: Current every day smoker Smoking Status: Current every day smoker tobacco type: cigarettes alcohol intake frequency: holidays/special occasions only Substance Use Type: does not use Exam Narrative Exam Narrative: GENERAL: Well-developed patient, in moderate distress, anxious appearing. HEAD: Atraumatic. Normocephalic. EYES: Pupils equal round and reactive. Extraocular motions intact. No scleral icterus. No injection or drainage. ENT: Nose without bleeding, purulent drainage. Throat without erythema, tonsillar hypertrophy or exudate. Airway patent. NECK: Trachea midline. Non tender CARDIOVASCULAR: Regular rate and rhythm without murmurs, gallops, or rubs. RESPIRATORY: Clear to auscultation. Breath sounds equal bilaterally. No wheezes, rales, or rhonchi. GASTROINTESTINAL: Abdomen soft, non-tender, nondistended. EXTREMITIES: No edema or joint tenderness. BACK: Nontender without deformity or crepitance. No flank tenderness. NEURO: AOx3. Nonfocal neuro exam. SKIN: No rash or erythema of visible areas Initial Vital Signs Initial Vital Signs: Vital Signs Temperature 97.8 F 12/22/23 20:14 Pulse Rate 98 H 12/22/23 20:14 Respiratory Rate 24 12/22/23 20:14 Blood Pressure 146/89 H 12/22/23 20:14 Pulse Oximetry 86 L 12/22/23 20:14 Oxygen Delivery Method Room Air 12/22/23 20:14 Course Orders Ordered: Discontinued Medications Aspirin (Aspirin 81 Mg Chew Tab) 324 mg PO NOW ONE Stop: 12/22/23 20:18 Last Admin: 12/22/23 20:30 Dose: 324 mg Documented By: TITI Heparin Sodium (Porcine) (Heparin 5,000 Unit/Ml Vial) 5,000 unit IV NOW ONE Stop: 12/22/23 21:00 Last Admin: 12/22/23 21:07 Dose: 5,000 unit Documented By: SISSY Heparin Sodium (Porcine) (Heparin 5,000 Unit/Ml Vial) 2,500 unit 25 unit/kg (2500 unit) IV NOW ONE Stop: 12/23/23 05:01 Last Admin: 12/23/23 05:03 Dose: 2,500 unit Documented By: SISSY Sodium Chloride (Normal Saline 0.9%) 500 mls @ 1,000 mls/hr IV BOLUS ONE Stop: 12/22/23 21:10 Last Infusion: 12/22/23 21:48 Dose: Infused Documented By: Admin: 12/22/23 20:46 Dose: 1,000 mls/hr Documented By: SISSY Nitroglycerin (Nitroglycerin) 50 mg in 250 mls @ 1.5 mls/hr IV TITRATE QUOC; Protocol Last Admin: 12/22/23 22:12 Dose: 20 mcg/min, 6 mls/hr Documented By: Titration: 12/22/23 22:12 Dose: Infused Documented By: Admin: 12/22/23 21:54 Dose: 10 mcg/min, 3 mls/hr Documented By: Titration: 12/22/23 21:54 Dose: Infused Documented By: Admin: 12/22/23 21:13 Dose: 5 mcg/min, 1.5 mls/hr Documented By: SISSY Heparin Sodium/Dextrose (Heparin Drip) 25,000 unit in 500 mls @ 26.127 mls/hr IV CONT QUOC; Protocol Heparin Sodium/Dextrose (Heparin Drip) 25,000 unit in 500 mls @ 20 mls/hr IV CONT QUOC; Protocol Last Titration: 12/23/23 04:15 Dose: 1,100 units/hr, 22 mls/hr Documented By: SISSY Co-signed By: Admin: 12/22/23 21:11 Dose: 1,000 units/hr, 20 mls/hr Documented By: SISSY Co-signed By: [facility] Sodium Chloride (Normal Saline 0.9%) 1,000 mls @ 500 mls/hr IV BOLUS ONE Stop: 12/22/23 23:13 Last Admin: 12/22/23 21:49 Dose: Not Given Documented By: SISSY Morphine Sulfate (Morphine 4 Mg/Ml Inj) 4 mg IV NOW ONE Stop: 12/22/23 20:58 Last Admin: 12/22/23 20:59 Dose: Not Given Documented By: SISSY Nitroglycerin (Nitroglycerin 0.4mg Sl Prepack) 1 bottle MISC DIRECTED ONE Stop: 12/22/23 20:41 Last Admin: 12/22/23 20:42 Dose: Not Given Documented By: SISSY Nitroglycerin (Nitroglycerin 0.4 Mg Sl Tab) 0.4 mg SL NOW ONE Stop: 12/22/23 20:42 Last Admin: 12/22/23 20:43 Dose: 0.4 mg Documented By: SISSY Nitroglycerin (Nitroglycerin 0.4 Mg Sl Tab) 0.4 mg SL NOW ONE Stop: 12/22/23 20:52 Last Admin: 12/22/23 20:52 Dose: 0.4 mg Documented By: SISSY Vital Signs Vital signs: Vital Signs - 8 hr 12/22/23 21:45 12/22/23 21:45 12/22/23 21:48 Pulse Rate 87 Respiratory Rate 25 H Blood Pressure 157/75 H 151/66 H Pulse Oximetry 95 Oxygen Delivery Method Oxygen Flow Rate 12/22/23 21:48 12/22/23 21:50 12/22/23 21:51 Pulse Rate 84 85 Respiratory Rate 31 H 29 H Blood Pressure 145/65 H Pulse Oximetry 94 94 Oxygen Delivery Method Oxygen Flow Rate 12/22/23 21:51 12/22/23 21:54 12/22/23 21:54 Pulse Rate 85 85 82 Respiratory Rate 30 H 29 H Blood Pressure 140/64 Pulse Oximetry 94 94 Oxygen Delivery Method Oxygen Flow Rate 12/22/23 21:54 12/22/23 21:57 12/22/23 21:57 Pulse Rate 90 Respiratory Rate 29 H Blood Pressure 140/64 134/63 Pulse Oximetry 93 Oxygen Delivery Method Oxygen Flow Rate 12/22/23 22:00 12/22/23 22:00 12/22/23 22:03 Pulse Rate 91 H 91 H Respiratory Rate 34 H 35 H Blood Pressure 143/66 H Pulse Oximetry 93 92 Oxygen Delivery Method Oxygen Flow Rate 12/22/23 22:03 12/22/23 22:05 12/22/23 22:06 Pulse Rate 92 H Respiratory Rate 33 H Blood Pressure 149/69 H 147/70 H Pulse Oximetry 92 Oxygen Delivery Method Room Air Oxygen Flow Rate 12/22/23 22:06 12/22/23 22:09 12/22/23 22:09 Pulse Rate 92 H 93 H Respiratory Rate 25 H 31 H Blood Pressure 132/60 Pulse Oximetry 92 92 Oxygen Delivery Method Oxygen Flow Rate 12/22/23 22:11 12/22/23 22:12 12/22/23 22:12 Pulse Rate 93 H 90 Respiratory Rate 28 H Blood Pressure 134/63 134/63 Pulse Oximetry 92 Oxygen Delivery Method Room Air Oxygen Flow Rate 12/22/23 22:12 12/22/23 22:15 12/22/23 22:15 Pulse Rate 92 H 90 Respiratory Rate 34 H 27 H Blood Pressure 133/62 Pulse Oximetry 93 93 Oxygen Delivery Method Nasal Cannula Oxygen Flow Rate 2 12/22/23 22:18 12/22/23 22:18 12/22/23 22:21 Pulse Rate 87 Respiratory Rate 33 H Blood Pressure 142/65 H 133/56 L Pulse Oximetry 92 Oxygen Delivery Method Oxygen Flow Rate 12/22/23 22:21 12/22/23 22:24 12/22/23 22:24 Pulse Rate 88 84 Respiratory Rate 31 H 30 H Blood Pressure 143/65 H Pulse Oximetry 93 93 Oxygen Delivery Method Oxygen Flow Rate 12/22/23 22:27 12/22/23 22:27 12/22/23 22:30 Pulse Rate 84 Respiratory Rate 26 H Blood Pressure 141/65 H 133/60 Pulse Oximetry 93 Oxygen Delivery Method Oxygen Flow Rate 12/22/23 22:30 12/22/23 22:32 12/22/23 22:33 Pulse Rate 78 80 Respiratory Rate 26 H 29 H Blood Pressure 129/62 Pulse Oximetry 94 94 Oxygen Delivery Method Nasal Cannula Oxygen Flow Rate 2 12/22/23 22:33 12/22/23 22:36 12/22/23 22:36 Pulse Rate 85 80 Respiratory Rate 25 H 32 H Blood Pressure 125/60 Pulse Oximetry 94 94 Oxygen Delivery Method Oxygen Flow Rate 12/22/23 22:39 12/22/23 22:39 12/22/23 22:42 Pulse Rate 81 Respiratory Rate 26 H Blood Pressure 140/68 126/61 Pulse Oximetry 94 Oxygen Delivery Method Oxygen Flow Rate 12/22/23 22:42 12/22/23 22:45 12/22/23 22:45 Pulse Rate 76 83 Respiratory Rate 23 41 H Blood Pressure 118/62 Pulse Oximetry 94 94 Oxygen Delivery Method Oxygen Flow Rate 12/22/23 22:48 12/22/23 22:48 12/22/23 22:51 Pulse Rate 83 89 Respiratory Rate 29 H 30 H Blood Pressure 133/63 Pulse Oximetry 94 96 Oxygen Delivery Method Oxygen Flow Rate 12/22/23 22:51 12/22/23 22:54 12/22/23 22:54 Pulse Rate 88 Respiratory Rate 29 H Blood Pressure 144/66 H 137/64 Pulse Oximetry 96 Oxygen Delivery Method Oxygen Flow Rate 12/22/23 22:57 12/22/23 22:57 12/22/23 23:00 Pulse Rate 89 Respiratory Rate 35 H Blood Pressure 136/63 132/57 L Pulse Oximetry 96 Oxygen Delivery Method Oxygen Flow Rate 12/22/23 23:00 12/22/23 23:03 12/22/23 23:03 Pulse Rate 83 85 Respiratory Rate 33 H 38 H Blood Pressure 130/60 Pulse Oximetry 96 96 Oxygen Delivery Method Oxygen Flow Rate 12/22/23 23:06 12/22/23 23:06 12/22/23 23:09 Pulse Rate 82 Respiratory Rate 31 H Blood Pressure 138/63 134/55 L Pulse Oximetry 96 Oxygen Delivery Method Oxygen Flow Rate 12/22/23 23:09 12/22/23 23:12 12/22/23 23:12 Pulse Rate 77 82 Respiratory Rate 31 H 22 Blood Pressure 138/63 Pulse Oximetry 96 96 Oxygen Delivery Method Oxygen Flow Rate 12/22/23 23:15 12/22/23 23:15 12/22/23 23:18 Pulse Rate 80 80 Respiratory Rate 29 H 26 H Blood Pressure 137/62 Pulse Oximetry 96 95 Oxygen Delivery Method Oxygen Flow Rate 12/22/23 23:18 12/22/23 23:21 12/22/23 23:21 Pulse Rate 79 Respiratory Rate 32 H Blood Pressure 129/62 133/66 Pulse Oximetry 95 Oxygen Delivery Method Oxygen Flow Rate 12/22/23 23:24 12/22/23 23:24 12/22/23 23:27 Pulse Rate 80 Respiratory Rate 32 H Blood Pressure 126/60 135/63 Pulse Oximetry 95 Oxygen Delivery Method Oxygen Flow Rate 12/22/23 23:27 12/22/23 23:30 12/22/23 23:30 Pulse Rate 81 80 Respiratory Rate 35 H 23 Blood Pressure 126/60 Pulse Oximetry 96 96 Oxygen Delivery Method Oxygen Flow Rate 12/22/23 23:33 12/22/23 23:33 12/22/23 23:36 Pulse Rate 82 Respiratory Rate 36 H Blood Pressure 128/61 124/58 L Pulse Oximetry 97 Oxygen Delivery Method Oxygen Flow Rate 12/22/23 23:36 12/22/23 23:39 12/22/23 23:39 Pulse Rate 83 83 Respiratory Rate 29 H 25 H Blood Pressure 128/60 Pulse Oximetry 97 96 Oxygen Delivery Method Room Air Oxygen Flow Rate 12/22/23 23:48 12/22/23 23:48 12/22/23 23:51 Pulse Rate 87 Respiratory Rate 34 H Blood Pressure 148/65 H 136/64 Pulse Oximetry 97 Oxygen Delivery Method Oxygen Flow Rate 12/22/23 23:51 12/22/23 23:54 12/22/23 23:54 Pulse Rate 86 84 Respiratory Rate 32 H 31 H Blood Pressure 121/57 L Pulse Oximetry 96 96 Oxygen Delivery Method Oxygen Flow Rate 12/22/23 23:57 12/22/23 23:57 12/23/23 00:00 Pulse Rate 86 Respiratory Rate 35 H Blood Pressure 131/60 128/60 Pulse Oximetry 96 Oxygen Delivery Method Oxygen Flow Rate 12/23/23 00:00 12/23/23 00:03 12/23/23 00:03 Pulse Rate 82 82 Respiratory Rate 32 H 26 H Blood Pressure 132/62 Pulse Oximetry 96 96 Oxygen Delivery Method Oxygen Flow Rate 12/23/23 00:06 12/23/23 00:06 12/23/23 00:09 Pulse Rate 85 Respiratory Rate 22 Blood Pressure 140/65 134/60 Pulse Oximetry 97 Oxygen Delivery Method Oxygen Flow Rate 12/23/23 00:09 12/23/23 00:12 12/23/23 00:12 Pulse Rate 82 84 Respiratory Rate 30 H 37 H Blood Pressure 130/60 Pulse Oximetry 95 96 Oxygen Delivery Method Oxygen Flow Rate 12/23/23 00:15 12/23/23 00:15 12/23/23 00:18 Pulse Rate 88 Respiratory Rate 27 H Blood Pressure 116/55 L 134/63 Pulse Oximetry 95 Oxygen Delivery Method Oxygen Flow Rate 12/23/23 00:18 12/23/23 00:21 12/23/23 00:21 Pulse Rate 87 81 Respiratory Rate 31 H 33 H Blood Pressure 130/61 Pulse Oximetry 96 96 Oxygen Delivery Method Oxygen Flow Rate 12/23/23 00:24 12/23/23 00:24 12/23/23 00:27 Pulse Rate 87 87 Respiratory Rate 31 H 42 H Blood Pressure 141/65 H Pulse Oximetry 96 96 Oxygen Delivery Method Oxygen Flow Rate 12/23/23 00:27 12/23/23 00:28 12/23/23 00:28 Pulse Rate 83 Respiratory Rate 35 H Blood Pressure 124/58 L 124/58 L Pulse Oximetry 96 Oxygen Delivery Method Oxygen Flow Rate 12/23/23 00:30 12/23/23 00:30 12/23/23 00:30 Pulse Rate 81 Respiratory Rate 34 H Blood Pressure 123/60 123/60 Pulse Oximetry 95 Oxygen Delivery Method Oxygen Flow Rate 12/23/23 00:40 12/23/23 00:40 12/23/23 00:41 Pulse Rate 82 82 Respiratory Rate 32 H 31 H Blood Pressure 121/80 Pulse Oximetry 95 95 Oxygen Delivery Method Oxygen Flow Rate 12/23/23 00:41 12/23/23 00:42 12/23/23 00:42 Pulse Rate 83 Respiratory Rate 23 Blood Pressure 128/65 131/62 Pulse Oximetry 95 Oxygen Delivery Method Oxygen Flow Rate 12/23/23 00:45 12/23/23 00:45 12/23/23 01:00 Pulse Rate 83 Respiratory Rate 29 H Blood Pressure 137/64 137/65 Pulse Oximetry 95 Oxygen Delivery Method Oxygen Flow Rate 12/23/23 01:00 12/23/23 01:15 12/23/23 01:15 Pulse Rate 80 84 Respiratory Rate 35 H 31 H Blood Pressure 145/69 H Pulse Oximetry 94 93 Oxygen Delivery Method Oxygen Flow Rate 12/23/23 01:30 12/23/23 01:30 12/23/23 01:45 Pulse Rate 83 81 Respiratory Rate 35 H 27 H Blood Pressure 153/75 H Pulse Oximetry 92 92 Oxygen Delivery Method Oxygen Flow Rate 12/23/23 01:45 12/23/23 02:00 12/23/23 02:06 Pulse Rate 86 72 Respiratory Rate 32 H 26 H Blood Pressure 144/68 H Pulse Oximetry 92 Oxygen Delivery Method Oxygen Flow Rate 12/23/23 02:06 12/23/23 02:15 12/23/23 02:15 Pulse Rate 76 Respiratory Rate 28 H Blood Pressure 134/63 129/61 Pulse Oximetry 95 Oxygen Delivery Method Oxygen Flow Rate 12/23/23 02:30 12/23/23 02:30 12/23/23 03:00 Pulse Rate 77 Respiratory Rate 27 H Blood Pressure 129/63 143/67 H Pulse Oximetry 95 Oxygen Delivery Method Nasal Cannula Oxygen Flow Rate 2 12/23/23 03:00 12/23/23 03:15 12/23/23 03:15 Pulse Rate 73 73 Respiratory Rate 30 H 24 Blood Pressure 134/62 Pulse Oximetry Oxygen Delivery Method Oxygen Flow Rate 12/23/23 03:30 12/23/23 03:30 12/23/23 03:45 Pulse Rate 79 76 Respiratory Rate 23 25 H Blood Pressure 155/85 H Pulse Oximetry Oxygen Delivery Method Oxygen Flow Rate 12/23/23 03:45 12/23/23 04:00 12/23/23 04:00 Pulse Rate 78 Respiratory Rate 24 Blood Pressure 152/82 H 155/84 H Pulse Oximetry Oxygen Delivery Method Oxygen Flow Rate 12/23/23 04:15 12/23/23 04:15 12/23/23 04:30 Pulse Rate 85 80 Respiratory Rate 30 H 20 Blood Pressure 158/86 H Pulse Oximetry Oxygen Delivery Method Oxygen Flow Rate 12/23/23 04:30 12/23/23 04:45 12/23/23 04:45 Pulse Rate 81 Respiratory Rate 31 H Blood Pressure 155/83 H 149/72 H Pulse Oximetry Oxygen Delivery Method Oxygen Flow Rate 12/23/23 05:00 12/23/23 05:00 12/23/23 05:16 Pulse Rate 79 87 Respiratory Rate 30 H 39 H Blood Pressure 125/60 Pulse Oximetry 97 95 Oxygen Delivery Method Oxygen Flow Rate 12/23/23 05:16 Pulse Rate Respiratory Rate Blood Pressure 141/68 H Pulse Oximetry Oxygen Delivery Method Oxygen Flow Rate MDM - Chest Pain Differential Diagnosis Differential diagnosis: Likely unstable angina pectoris, chest pain and other Lab Data Attestation: I reviewed the patient's lab results. 12/23/23 02:59 12/22/23 20:20 Labs: Lab Results 12/22/23 12/22/23 12/22/23 Range/Units 20:20 20:40 23:30 WBC 7.9 (4.5-11.0) X10^3/uL RBC 5.59 (4.5-5.9) X10^6/uL Hgb 15.0 (13.5-17.5) g/dL Hct 46.1 (41-53) % MCV 82.6 (80-100) fL MCH 26.8 (26-34) PG MCHC 32.4 (30-36) % RDW 14.7 (11.6-14.8) % Plt Count 169 (150-400) X10^3/uL Neut % (Auto) 59.9 (50-75) % Lymph % (Auto) 32.2 (25-40) % Larue % (Auto) 6.5 (3-14) % Eos % (Auto) 0.3 L (2-4) % Baso % (Auto) 1.1 (0-2) % Neut # (Auto) 4700 (6221-1304) /uL Lymph # (Auto) 2500 (0360-8310) /uL Larue # (Auto) 500 (0-900) /uL Eos # (Auto) 0 (0-450) /uL Baso # (Auto) 100 (0-100) /uL PT 14.0 H (9.4-12.5) SECONDS INR 1.2 (0.9-1.3) APTT 36 (25.1-36.5) SECONDS Sodium 143 (137-145) mmol/L Potassium 3.8 (3.4-5.1) mmol/L Chloride 109 H (98-107) mmol/L Carbon Dioxide 26 (22-32) mmol/L BUN 12 (9-20) mg/dL Creatinine 1.20 (0.66-1.25) mg/dL Estimated GFR > 60 (>60) mL/min BUN/Creatinine Ratio 10.0 (6-22) Glucose 136 H (80-110) mg/dL Calcium 9.2 (8.4-10.2) mg/dL Magnesium 1.8 (1.6-2.3) mg/dL Total Bilirubin 1.0 (0.2-1.3) mg/dL AST 41 (17-59) IU/L ALT 44 (<50) IU/L Alkaline Phosphatase 89 (38-126) U/L Total Creatine Kinase 95 (55-170) U/L Troponin I 0.093 H 1.950 H* (0.01-0.034) ng/mL NT-Pro-B Natriuret Pep 932 H (<125) pg/mL Total Protein 8.3 H (6.3-8.2) g/dL Albumin 4.6 (3.5-5.0) g/dL Globulin 3.7 (1.7-4.1) g/dL Albumin/Globulin Ratio 1.2 (1.0-2.8) Lipase 94 (23-300) U/L SARS-CoV-2 (PCR) Negative (Negative) Influenza A (RT-PCR) Flu a negative (NEGATIVE) Influenza B (RT-PCR) Flu b negative (NEGATIVE) RSV (PCR) Negative (Negative) 12/23/23 Range/Units 02:59 WBC (4.5-11.0) X10^3/uL RBC (4.5-5.9) X10^6/uL Hgb 13.7 (13.5-17.5) g/dL Hct 41.6 (41-53) % MCV (80-100) fL MCH (26-34) PG MCHC (30-36) % RDW (11.6-14.8) % Plt Count 170 (150-400) X10^3/uL Neut % (Auto) (50-75) % Lymph % (Auto) (25-40) % Larue % (Auto) (3-14) % Eos % (Auto) (2-4) % Baso % (Auto) (0-2) % Neut # (Auto) (6963-0948) /uL Lymph # (Auto) (1044-8521) /uL Larue # (Auto) (0-900) /uL Eos # (Auto) (0-450) /uL Baso # (Auto) (0-100) /uL PT (9.4-12.5) SECONDS INR (0.9-1.3) APTT 44 H D (25.1-36.5) SECONDS Sodium (137-145) mmol/L Potassium (3.4-5.1) mmol/L Chloride (98-107) mmol/L Carbon Dioxide (22-32) mmol/L BUN (9-20) mg/dL Creatinine (0.66-1.25) mg/dL Estimated GFR (>60) mL/min BUN/Creatinine Ratio (6-22) Glucose (80-110) mg/dL Calcium (8.4-10.2) mg/dL Magnesium (1.6-2.3) mg/dL Total Bilirubin (0.2-1.3) mg/dL AST (17-59) IU/L ALT (<50) IU/L Alkaline Phosphatase (38-126) U/L Total Creatine Kinase (55-170) U/L Troponin I (0.01-0.034) ng/mL NT-Pro-B Natriuret Pep (<125) pg/mL Total Protein (6.3-8.2) g/dL Albumin (3.5-5.0) g/dL Globulin (1.7-4.1) g/dL Albumin/Globulin Ratio (1.0-2.8) Lipase (23-300) U/L SARS-CoV-2 (PCR) (Negative) Influenza A (RT-PCR) (NEGATIVE) Influenza B (RT-PCR) (NEGATIVE) RSV (PCR) (Negative) Imaging Data Chest x-ray: My Impression: Portable study, no obvious widened mediastinum, no pleural capping, no enlarged heart, no pneumothorax, no infiltrates obvious Radiologist's Impression: [address] [address] XRay Report Signed Patient: Wilfredo Magallanes MR#: [id number] : 1955 Acct:[id number] Age/Sex: 68 / M Date of Service: 12/22/23 Loc: ED Accession Number: [id number] Procedure: XR chest 1V Ordering Provider: Israel Sanchez MD PROCEDURE: XR CHEST 1V INDICATIONS: chest pain TECHNIQUE: One view of the chest was acquired. COMPARISON: [facility], CR, XR CHEST 1V, 11/12/2023, 5:39. FINDINGS: Surgical changes and devices: None. Lungs and pleura: There is pulmonary vascular congestion. Chronic increased interstitial lung markings throughout bilateral lung chung are noted. No definite focal infiltrate. No pleural effusions or pneumothorax. Mediastinum: Mediastinal contours appear normal. Heart size is enlarged. Bones and chest wall: No suspicious bony lesions. Overlying soft tissues appear unremarkable. IMPRESSION: Cardiomegaly and mild congestion. Increased interstitial lung markings which may represent chronic interstitial lung disease versus mild pulmonary edema. No focal infiltrate, pleural effusion or pneumothorax. Dictated by: Dereck Zarate M.D. on 12/22/2023 at 20:57 Approved by: Dereck Zarate M.D. on 12/22/2023 at 20:58 ECG Data Attestation: I personally reviewed and interpreted this ECG as follows: Interpretation: 2019, Normal sinus rhythm with rate of 97, some ST segment elevation anterior leads but unchanged from prior study, ST segment depression changes lateral leads, also were present on prior study but seemed to worse on study today, with some downward sloping component lateral leads. Concerning for possible ischemia. 2101, normal sinus rhythm, ST segment depression lateral leads decreased from initial study, same ST segment elevation anterior leads from prior old studies 2128, normal sinus rhythm, same anterior ST segment depression changes, unchanged from 2nd EKG MDM Narrative Medical decision making narrative: 68-year-old male with history of smoking and peripheral artery disease and hypertension, no known prior coronary artery disease, presents with 1 hour duration of left and right anterior chest pain, EKG shows some septal ST segment elevation similar to prior study, shows some lateral precordial ST segment depressions that are more prominent deeper than in prior study, concerning for ischemia. Oral aspirin given. Trial of nitroglycerin, IV morphine/Zofran. We will repeat serial EKGs to look for dynamic changes, possible transfer [place] response to serial nitroglycerin, still having significant chest pain, IV morphine still having pain, transient sinus bradycardia, transcutaneous pacer pads placed. IV heparin, IV nitroglycerin. We will contact out of town collection clerk Dr. Rabago at [facility]. Troponin 0.93 indeterminate range and 1 hour duration of symptoms 2119, case discussed with Dr. Rabago Cardiology, he will contact ED, possible transfer 2139, call back from cardiology Dr. Rabago, who communicated with [facility] ED physician Dr. 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 We will fax forward EKGs to ED [facility]. Patient agreeable 2154, call back from [facility] cardiology Dr. Rabago, they had two code blues on the floor there, they no longer have critical care bed, advised alternate transfer facility. Pain pain free now here on Ntg and Heparin. We will attempt transfer to other cardiac catheterization lab facility. 2229, [facility] contacted, awaiting callback 2339, case discussed with [facility] intake, currently waitlisted at [facility], [place] 0024, repeat troponin 1.9 noted, consistent with NSTEMI, still pain-free on nitroglycerin/heparin infusions, awaiting transfer 54, case discussed with [facility] out of town collection clerk Dr Lynch, accepts for transfer, patient on nitroglycerin drip, admit to environmental field office manager service 0, case discussed with [place] environmental field office manager Dr. Mccall, accepts patient for transfer, awaiting availability of bed 0700, bed available, transport by EMS Critical Care Time Critical Care Time Critical Care Time: Yes Total Critical Care Time: 35 Attestation: The high probability of a clinically significant, sudden or life threatening deterioration of the [cardiopulmonary] system(s) required my full and direct attention, intervention and personal management. The aggregate critical care time was [35] minutes. This time is in addition to time spent performing reported procedures but includes the following: [x] Data Review and interpretation [x] Patient assessment and monitoring of vital signs [x] Documentation [x] Medication orders and management Discharge Plan Departure Patient Disposition: [facility] Clinical Impression: Non-ST elevated myocardial infarction, Chest pain Prescriptions: No Action aspirin 81 MG tablet,delayed release (DR/EC) 81 mg PO QDAY Qty: 0 fluticasone propionate [Flonase Allergy Relief] 9.9 ML spray,suspension 1 - 2 spray Intranasal QDAY Qty: 1 0RF prednisone 50 MG tablet 50 mg PO [facility]CC 3 Days Qty: 0 0RF oxycodone 5 mg tablet 5 mg PO BID PRN (Reason: pain) Qty: 15 0RF baclofen 20 mg tablet 20 mg PO TID Qty: 20 0RF cyclobenzaprine 5 mg tablet 5 mg PO TID PRN (Reason: muscle spasm) Qty: 10 0RF oxycodone-acetaminophen [Percocet] 5-325 mg tablet 1 tab PO Q4-6H PRN (Reason: pain) Qty: 10 0RF Rx Instructions: Take 1-2 tabs every 4-6 hours prn back pain. Stop Tramadol. Do not drive prednisone 20 mg tablet 40 mg PO DAILY Qty: 10 0RF colchicine 0.6 mg capsule 0.6 mg PO DAILY Qty: 3 0RF methylprednisolone [Medrol (Tad)] 4 mg tablets,dose pack See Rx Instructions PO .COMPLEX Qty: 21 0RF Rx Instructions: orally per package directions Referrals: Sherie Hackett MD [Primary Care Provider] -
[2023-12-22] MEDS: ASPIRIN 81 MG CHEW TAB 324 MG PO (20:30)
[2023-12-22] MEDS: NITROGLYCERIN 0.4 MG SL TAB SL ×3 (20:34→20:52)
[2023-12-22 20:37] LABS: Add Manual Diff / Slide Review NO; Basophils Absolute Auto 100 /uL (0-100); Basophils Percent Auto 1.1 % (0-2); Eosinophils Absolute Auto 0 /uL (0-450); Eosinophils Percent Auto 0.3 % (2-4); Hematocrit 46.1 % (41-53); Lymphocytes Absolute Auto 2500 /uL (1100-4500); Lymphocytes Percent Auto 32.2 % (25-40); Mean Corpuscular HGB Conc 32.4 % (30-36); Mean Corpuscular Hemoglobin 26.8 PG (26-34); Mean Corpuscular Volume 82.6 fL (80-100); Monocytes Absolute Auto 500 /uL (0-900); Monocytes Percent Auto 6.5 % (3-14); Neutrophils Absolute Auto 4700 /uL (1500-7000); Neutrophils Percent Auto 59.9 % (50-75); Platelet Count 169 X10^3/uL (150-400); Red Blood Cell Count 5.59 X10^6/uL (4.5-5.9); Red Cell Distribution Width 14.7 % (11.6-14.8); White Blood Cell Count 7.9 X10^3/uL (4.5-11.0)
[2023-12-22 20:44] LABS: INR 1.2 (0.9-1.3)
[2023-12-22 20:46] LABS: PTT Partial Thromboplastin Tim 36 SECONDS (25.1-36.5)
[2023-12-22] MEDS: SODIUM CHLORIDE 0.9% 500 ML 1000 ML IV (20:46)
[2023-12-22 20:48] LABS: Alanine Aminotransferase 44 IU/L (<50); Albumin 4.6 g/dL (3.5-5.0); Albumin Globulin Ratio 1.2 (1.0-2.8); Alkaline Phosphatase 89 U/L (38-126); Aspartate Aminotransferase 41 IU/L (17-59); Blood Urea Nitrogen 12 mg/dL (9-20); Calcium 9.2 mg/dL (8.4-10.2); Carbon Dioxide 26 mmol/L (22-32); Chloride 109 mmol/L (98-107); Creatine Kinase 95 U/L (55-170); Estimated Glomerular Filt Rate > 60 mL/min (>60); Globulin 3.7 g/dL (1.7-4.1); Glucose 136 mg/dL (80-110); HEMOLYSIS < 15 (0-50); Lipase 94 U/L (23-300); Magnesium 1.8 mg/dL (1.6-2.3); Potassium 3.8 mmol/L (3.4-5.1); Sodium 143 mmol/L (137-145); Total Protein 8.3 g/dL (6.3-8.2)
[2023-12-22] MEDS: MORPHINE 2 MG/ML INJ 4 MG (20:58)
[2023-12-22 21:00] LABS: NT-proBNP (BNP-Adult 18+) 932 pg/mL (<125); Troponin I 0.093 ng/mL (0.01-0.034)
--- NOTE | 2023-12-22 21:02 | EKG_ITS ---
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
[2023-12-22] MEDS: HEPARIN 5,000 UNIT/ML VIAL 5000 UNIT IV (21:07)
[2023-12-22] MEDS: HEPARIN DRIP 25,000 UNIT/500 ML IV.SOLN 20 UNIT IV (21:11)
--- NOTE | 2023-12-22 21:11 | EKG_ITS ---
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
[2023-12-22] MEDS: NITROGLYCERIN 50 MG/250 ML INFUS..BTL IV ×2 (21:13→21:54)
[2023-12-22 21:26] LABS: COVID-19 CEPHEID 4-PLEX PCR Negative (Negative); Influenza A - CEPHEID Flu A NEGATIVE (NEGATIVE); Influenza B - CEPHEID Flu B NEGATIVE (NEGATIVE); Respiratory Syncytial Virus Negative (Negative)
--- NOTE | 2023-12-22 21:29 | EKG_ITS ---
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
[2023-12-22] MEDS: NITROGLYCERIN 50 MG/250 ML INFUS..BTL 6 MG IV (22:12)
[2023-12-23] VITALS (34 sets, daily range): BP systolic 116–158; BP diastolic 55–86; PULSE 72–88; RESP 20–42; O2SAT 92–97
--- NOTE | 2023-12-23 03:04 | PC.NURSE ---
Daniel YEH ok with continuing nitro drip as seen in AUG.
[2023-12-23 03:10] LABS: Hematocrit 41.6 % (41-53); Hemoglobin 13.7 g/dL (13.5-17.5); Platelet Count 170 X10^3/uL (150-400)
[2023-12-23 03:21] LABS: PTT Partial Thromboplastin Tim 44 SECONDS (25.1-36.5)
[2023-12-23] MEDS: HEPARIN 5,000 UNIT/ML VIAL 2500 UNIT IV (05:03)
== END 2023-12-23 05:15 | disposition short-term general hospital (02) ==
PROVIDERS: Emergency Provider Emergency Medicine; Family Provider Family Medicine; PCP Family Medicine
DX: I21.4 Non-ST elevation (NSTEMI) myocardial infarction (principal); R07.9 Chest pain, unspecified; R00.1 Bradycardia, unspecified; Z11.52 Encounter for screening for COVID-19
CPT/HCPCS: 0241U; 36415; 71045; 80053; 82550; 83690; 83735; 83880; 84484; 85014; 85018; 85025; 85049; 85610; 85730; 93005; 96365; 96366; 96368; 96375; 96376; 99285; 99291; J1644; J2270

== ENCOUNTER 2024-07-24 14:09 | Emergency (ER) | payer MEDICARE, OTHER, SELFPAY ==
[2024-07-24] VITALS (16 sets, daily range): BP systolic 159–192; BP diastolic 70–111; PULSE 74–109; RESP 18–34; TEMP 36.7; O2SAT 89–96; BMI 34.0
--- NOTE | 2024-07-24 14:21 | EKG_ITS ---
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
--- NOTE | 2024-07-24 14:29 | DI.RAD.S_ITS ---
PROCEDURE: XR CHEST 1V INDICATIONS: chest pain TECHNIQUE: One view of the chest was acquired. COMPARISON: [facility], CR, XR CHEST 1V, 12/22/2023, 20:32. FINDINGS: Surgical changes and devices: Median sternotomy wires are seen. Lungs and pleura: There is pulmonary vascular congestion and pulmonary edema. No definite focal infiltrate. No pleural effusions or pneumothorax. Mediastinum: Mediastinal contours appear normal. Heart size is enlarged. Bones and chest wall: No suspicious bony lesions. Overlying soft tissues appear unremarkable. IMPRESSION: Cardiomegaly and pulmonary vascular congestion with pulmonary edema suggestive of CHF. No definite focal infiltrate. No pleural effusion or pneumothorax. Dictated by: Dereck Zarate M.D. on 07/24/2024 at 14:56 Approved by: Dereck Zarate M.D. on 07/24/2024 at 14:56
[2024-07-24 14:44] LABS: Add Manual Diff / Slide Review NO; Basophils Absolute Auto 100 /uL (0-100); Basophils Percent Auto 0.6 % (0-2); Eosinophils Absolute Auto 0 /uL (0-450); Eosinophils Percent Auto 0.3 % (2-4); Hematocrit 48.8 % (41-53); Hemoglobin 15.5 g/dL (13.5-17.5); Lymphocytes Absolute Auto 1900 /uL (1100-4500); Lymphocytes Percent Auto 19.5 % (25-40); Mean Corpuscular HGB Conc 31.9 % (30-36); Mean Corpuscular Hemoglobin 26.2 PG (26-34); Mean Corpuscular Volume 82.3 fL (80-100); Monocytes Absolute Auto 600 /uL (0-900); Monocytes Percent Auto 6.4 % (3-14); Neutrophils Absolute Auto 7100 /uL (1500-7000); Neutrophils Percent Auto 73.2 % (50-75); Platelet Count 183 X10^3/uL (150-400); Red Blood Cell Count 5.93 X10^6/uL (4.5-5.9); Red Cell Distribution Width 16.4 % (11.6-14.8); White Blood Cell Count 9.7 X10^3/uL (4.5-11.0)
[2024-07-24 14:49] LABS: INR 1.5 (0.9-1.3); Prothrombin Time 16.4 SECONDS (9.4-12.5)
[2024-07-24 14:51] LABS: PTT Partial Thromboplastin Tim 40 SECONDS (25.1-36.5)
[2024-07-24 14:52] LABS: Alanine Aminotransferase 23 IU/L (<50); Albumin 4.6 g/dL (3.5-5.0); Albumin Globulin Ratio 1.1 (1.0-2.8); Alkaline Phosphatase 88 U/L (38-126); BUN Creatinine Ratio 17.7 (6-22); Bilirubin Total 1.2 mg/dL (0.2-1.3); Blood Urea Nitrogen 14 mg/dL (9-20); Carbon Dioxide 18 mmol/L (22-32); Chloride 110 mmol/L (98-107); Creatine Kinase 80 U/L (55-170); Estimated Glomerular Filt Rate > 60 mL/min (>60); Globulin 4.1 g/dL (1.7-4.1); Glucose 154 mg/dL (80-110); Lipase 105 U/L (23-300); Magnesium 1.9 mg/dL (1.6-2.3); Sodium 140 mmol/L (137-145); Total Protein 8.7 g/dL (6.3-8.2)
[2024-07-24 14:53] LABS: Lactate (Lactic Acid) 1.6 mmol/L (0.7-2.1)
[2024-07-24 14:56] LABS: Aspartate Aminotransferase 51 IU/L (17-59); HEMOLYSIS 149 (0-50); Potassium 4.9 mmol/L (3.4-5.1)
[2024-07-24 15:04] LABS: NT-proBNP (BNP-Adult 18+) 1110 pg/mL (<125); Troponin I 0.018 ng/mL (0.01-0.034)
[2024-07-24] MEDS: ASPIRIN 81 MG CHEW TAB 324 MG PO (15:07)
--- NOTE | 2024-07-24 16:43 | ED_ITS ---
HPI - Chest Pain General Chief Complaint: Chest Pain Stated Complaint: diff breathing Time Seen by Provider: 07/24/24 16:32 Source: patient Mode of arrival: Family Vehicle Limitations: no limitations History of Present Illness HPI narrative: Patient is a 69-year-old male history of CABG x3, smoking COPD, peripheral arterial disease, tobacco use presenting today with chest pain. He reports that he was sitting at home when suddenly he felt pressure like an elephant sitting on his chest. It did not radiate lasted for an hour or 2 and has since dissipated after being in the ED. He had a three-vessel CABG done back in November. He saw a instrument processing tech afterwards but he has not sure who he saw. His surgery was done evidence. Denying shortness of breath. Given aspirin here in the ED Related Data Home Medications Medication Instructions Recorded Confirmed albuterol sulfate 90 mcg/actuation 1 puff inhalation Q4-6H 07/25/24 07/25/24 aerosol inhaler atorvastatin 80 mg tablet 80 mg PO DAILY 07/25/24 07/25/24 empagliflozin 10 mg tablet 10 mg PO DAILY 07/25/24 07/25/24 (Jardiance) furosemide 40 mg tablet 40 mg DAILY 07/25/24 07/25/24 gabapentin 300 mg capsule 600 mg PO TID chronic pain 07/25/24 07/25/24 rivaroxaban 2.5 mg tablet (Xarelto) 2.5 mg DAILY 07/25/24 07/25/24 tamsulosin 0.4 mg capsule 0.4 mg PO DAILY 07/25/24 07/25/24 Allergies Allergy/AdvReac Type Severity Reaction Status Date / Time chloramphenicol Allergy Unknown RASH Verified 12/22/23 20:34 [CHLORAMPHENICOL] ITCHING shellfish derived Allergy Unknown THROAT Verified 12/22/23 20:34 [SHELLFISH DERIVED] CLOSES UP Patient History Medical History Gout HTN (hypertension) Surgical History History of elbow surgery Status post appendectomy Social History household members: spouse Smoking Status: Current every day smoker alcohol intake: current Smoking Status: Current every day smoker tobacco type: cigarettes alcohol intake frequency: holidays/special occasions only Exam Initial Vital Signs Initial Vital Signs: Vital Signs Temperature 98.1 F 07/24/24 14:15 Pulse Rate 109 H 07/24/24 14:15 Respiratory Rate 34 H 07/24/24 14:15 Blood Pressure 192/111 H 07/24/24 14:15 Pulse Oximetry 89 L 07/24/24 14:15 Oxygen Delivery Method Room Air 07/24/24 14:15 GENERAL: Alert sitting up at the edge of bed and in no acute distress. HEENT: Head atraumatic,EOMI, pupils reactive, face symmetric, moist mucous membranes CARDIOVASCULAR: Regular rate and rhythm without murmurs, rubs or gallops. RESPIRATORY: Mild rales at bases no conversational dyspnea no wheezing ABDOMEN: Soft, nontender. Normoactive bowel sounds all 4 quadrants. No guarding or rebound. EXTREMITIES: Normal range of motion, no clubbing or edema. Neurovascularly intact NEUROLOGICAL: Alert and oriented x4.Normal gait and speech. Cranial nerves II through XII grossly intact. SKIN: Warm, dry, no laceration, no petechiae, no rashes or lesions. Course Orders Ordered: Discontinued Medications Aspirin (Aspirin 81 Mg Chew Tab) 324 mg PO NOW ONE Stop: 07/24/24 14:30 Last Admin: 07/24/24 15:07 Dose: 324 mg Documented By: ROMULO Vital Signs Vital signs: Vital Signs - 8 hr 07/24/24 14:15 07/24/24 14:16 07/24/24 14:19 Temperature 98.1 F Pulse Rate 109 H 105 H Respiratory Rate 34 H Blood Pressure 192/111 H 192/111 H Pulse Oximetry 89 L 94 Oxygen Delivery Method Room Air 07/24/24 14:19 07/24/24 14:30 07/24/24 14:30 Temperature Pulse Rate 105 H 93 H Respiratory Rate 32 H 27 H Blood Pressure 185/106 H Pulse Oximetry 90 L 94 Oxygen Delivery Method 07/24/24 14:45 07/24/24 14:45 07/24/24 15:00 Temperature Pulse Rate 84 83 Respiratory Rate 28 H 28 H Blood Pressure 176/83 H Pulse Oximetry 93 95 Oxygen Delivery Method 07/24/24 15:01 07/24/24 15:01 07/24/24 15:30 Temperature Pulse Rate 84 Respiratory Rate 28 H Blood Pressure 172/81 H 160/79 H Pulse Oximetry 95 Oxygen Delivery Method 07/24/24 15:30 07/24/24 16:00 07/24/24 16:00 Temperature Pulse Rate 77 78 Respiratory Rate 24 18 Blood Pressure 178/84 H Pulse Oximetry 96 95 Oxygen Delivery Method 07/24/24 16:30 07/24/24 16:31 07/24/24 16:31 Temperature Pulse Rate 76 77 Respiratory Rate 24 Blood Pressure 174/78 H Pulse Oximetry 95 95 Oxygen Delivery Method 07/24/24 17:00 07/24/24 17:01 07/24/24 17:01 Temperature Pulse Rate 77 76 Respiratory Rate 23 23 Blood Pressure 159/70 H Pulse Oximetry 94 94 Oxygen Delivery Method MDM - Chest Pain Lab Data 07/24/24 14:27 07/24/24 14:27 Labs: Lab Results 07/24/24 07/24/24 Range/Units 14:27 16:52 WBC 9.7 (4.5-11.0) X10^3/uL RBC 5.93 H (4.5-5.9) X10^6/uL Hgb 15.5 (13.5-17.5) g/dL Hct 48.8 (41-53) % MCV 82.3 (80-100) fL MCH 26.2 (26-34) PG MCHC 31.9 (30-36) % RDW 16.4 H (11.6-14.8) % Plt Count 183 (150-400) X10^3/uL Neut % (Auto) 73.2 (50-75) % Lymph % (Auto) 19.5 L (25-40) % [place] % (Auto) 6.4 (3-14) % Eos % (Auto) 0.3 L (2-4) % Baso % (Auto) 0.6 (0-2) % Neut # (Auto) 7100 H (7018-3834) /uL Lymph # (Auto) 1900 (8264-2987) /uL [place] # (Auto) 600 (0-900) /uL Eos # (Auto) 0 (0-450) /uL Baso # (Auto) 100 (0-100) /uL PT 16.4 H (9.4-12.5) SECONDS INR 1.5 H (0.9-1.3) APTT 40 H (25.1-36.5) SECONDS Sodium 140 (137-145) mmol/L Potassium 4.9 (3.4-5.1) mmol/L Chloride 110 H (98-107) mmol/L Carbon Dioxide 18 L (22-32) mmol/L BUN 14 (9-20) mg/dL Creatinine 0.79 (0.66-1.25) mg/dL Estimated GFR > 60 (>60) mL/min BUN/Creatinine Ratio 17.7 (6-22) Glucose 154 H (80-110) mg/dL Lactate 1.6 (0.7-2.1) mmol/L Calcium 9.0 (8.4-10.2) mg/dL Magnesium 1.9 (1.6-2.3) mg/dL Total Bilirubin 1.2 (0.2-1.3) mg/dL AST 51 (17-59) IU/L ALT 23 (<50) IU/L Alkaline Phosphatase 88 (38-126) U/L Total Creatine Kinase 80 (55-170) U/L Troponin I 0.018 0.027 (0.01-0.034) ng/mL NT-Pro-B Natriuret Pep 1110 H (<125) pg/mL Total Protein 8.7 H (6.3-8.2) g/dL Albumin 4.6 (3.5-5.0) g/dL Globulin 4.1 (1.7-4.1) g/dL Albumin/Globulin Ratio 1.1 (1.0-2.8) Lipase 105 (23-300) U/L Imaging Data Chest x-ray: Radiologist's Impression: PROCEDURE: XR CHEST 1V INDICATIONS: chest pain TECHNIQUE: One view of the chest was acquired. COMPARISON: [facility], CR, XR CHEST 1V, 12/22/2023, 20:32. FINDINGS: Surgical changes and devices: Median sternotomy wires are seen. Lungs and pleura: There is pulmonary vascular congestion and pulmonary edema. No definite focal infiltrate. No pleural effusions or pneumothorax. Mediastinum: Mediastinal contours appear normal. Heart size is enlarged. Bones and chest wall: No suspicious bony lesions. Overlying soft tissues appear unremarkable. IMPRESSION: Cardiomegaly and pulmonary vascular congestion with pulmonary edema suggestive of CHF. No definite focal infiltrate. No pleural effusion or pneumothorax. Dictated by: Dereck Zarate M.D. on 07/24/2024 at 14:56 ECG Data Attestation: I personally reviewed and interpreted this ECG as follows: Prior ECG tracings: available for review Interpretation: Normal sinus rhythm rate 106 [place] interval [address] depression noted in lateral leads no real ST elevation T-wave inversion noted in lead 3 Repeat EKGs sinus rhythm persistent ST depression which is similar to prior EKGs MDM Narrative Medical decision making narrative: MDM CC: Chest pain Complicating co-morbidities: Coronary artery disease CABG x3, tobacco abuse peripheral arterial disease Medical records reviewed: Previous ED records Differential considered: Acute coronary syndrome CHF COPD Exam documented above, pertinent findings include: Alert 69-year-old male appears in no acute distress lung sounds are slightly coarse but no conversational dyspnea Lab Test results independently reviewed as above. Pertinent findings: CBC no leukocytosis no anemia CMP does show bicarb of 18 chloride of 110 creatinine 0.79 Troponin 0.018-->0.027 BNP 1110 previously 932 Independently reviewed EKG as above Sinus rhythm he does have some ST depression looks similar to previous EKGs is when he had his CABG no EKGs to compare after his CABG Imaging studies independently reviewed: Cardiomegaly vascular congestion Consultations: 18:20 Dr. Russell Tai cardiology ok to follow up out patient Treatments: None Re-evaluations: Patient has been monitored in the ED he has no recurrence of chest pain he has no shortness of breath Discussion: 69-year-old male who has peripheral vascular disease coronary artery disease CHF COPD presenting today with chest heaviness. Chest heaviness lasted for about an hour and then dissipated. He is 2- troponins. EKG does show some abnormality unclear if this is new but no EKGs after his CABG. He has no longer having chest pain he has not having shortness of breath. There is some mild suggestion of CHF on x-ray. BNP is slightly elevated at 1100 he was previously 900 but not having shortness of breath at this time. Cardiology was consulted reports that patient is safe to follow up as an outpatient. Patient does not know which cardiology group he sees he thinks that it might be with [place] he knows he comes to [facility]. He had his CABG done at [place] with Dr. Ortega. Both patient and feel comfortable they are anxious to go. Understand that they should return if symptoms return Discharge Plan Departure Patient Disposition: Home Clinical Impression: Chest pain Instructions: DI for Chest Pain Activity Restrictions/Additional Instructions: *You have been diagnosed with chest pain *What to do: At this time you must call [place] cardiology tomorrow to schedule a follow-up appointment Please stop smoking *Continue to take medications as directed Take all medications as directed *Follow up with your primary care provider in 2-3 days or call [phone] *Return to ER if you should have increasing chest heaviness pressure pain shortness of breath or any new, worsening or concerning symptoms Prescriptions: No Action furosemide 40 mg tablet 40 mg DAILY atorvastatin 80 mg tablet 80 mg PO DAILY tamsulosin 0.4 mg capsule 0.4 mg PO DAILY gabapentin 300 mg capsule 600 mg PO TID Rx Instructions: Recently increased to TID albuterol sulfate 90 mcg/actuation HFA aerosol inhaler 1 puff INHALATION Q4-6H Jardiance 10 mg tablet 10 mg PO DAILY Xarelto 2.5 mg tablet 2.5 mg DAILY Patient Comments: [NO ORIGINAL SIG] Referrals: Sherie Hackett MD [Primary Care Provider] - Russell Zarate MD [Physician] - Stand Alone Forms: Patient Portal/API/Survey
--- NOTE | 2024-07-24 16:59 | EKG_ITS ---
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
[2024-07-24 17:21] LABS: Troponin I 0.027 ng/mL (0.01-0.034)
== END 2024-07-24 18:44 | disposition home or self-care (01) ==
PROVIDERS: Emergency Provider Emergency Medicine; Family Provider Family Medicine; PCP Family Medicine
DX: R07.9 Chest pain, unspecified (principal); I10 Essential (primary) hypertension; Z95.1 Presence of aortocoronary bypass graft; F17.210 Nicotine dependence, cigarettes, uncomplicated; J44.9 Chronic obstructive pulmonary disease, unspecified; I73.9 Peripheral vascular disease, unspecified
CPT/HCPCS: 36415; 71045; 80053; 82550; 83605; 83690; 83735; 83880; 84484; 85025; 85610; 85730; 93005

== ENCOUNTER 2024-07-24 23:21 | Observation (INO) | payer MEDICARE, OTHER, SELFPAY ==
[2024-07-24 23:25] VITALS: BP 187/121; PULSE 121; RESP 33; TEMP 35.8; O2SAT 91; BMI 34.0
[2024-07-24 23:31] VITALS: O2SAT 91
--- NOTE | 2024-07-24 23:32 | EKG_ITS ---
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
--- NOTE | 2024-07-24 23:35 | EKG_ITS ---
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
--- NOTE | 2024-07-24 23:37 | ED.ABDPAIN ---
HPI - Abdominal Pain General Chief Complaint: Shortness of Breath/Dyspnea Stated Complaint: SOB Time Seen by Provider: 07/24/24 23:35 Source: patient, RN notes reviewed and old records reviewed Mode of arrival: Family Vehicle Limitations: no limitations History of Present Illness HPI narrative: 69-year-old male history of CABG x3, tobacco use, COPD, peripheral arterial disease, hypertension, diabetes presents with complaint of shortness of breath. Patient states he was here earlier today states he was here for shortness of breath although his chart notes that he was here for chest pain. Patient states he does not feel like he has any chest pain or pressure. He states that [place] while he was seated started to feel more short of breath and represents. Patient states feels similar to when he was here earlier today. He states his symptoms had gone away while he was here at the emergency department. Denies any recent fevers. States he has had a cough for some time describes it as productive with a little bit of green discoloration. Denies any nausea or vomiting. States he was little bit sweaty earlier. Denies any issues with bowel movements or urination. Denies any new swelling in extremities. Does feel more comfortable upright then lying back. Patient states he takes Xarelto daily, does take medication for hypertension, dyslipidemia and Jardiance he does not believe that he takes any form of Lasix or water pill. States he does not use any inhalers normally. Notes allergy to chloramphenicol. Does use tobacco daily, occasional alcohol, no recreational drugs. Dr. Hackett is his primary care physician. Related Data Home Medications Medication Instructions Recorded Confirmed aspirin 81 mg tablet,delayed 81 mg PO QDAY ##0 10/07/16 release Previous Rx's Medication Instructions Recorded fluticasone propionate 50 1 - 2 spray intranasal QDAY ##1 10/07/16 mcg/actuation nasal spray,suspension (Flonase Allergy Relief) prednisone 50 mg tablet 50 mg PO [facility] 3 days #0 tabs 10/07/16 oxycodone-acetaminophen 5 mg-325 1 tab PO Q4-6H PRN pain #10 tabs 02/21/18 mg tablet (Percocet) prednisone 20 mg tablet 40 mg (2 x 20 mg) PO DAILY #10 tabs 06/07/20 colchicine 0.6 mg capsule 0.6 mg PO DAILY #3 caps 08/20/21 methylprednisolone 4 mg tablets in See Rx Instructions PO .COMPLEX 08/20/21 a dose pack (Medrol (Tad)) #21 ea baclofen 20 mg tablet 20 mg PO TID #20 tabs 10/02/21 oxycodone 5 mg tablet 5 mg PO BID PRN pain #15 tabs 10/02/21 cyclobenzaprine 5 mg tablet 5 mg PO TID PRN muscle spasm #10 09/06/22 tabs Allergies Allergy/AdvReac Type Severity Reaction Status Date / Time chloramphenicol Allergy Unknown RASH Verified 12/22/23 20:34 [CHLORAMPHENICOL] ITCHING shellfish derived Allergy Unknown THROAT Verified 12/22/23 20:34 [SHELLFISH DERIVED] CLOSES UP Review of Systems Review of Systems ROS Unobtainable: All systems reviewed & are unremarkable except as noted in HPI and below Patient History Medical History Gout HTN (hypertension) Surgical History History of elbow surgery Status post appendectomy Social History Smoking Status: Current every day smoker Smoking Status: Current every day smoker tobacco type: cigarettes alcohol intake frequency: holidays/special occasions only Exam Narrative Exam Narrative: GENERAL: Alert and oriented x three, male in moderate distress HEENT: Head normocephalic, atraumatic, EOMI, pupils reactive, face symmetric, moist mucous membranes NECK: Supple, full range of motion CARDIOVASCULAR: Tachycardic but regular rate and rhythm without murmurs, rubs or gallops. No JVD. No edema bilateral lower extremities. RESPIRATORY: Breath sounds equal bilaterally, patient has crackles bilaterally, does have some wheeze bilaterally, tachypnea. No accessory muscle use. Patient's speaks in 4-5 word sentences. ABDOMEN: Soft, nontender. Normoactive bowel sounds all 4 quadrants. No guarding or rebound, rigidity, no mass : No CVA tenderness EXTREMITIES: Normal range of motion, no clubbing or edema. Neurovascularly intact NEUROLOGICAL: Cranial nerves II through XII grossly intact. Moving all extremities SKIN: Warm, dry, no petechiae, no rashes or lesions. Initial Vital Signs Initial Vital Signs: Vital Signs Temperature 96.5 F L 07/24/24 23:25 Pulse Rate 121 H 07/24/24 23:25 Respiratory Rate 33 H 07/24/24 23:25 Blood Pressure 187/121 H 07/24/24 23:25 Pulse Oximetry 91 07/24/24 23:25 Oxygen Delivery Method Room Air 07/24/24 23:25 Course Orders Ordered: ED Orders 07/24/24 23:28 EKG-12 Lead Stat 07/24/24 23:42 XR chest 1V Stat EKG-12 Lead Stat Measure peak expiratory flow ONCE RT Consult Eval and Treat NOW 07/24/24 23:43 Complete Blood Count AUTO DIFF Stat Comprehensive Metabolic Panel Stat Lactate (Lactic Acid) Stat Lipase Stat NT-proBNP (BNP-Adult 18+) Stat PTT Partial Thromboplastin Kael Stat Procalcitonin Stat Prothrombin Time INR Stat Troponin I Stat 07/24/24 23:50 Blood Culture Stat 07/25/24 00:15 Covid-19 + FLU A/B + RSV - PCR Stat 07/25/24 01:46 Trop I [Troponin I] Stat EKG-12 Lead Stat Acetaminophen (Acetaminophen 325 Mg Tablet) 650 mg PO Q6H PRN PRN Reason: Fever/Mild Pain (1-3) Furosemide (Furosemide 40 Mg/4 Ml Vial) 40 mg IV Q8H QUOC Heparin Sodium (Porcine) (Heparin 5,000 Unit/Ml Vial) 5,000 unit SUBCUT BID QUOC Naloxone HCl (Naloxone 0.4 Mg/Ml Vial) 0.2 mg IV Q2MIN PRN PRN Reason: Opiate Reversal Ondansetron HCl (Ondansetron 4 Mg/2 Ml Inj) 4 mg IV NOW PRN PRN Reason: Nausea And Vomiting Ondansetron HCl (Ondansetron 4 Mg Odt) 4 mg SL NOW PRN PRN Reason: Nausea And Vomiting Ondansetron HCl (Ondansetron 4 Mg/2 Ml Inj) 4 mg IV Q8HR PRN PRN Reason: Nausea And Vomiting Discontinued Medications Albuterol/Ipratropium (Albuterol/Ipratropium 3 Ml Ampul) 3 ml INH NOW ONE Stop: 07/24/24 23:31 Last Admin: 07/24/24 23:39 Dose: 3 ml Documented By: PJ Albuterol/Ipratropium (Albuterol/Ipratropium 3 Ml Ampul) 3 ml INH NOW ONE Stop: 07/24/24 23:53 Last Admin: 07/24/24 23:56 Dose: 3 ml Documented By: PJ Aspirin (Aspirin 81 Mg Chew Tab) 324 mg PO NOW ONE Stop: 07/25/24 02:54 Last Admin: 07/25/24 03:25 Dose: 324 mg Documented By: ASIA Furosemide (Furosemide 40 Mg/4 Ml Vial) 40 mg IV NOW ONE Stop: 07/24/24 23:44 Last Admin: 07/25/24 00:13 Dose: 40 mg Documented By: VINCENT Methylprednisolone (Methylprednisolone 125 Mg/2 Ml Vial) 125 mg IV NOW ONE Stop: 07/24/24 23:44 Last Admin: 07/25/24 00:13 Dose: 125 mg Documented By: VINCENT Nitroglycerin (Nitroglycerin 0.4 Mg Sl Tab) 0.4 mg SL NOW ONE Stop: 07/24/24 23:44 Last Admin: 07/25/24 03:23 Dose: Not Given Documented By: ASIA Vital Signs Vital signs: Vital Signs - 8 hr 07/24/24 23:25 07/24/24 23:31 07/24/24 23:39 Temperature 96.5 F L Pulse Rate 121 H 107 H Respiratory Rate 33 H 36 H Blood Pressure 187/121 H Pulse Oximetry 91 91 93 Oxygen Delivery Method Room Air Room Air Oxygen Flow Rate 0 Fraction of Inspired Oxygen 07/24/24 23:56 07/25/24 00:00 07/25/24 00:01 Temperature Pulse Rate 98 H 94 H 95 H Respiratory Rate 28 H 25 H 32 H Blood Pressure Pulse Oximetry 94 93 93 Oxygen Delivery Method Room Air Oxygen Flow Rate 0 Fraction of Inspired Oxygen 07/25/24 00:01 07/25/24 00:30 07/25/24 00:30 Temperature Pulse Rate 87 Respiratory Rate 21 Blood Pressure 179/77 H 165/74 H Pulse Oximetry 94 Oxygen Delivery Method Oxygen Flow Rate Fraction of Inspired Oxygen 07/25/24 01:00 07/25/24 01:00 07/25/24 01:30 Temperature Pulse Rate 86 87 Respiratory Rate 17 22 Blood Pressure 184/80 H Pulse Oximetry 94 94 Oxygen Delivery Method Room Air Room Air Oxygen Flow Rate Fraction of Inspired Oxygen 07/25/24 01:30 07/25/24 02:00 07/25/24 02:00 Temperature Pulse Rate 82 Respiratory Rate 19 Blood Pressure 164/72 H 167/78 H Pulse Oximetry 92 Oxygen Delivery Method Oxygen Flow Rate Fraction of Inspired Oxygen 07/25/24 02:30 07/25/24 02:30 07/25/24 03:00 Temperature Pulse Rate 86 86 Respiratory Rate 22 24 Blood Pressure 183/84 H Pulse Oximetry 95 97 Oxygen Delivery Method Oxygen Flow Rate Fraction of Inspired Oxygen 07/25/24 03:00 Temperature Pulse Rate Respiratory Rate Blood Pressure 183/84 H Pulse Oximetry Oxygen Delivery Method Oxygen Flow Rate Fraction of Inspired Oxygen MDM - Abdominal Pain Lab Data 07/24/24 23:43 07/24/24 23:43 Labs: Lab Results 07/24/24 07/24/24 07/25/24 Range/Units 23:43 23:43 00:15 WBC 9.3 (4.5-11.0) X10^3/uL RBC 6.01 H (4.5-5.9) X10^6/uL Hgb 15.9 (13.5-17.5) g/dL Hct 49.3 (41-53) % MCV 81.9 (80-100) fL MCH 26.5 (26-34) PG MCHC 32.3 (30-36) % RDW 16.7 H (11.6-14.8) % Plt Count 186 (150-400) X10^3/uL Neut % (Auto) 77.5 H (50-75) % Lymph % (Auto) 15.0 L (25-40) % [place] % (Auto) 6.9 (3-14) % Eos % (Auto) 0.2 L (2-4) % Baso % (Auto) 0.4 (0-2) % Neut # (Auto) 7200 H (6044-9089) /uL Lymph # (Auto) 1400 (8198-0229) /uL [place] # (Auto) 600 (0-900) /uL Eos # (Auto) 0 (0-450) /uL Baso # (Auto) 0 (0-100) /uL PT 15.8 H (9.4-12.5) SECONDS INR 1.4 H (0.9-1.3) APTT 41 H (25.1-36.5) SECONDS Sodium 143 (137-145) mmol/L Potassium 3.9 (3.4-5.1) mmol/L Chloride 112 H (98-107) mmol/L Carbon Dioxide 19 L (22-32) mmol/L BUN 15 (9-20) mg/dL Creatinine 0.85 (0.66-1.25) mg/dL Estimated GFR > 60 (>60) mL/min BUN/Creatinine Ratio 17.6 (6-22) Glucose 142 H (80-110) mg/dL Lactate 1.8 (0.7-2.1) mmol/L Calcium 9.6 (8.4-10.2) mg/dL Total Bilirubin 0.8 (0.2-1.3) mg/dL AST 32 (17-59) IU/L ALT 25 (<50) IU/L Alkaline Phosphatase 116 (38-126) U/L Troponin I 0.031 (0.01-0.034) ng/mL NT-Pro-B Natriuret Pep 1680 H (<125) pg/mL Total Protein 8.5 H (6.3-8.2) g/dL Albumin 4.6 (3.5-5.0) g/dL Globulin 3.9 (1.7-4.1) g/dL Albumin/Globulin Ratio 1.2 (1.0-2.8) Lipase 71 (23-300) U/L Procalcitonin Cancelled 0.048 SARS-CoV-2 (PCR) Negative (Negative) Influenza A (RT-PCR) Flu a negative (NEGATIVE) Influenza B (RT-PCR) Flu b negative (NEGATIVE) RSV (PCR) Negative (Negative) 07/25/24 Range/Units 01:46 WBC (4.5-11.0) X10^3/uL RBC (4.5-5.9) X10^6/uL Hgb (13.5-17.5) g/dL Hct (41-53) % MCV (80-100) fL MCH (26-34) PG MCHC (30-36) % RDW (11.6-14.8) % Plt Count (150-400) X10^3/uL Neut % (Auto) (50-75) % Lymph % (Auto) (25-40) % [place] % (Auto) (3-14) % Eos % (Auto) (2-4) % Baso % (Auto) (0-2) % Neut # (Auto) (9242-9912) /uL Lymph # (Auto) (1625-3630) /uL [place] # (Auto) (0-900) /uL Eos # (Auto) (0-450) /uL Baso # (Auto) (0-100) /uL PT (9.4-12.5) SECONDS INR (0.9-1.3) APTT (25.1-36.5) SECONDS Sodium (137-145) mmol/L Potassium (3.4-5.1) mmol/L Chloride (98-107) mmol/L Carbon Dioxide (22-32) mmol/L BUN (9-20) mg/dL Creatinine (0.66-1.25) mg/dL Estimated GFR (>60) mL/min BUN/Creatinine Ratio (6-22) Glucose (80-110) mg/dL Lactate (0.7-2.1) mmol/L Calcium (8.4-10.2) mg/dL Total Bilirubin (0.2-1.3) mg/dL AST (17-59) IU/L ALT (<50) IU/L Alkaline Phosphatase (38-126) U/L Troponin I 0.047 H (0.01-0.034) ng/mL NT-Pro-B Natriuret Pep (<125) pg/mL Total Protein (6.3-8.2) g/dL Albumin (3.5-5.0) g/dL Globulin (1.7-4.1) g/dL Albumin/Globulin Ratio (1.0-2.8) Lipase (23-300) U/L Procalcitonin SARS-CoV-2 (PCR) (Negative) Influenza A (RT-PCR) (NEGATIVE) Influenza B (RT-PCR) (NEGATIVE) RSV (PCR) (Negative) ECG Data Attestation: I personally reviewed and interpreted this ECG as follows: Prior ECG tracings: available for review Interpretation: Sinus tach fusion complexes rate of 114, FL 148 QRS of 108 QTC of 504, no acute ST elevation. Patient has priors from earlier today in his visit 1 is sinus rhythm but appears similar ST segments there is a prior from 12/22/2023 that does appear different. MDM Narrative Medical decision making narrative: 69-year-old male with cardiac history on Xarelto represents with shortness of breath, patient is more wet on exam but does respond to neb treatment he was tachycardic, hypertensive tachypneic with 91% room air. Initially patient denied any chest pain or pressure but after further discussion on rechecked he notes that he did not have pressure earlier today and had similar pressure here in the department which has since resolved as his symptoms have improved. Patient had chest x-ray earlier today that showed cardiomegaly and mild congestion with interstitial lung markings could be pulmonary edema. Has ECHO from 12/21/2023 that showed borderline enlarged left ventricle EF of 40 45% normal right ventricular size moderate aortic stenosis [id number] aortic regurg [id number] mitral regurg no prior echo comparison Labs show white count of 9.3 hemoglobin 15.9 platelets of 186. INR is 1.4, labs shows CO2 of 19, chloride of 112 otherwise normal sodium and potassium glucose is 142 normal creatinine and BUN lactate 1.8 LFTs are negative, troponin is 0.031 and BNP 1680 was 1110 earlier today. Procalcitonin is negative. Repeat troponin is 0.047 EKG shows sinus tach, similar to EKG from earlier today. Repeat EKG shows diffuse ST depression lateral leads and anterior leads. Chest x-ray, cardiomegaly with pulmonary edema possible CHF no focal dense airspace consolidation. Compared to prior from earlier today. COVID/influenza/RSV is negative. Patient received DuoNeb x2 and he is feeling much improved. On repeat 1215 exam patient was not particularly wheezy but his crackles also appear improved. Patient's heart rate has been coming down as well as his hypertension was improved in the room as well he was 170s over 90s with a heart rate in the 80s repeat exam. Recheck @ 0130 patient continues to feel significantly improved, still little bit coarse but not wheezy. Patient's states he feels much better his tachycardia has resolved he was 94% room air so little bit hypertensive but diastolic is improved. Patient did not receive sublingual nitro but did have DuoNebs as well as Lasix. He states he has had about 900 mL out as well. [address] Zarate, cardiology. Patient was follow up with the group reviewed patient states feels very similar to when he would cardiac issues before was tachycardic and hypertensive initially improved his symptoms have since improved but troponin initial was negative repeat trending upwards into the indeterminate range did review patient's EKG changes here in the department and discussed if he would like transfer for cardiac catheterization versus observation for stress testing. Dr. Zarate feels patient is appropriate for stress test here and does not require transfer at this time. Spoke with Dr. Huynh, tele hospitalist accepts for med tele observation cardiac obs Patient received aspirin, Solu-Medrol, DuoNebs and Lasix. Discharge Plan Departure Patient Disposition: Admitted as Observation Clinical Impression: Chest pain, Shortness of breath Admit Date/Time: 07/25/24 03:25 Admit Provider: Tarik Huynh
[2024-07-24 23:39] VITALS: PULSE 107; RESP 36; O2SAT 93
[2024-07-24] MEDS: ALBUTEROL/IPRATROPIUM 3 ML AMPUL INH ×2 (23:39→23:56)
--- NOTE | 2024-07-24 23:42 | DI.RAD.S_ITS ---
PROCEDURE: XR CHEST 1V INDICATIONS: Shortness of breath TECHNIQUE: One view of the chest was acquired. COMPARISON: [facility], CR, XR CHEST 1V, 07/24/2024, 14:26. FINDINGS: Surgical changes and devices: Median sternotomy Lungs and pleura: No pneumothorax. No significant pleural effusions. Redemonstration of increased interstitial markings likely representing pulmonary edema. No focal airspace consolidation.. Mediastinum: Mediastinal contours appear normal. Heart size is enlarged. Bones and chest wall: No suspicious bony lesions. Overlying soft tissues appear unremarkable. IMPRESSION: Cardiomegaly with pulmonary edema, possible CHF. No focal dense airspace consolidation. Approved by: Yulisa Patel M.D.,Ph.D. on 07/25/2024 at 0:21
[2024-07-24 23:56] VITALS: PULSE 98; RESP 28; O2SAT 94
[2024-07-24 23:58] LABS: Add Manual Diff / Slide Review NO; Basophils Absolute Auto 0 /uL (0-100); Basophils Percent Auto 0.4 % (0-2); Eosinophils Absolute Auto 0 /uL (0-450); Eosinophils Percent Auto 0.2 % (2-4); Hematocrit 49.3 % (41-53); Hemoglobin 15.9 g/dL (13.5-17.5); Lymphocytes Absolute Auto 1400 /uL (1100-4500); Mean Corpuscular HGB Conc 32.3 % (30-36); Mean Corpuscular Hemoglobin 26.5 PG (26-34); Mean Corpuscular Volume 81.9 fL (80-100); Monocytes Absolute Auto 600 /uL (0-900); Monocytes Percent Auto 6.9 % (3-14); Neutrophils Absolute Auto 7200 /uL (1500-7000); Neutrophils Percent Auto 77.5 % (50-75); Platelet Count 186 X10^3/uL (150-400); Red Blood Cell Count 6.01 X10^6/uL (4.5-5.9); Red Cell Distribution Width 16.7 % (11.6-14.8); White Blood Cell Count 9.3 X10^3/uL (4.5-11.0)
[2024-07-25] VITALS (12 sets, daily range): BP systolic 152–184; BP diastolic 67–84; PULSE 75–95; RESP 17–32; TEMP 36–36.2; O2SAT 92–97; BMI 33.2
[2024-07-25] MEDS: methylPREDNISolone 125 MG/2 ML VIAL IV (00:13)
[2024-07-25] MEDS: FUROSEMIDE 40 MG/4 ML VIAL IV ×2 (00:13→08:58)
[2024-07-25 00:19] LABS: INR 1.4 (0.9-1.3); Prothrombin Time 15.8 SECONDS (9.4-12.5)
[2024-07-25 00:20] LABS: Alanine Aminotransferase 25 IU/L (<50); Albumin 4.6 g/dL (3.5-5.0); Albumin Globulin Ratio 1.2 (1.0-2.8); Alkaline Phosphatase 116 U/L (38-126); Aspartate Aminotransferase 32 IU/L (17-59); BUN Creatinine Ratio 17.6 (6-22); Bilirubin Total 0.8 mg/dL (0.2-1.3); Blood Urea Nitrogen 15 mg/dL (9-20); Calcium 9.6 mg/dL (8.4-10.2); Carbon Dioxide 19 mmol/L (22-32); Chloride 112 mmol/L (98-107); Estimated Glomerular Filt Rate > 60 mL/min (>60); Globulin 3.9 g/dL (1.7-4.1); Glucose 142 mg/dL (80-110); HEMOLYSIS < 15 (0-50); Potassium 3.9 mmol/L (3.4-5.1); Sodium 143 mmol/L (137-145); Total Protein 8.5 g/dL (6.3-8.2)
[2024-07-25 00:21] LABS: PTT Partial Thromboplastin Tim 41 SECONDS (25.1-36.5)
[2024-07-25 00:22] LABS: Lipase 71 U/L (23-300)
[2024-07-25 00:23] LABS: Lactate (Lactic Acid) 1.8 mmol/L (0.7-2.1)
[2024-07-25 00:32] LABS: NT-proBNP (BNP-Adult 18+) 1680 pg/mL (<125); Troponin I 0.031 ng/mL (0.01-0.034)
[2024-07-25 00:40] LABS: Procalcitonin 0.048 ng/mL (<0.5)
[2024-07-25 01:09] LABS: Influenza A - CEPHEID Flu A NEGATIVE (NEGATIVE); Influenza B - CEPHEID Flu B NEGATIVE (NEGATIVE); Respiratory Syncytial Virus Negative (Negative)
[2024-07-25 01:38] LABS: COVID-19 CEPHEID 4-PLEX PCR Negative (Negative)
--- NOTE | 2024-07-25 01:51 | EKG_ITS ---
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
[2024-07-25 02:17] LABS: Troponin I 0.047 ng/mL (0.01-0.034)
[2024-07-25] MEDS: ASPIRIN 81 MG CHEW TAB 324 MG PO (03:25)
[2024-07-25 05:36] LABS: Add Manual Diff / Slide Review NO; Basophils Absolute Auto 0 /uL (0-100); Basophils Percent Auto 0.1 % (0-2); Eosinophils Absolute Auto 0 /uL (0-450); Hematocrit 48.4 % (41-53); Hemoglobin 15.5 g/dL (13.5-17.5); Lymphocytes Absolute Auto 500 /uL (1100-4500); Lymphocytes Percent Auto 4.7 % (25-40); Mean Corpuscular HGB Conc 32.1 % (30-36); Mean Corpuscular Hemoglobin 26.3 PG (26-34); Mean Corpuscular Volume 81.7 fL (80-100); Monocytes Absolute Auto 100 /uL (0-900); Neutrophils Absolute Auto 10500 /uL (1500-7000); Neutrophils Percent Auto 94.2 % (50-75); Platelet Count 209 X10^3/uL (150-400); Red Blood Cell Count 5.92 X10^6/uL (4.5-5.9); Red Cell Distribution Width 16.5 % (11.6-14.8); White Blood Cell Count 11.2 X10^3/uL (4.5-11.0)
[2024-07-25 05:49] LABS: BUN Creatinine Ratio 19.8 (6-22); Blood Urea Nitrogen 16 mg/dL (9-20); Calcium 9.7 mg/dL (8.4-10.2); Carbon Dioxide 20 mmol/L (22-32); Chloride 109 mmol/L (98-107); Estimated Glomerular Filt Rate > 60 mL/min (>60); Glucose 170 mg/dL (80-110); HEMOLYSIS < 15 (0-50); Potassium 3.7 mmol/L (3.4-5.1); Sodium 142 mmol/L (137-145)
--- NOTE | 2024-07-25 07:02 | PM.HP.1 ---
History of Present Illness History of Present Illness Chief complaint: SOB Narrative: 69 year old male with past medical history of CAD s/p CABG x3v, chronic systolic HF with EF 40% (11/2023), COPD non O2 dependent, tobacco abuse, PAD, HTN and DM presents with shortness of breath. Of note, the patient was seen here in our ER for chest pain and shortness of breath earlier today. The patient was deemed stable and was discharge home from our ER. However, the patient instead went directly to the [facility]. After being there, the patient states that he started to have some chest tightness and shortness of breath. Otherwise, the patient denies any fever, chills, coughing, nausea, vomiting or diarrhea. In our ER, the patient remains hemodynamically stable and was saturating. The patient however with sign of volume overload with elevated BNP. Initial trop was negative but second trop slightly elevated at 0.4. Due to reports of chest pain and sign of acute CHF. The patient was given IV Lasix with good urine output of 1.2L. [facility] Medical History Gout HTN (hypertension) Surgical History History of elbow surgery Status post appendectomy Social History household members: spouse Smoking Status: Current every day smoker alcohol intake: current Meds Home Medications and Allergies Home Medications Medication Instructions Recorded Confirmed Type albuterol sulfate 90 mcg/actuation 1 puff inhalation Q4-6H 07/25/24 07/25/24 History aerosol inhaler atorvastatin 80 mg tablet 80 mg PO DAILY 07/25/24 07/25/24 History empagliflozin 10 mg tablet 10 mg PO DAILY 07/25/24 07/25/24 History (Jardiance) furosemide 40 mg tablet 40 mg DAILY 07/25/24 07/25/24 History gabapentin 300 mg capsule 600 mg PO TID chronic pain 07/25/24 07/25/24 History rivaroxaban 2.5 mg tablet (Xarelto) 2.5 mg DAILY 07/25/24 07/25/24 History tamsulosin 0.4 mg capsule 0.4 mg PO DAILY 07/25/24 07/25/24 History Allergies Allergy/AdvReac Type Severity Reaction Status Date / Time chloramphenicol Allergy Unknown RASH Verified 12/22/23 20:34 [CHLORAMPHENICOL] ITCHING shellfish derived Allergy Unknown THROAT Verified 12/22/23 20:34 [SHELLFISH DERIVED] CLOSES UP Review of Systems Review of Systems ROS: Yes All systems reviewed with the patient and are negative except as otherwise documented Exam Vital Signs (past 8 hours): - 07/24/24 23:25 07/24/24 23:31 07/24/24 23:39 Temperature 96.5 F L Pulse Rate 121 H 107 H Respiratory Rate 33 H 36 H Blood Pressure 187/121 H Pulse Oximetry 91 91 93 Oxygen Delivery Method Room Air Room Air Oxygen Flow Rate 0 Fraction of Inspired Oxygen 21 07/24/24 23:56 07/25/24 00:00 07/25/24 00:01 Temperature Pulse Rate 98 H 94 H 95 H Respiratory Rate 28 H 25 H 32 H Blood Pressure Pulse Oximetry 94 93 93 Oxygen Delivery Method Room Air Oxygen Flow Rate 0 Fraction of Inspired Oxygen 21 07/25/24 00:01 07/25/24 00:30 07/25/24 00:30 Temperature Pulse Rate 87 Respiratory Rate 21 Blood Pressure 179/77 H 165/74 H Pulse Oximetry 94 Oxygen Delivery Method Oxygen Flow Rate Fraction of Inspired Oxygen 07/25/24 01:00 07/25/24 01:00 07/25/24 01:30 Temperature Pulse Rate 86 87 Respiratory Rate 17 22 Blood Pressure 184/80 H Pulse Oximetry 94 94 Oxygen Delivery Method Room Air Room Air Oxygen Flow Rate Fraction of Inspired Oxygen 07/25/24 01:30 07/25/24 02:00 07/25/24 02:00 Temperature Pulse Rate 82 Respiratory Rate 19 Blood Pressure 164/72 H 167/78 H Pulse Oximetry 92 Oxygen Delivery Method Oxygen Flow Rate Fraction of Inspired Oxygen 07/25/24 02:30 07/25/24 02:30 07/25/24 03:00 Temperature Pulse Rate 86 86 Respiratory Rate 22 24 Blood Pressure 183/84 H Pulse Oximetry 95 97 Oxygen Delivery Method Oxygen Flow Rate Fraction of Inspired Oxygen 07/25/24 03:00 07/25/24 03:30 07/25/24 03:30 Temperature Pulse Rate 84 Respiratory Rate 24 Blood Pressure 183/84 H 170/79 H Pulse Oximetry 95 Oxygen Delivery Method Oxygen Flow Rate Fraction of Inspired Oxygen 07/25/24 04:00 07/25/24 04:00 07/25/24 04:40 Temperature 96.8 F L Pulse Rate 78 76 Respiratory Rate 24 20 Blood Pressure 152/69 H 166/81 H Pulse Oximetry 93 97 Oxygen Delivery Method Room Air Oxygen Flow Rate 0 Fraction of Inspired Oxygen 07/25/24 05:09 Temperature Pulse Rate Respiratory Rate Blood Pressure Pulse Oximetry Oxygen Delivery Method Room Air Oxygen Flow Rate Fraction of Inspired Oxygen Fraction of Inspired Oxygen 21 SaO2/FiO2 Ratio 438 Oxygen Delivery Method Room Air Oxygen Flow Rate 0 Narrative Exam Narrative: Physical Exam: GENERAL: The patient is not in any acute distressed. Awake and alert. HEENT: Nonicteric sclerae, PERRLA, EOMI. Oropharynx clear. Moist mucous membranes. Conjunctivae appear well perfused. HEART: Regular rate and rhythm without murmurs. No lower extremities edema. LUNGS: Clear to auscultation bilaterally. No wheezing, crackles or rhonchi ABDOMEN: Soft, positive bowel sounds, nontender. SKIN: No rash, no excessive bruising, petechiae, or purpura. NEUROLOGIC: AxO x 3. Cranial nerves II-XII intact without motor/sensory deficit. Objective Labs 07/25/24 04:47 07/25/24 04:47 Labs: Laboratory Results - last 24 hr 07/24/24 07/24/24 07/25/24 23:43 23:43 00:15 WBC 9.3 RBC 6.01 H Hgb 15.9 Hct 49.3 MCV 81.9 MCH 26.5 MCHC 32.3 RDW 16.7 H Plt Count 186 Neut % (Auto) 77.5 H Lymph % (Auto) 15.0 L [place] % (Auto) 6.9 Eos % (Auto) 0.2 L Baso % (Auto) 0.4 Neut # (Auto) 7200 H Lymph # (Auto) 1400 [place] # (Auto) 600 Eos # (Auto) 0 Baso # (Auto) 0 PT 15.8 H INR 1.4 H APTT 41 H Sodium 143 Potassium 3.9 Chloride 112 H Carbon Dioxide 19 L BUN 15 Creatinine 0.85 Estimated GFR > 60 BUN/Creatinine Ratio 17.6 Glucose 142 H Lactate 1.8 Calcium 9.6 Total Bilirubin 0.8 AST 32 ALT 25 Alkaline Phosphatase 116 Troponin I 0.031 NT-Pro-B Natriuret Pep 1680 H Total Protein 8.5 H Albumin 4.6 Globulin 3.9 Albumin/Globulin Ratio 1.2 Lipase 71 Procalcitonin Cancelled 0.048 SARS-CoV-2 (PCR) Negative Influenza A (RT-PCR) Flu a negative Influenza B (RT-PCR) Flu b negative RSV (PCR) Negative 07/25/24 07/25/24 01:46 04:47 WBC 11.2 H RBC 5.92 H Hgb 15.5 Hct 48.4 MCV 81.7 MCH 26.3 MCHC 32.1 RDW 16.5 H Plt Count 209 Neut % (Auto) 94.2 H Lymph % (Auto) 4.7 L [place] % (Auto) 1.0 L Eos % (Auto) 0.0 L Baso % (Auto) 0.1 Neut # (Auto) 89870 H Lymph # (Auto) 500 L [place] # (Auto) 100 Eos # (Auto) 0 Baso # (Auto) 0 PT INR APTT Sodium 142 Potassium 3.7 Chloride 109 H Carbon Dioxide 20 L BUN 16 Creatinine 0.81 Estimated GFR > 60 BUN/Creatinine Ratio 19.8 Glucose 170 H Lactate Calcium 9.7 Total Bilirubin AST ALT Alkaline Phosphatase Troponin I 0.047 H NT-Pro-B Natriuret Pep Total Protein Albumin Globulin Albumin/Globulin Ratio Lipase Procalcitonin SARS-CoV-2 (PCR) Influenza A (RT-PCR) Influenza B (RT-PCR) RSV (PCR) Assessment & Plan Assessment & Plan narrative: Acute on chronic systolic heart failure. Admit the patient to medical telemetry under observation. Daily weights and strict I/Os. Continue IV Lasix 40mg q8h. Repeat echo since last echo 11/2023. Chest pain. Now resolved with diuresising. Could be related to above. Continue to trend trop. EKG shows no sign of acute ischemia. COPD non O2 dependent. No clear sign of exacerbation. Resume home inhalers. DVT PPx hep SQ Code status full code Disposition home in 1-2 days Time-Based Coding :: [TOTAL MINUTES] spent with patient and on the chart (including review of chart, obtaining history, exam, reviewing outside data, placing orders, documenting exam and treatment plan, and counseling patient) on [DATE].
[2024-07-25] MEDS: HEPARIN 5,000 UNIT/ML VIAL 5000 UNIT SUBCUT (08:59)
--- NOTE | 2024-07-25 12:25 | P.DS_ITS ---
History of Present Illness History of Present Illness Date Patient Seen: 07/25/24 Time Patient Seen: 12:25 Chief complaint: SOB Narrative: Per ER provider, 69 year old male with past medical history of CAD s/p CABG x3v, chronic systolic HF with EF 40% (11/2023), COPD non O2 dependent, tobacco abuse, PAD, HTN and DM presents with shortness of breath. Of note, the patient was seen here in our ER for chest pain and shortness of breath earlier today. The patient was deemed stable and was discharge home from our ER. However, the patient instead went directly to the [facility]. After being there, the patient states that he started to have some chest tightness and shortness of breath. Otherwise, the patient denies any fever, chills, coughing, nausea, vomiting or diarrhea. In our ER, the patient remains hemodynamically stable and was saturating. The patient however with sign of volume overload with elevated BNP. Initial trop was negative but second trop slightly elevated at 0.4. Due to reports of chest pain and sign of acute CHF. The patient was given IV Lasix with good urine output of 1.2L. Discharge Providers Provider Date of admission: 07/25/24 03:25 Discharge Date: 07/25/24 Primary care physician: Sherie Hackett MD Discharge provider: Nick Brown DO Summary Hospital Course Discharge Diagnosis: Acute on chronic borderline reduced EF heart failure, technically diastolic. Chest pain associated with volume overload. COPD non O2 dependent. without exacerbation Myocardial injury Hospital Course: This is a 69 year old male with PMH of CHF with borderline EF 40-45 % with last TTE in 11/2023 who presented with shortness of breath and left sided chest pressure worsened with inhalation per patient. With initial diuresis his chest symptoms resolved and he felt much improved. His troponins did rise on initial labs to 0.047 but then downtrended. Given his improvement, repeat TTE was not recommended at this time as the patient reported drinking large amounts of fluid (>3 L per day). He was counseled on dietary restrictions with heart failure. For now we discussed increasing his home furosemide to twice daily, and if significant weight loss, dizziness, or low BP to lower the diuretic back. I do recommend follow up with either PCP or cardiology for further evaluation, and recommend outpatient evaluation for possible cardiac stress testing. Time Spent with Patient Time spent: Greater than 30 minutes Exam Vital Signs (past 8 hours): - 07/25/24 04:40 07/25/24 05:09 07/25/24 09:21 Temperature 96.8 F L 97.2 F L Pulse Rate 76 75 Respiratory Rate 20 19 Blood Pressure 166/81 H 157/67 H Pulse Oximetry 97 94 Oxygen Delivery Method Room Air Oxygen Flow Rate 0 0 Fraction of Inspired Oxygen 21 SaO2/FiO2 Ratio 438 Oxygen Delivery Method Room Air Oxygen Flow Rate 0 Narrative Exam Narrative: Physical Exam: GENERAL: The patient is not in any acute distressed. Awake and alert. HEENT: Nonicteric sclerae, PERRLA, EOMI. Oropharynx clear. Moist mucous membranes. Conjunctivae appear well perfused. HEART: Regular rate and rhythm without murmurs. No lower extremities edema. LUNGS: Clear to auscultation bilaterally. No wheezing, crackles or rhonchi ABDOMEN: Soft, positive bowel sounds, nontender. SKIN: No rash, no excessive bruising, petechiae, or purpura. NEUROLOGIC: AxO x 3. Cranial nerves II-XII intact without motor/sensory deficit. Objective Labs 07/25/24 04:47 07/25/24 04:47 Labs: Laboratory Results - last 24 hr 07/24/24 07/24/24 07/25/24 23:43 23:43 00:15 WBC 9.3 RBC 6.01 H Hgb 15.9 Hct 49.3 MCV 81.9 MCH 26.5 MCHC 32.3 RDW 16.7 H Plt Count 186 Neut % (Auto) 77.5 H Lymph % (Auto) 15.0 L Falls % (Auto) 6.9 Eos % (Auto) 0.2 L Baso % (Auto) 0.4 Neut # (Auto) 7200 H Lymph # (Auto) 1400 Falls # (Auto) 600 Eos # (Auto) 0 Baso # (Auto) 0 PT 15.8 H INR 1.4 H APTT 41 H Sodium 143 Potassium 3.9 Chloride 112 H Carbon Dioxide 19 L BUN 15 Creatinine 0.85 Estimated GFR > 60 BUN/Creatinine Ratio 17.6 Glucose 142 H Lactate 1.8 Calcium 9.6 Total Bilirubin 0.8 AST 32 ALT 25 Alkaline Phosphatase 116 Troponin I 0.031 NT-Pro-B Natriuret Pep 1680 H Total Protein 8.5 H Albumin 4.6 Globulin 3.9 Albumin/Globulin Ratio 1.2 Lipase 71 Procalcitonin Cancelled 0.048 SARS-CoV-2 (PCR) Negative Influenza A (RT-PCR) Flu a negative Influenza B (RT-PCR) Flu b negative RSV (PCR) Negative 07/25/24 07/25/24 07/25/24 01:46 04:47 08:45 WBC 11.2 H RBC 5.92 H Hgb 15.5 Hct 48.4 MCV 81.7 MCH 26.3 MCHC 32.1 RDW 16.5 H Plt Count 209 Neut % (Auto) 94.2 H Lymph % (Auto) 4.7 L Falls % (Auto) 1.0 L Eos % (Auto) 0.0 L Baso % (Auto) 0.1 Neut # (Auto) 98509 H Lymph # (Auto) 500 L Falls # (Auto) 100 Eos # (Auto) 0 Baso # (Auto) 0 PT INR APTT Sodium 142 Potassium 3.7 Chloride 109 H Carbon Dioxide 20 L BUN 16 Creatinine 0.81 Estimated GFR > 60 BUN/Creatinine Ratio 19.8 Glucose 170 H Lactate Calcium 9.7 Total Bilirubin AST ALT Alkaline Phosphatase Troponin I 0.047 H 0.040 H NT-Pro-B Natriuret Pep Total Protein Albumin Globulin Albumin/Globulin Ratio Lipase Procalcitonin SARS-CoV-2 (PCR) Influenza A (RT-PCR) Influenza B (RT-PCR) RSV (PCR) [facility] Medical History Gout HTN (hypertension) Surgical History History of elbow surgery Status post appendectomy Social History household members: spouse Smoking Status: Current every day smoker alcohol intake: current Discharge Plan Discharge Plan Patient Disposition: Home Provider Discharge Comment: You were admitted to the hospital with chest discomfort which improved with medications. Recommend prompt PCP follow up, consideration of stress testing, and continued BP management. After discussion we will increase your home furosemide, please continue to monitor BP and weight with this change. Discharge orders & Medications Prescriptions: New (DME) nebulizers [Compact Compressor Nebulizer] Misc See Rx Instructions .Route Qty: 1 0RF Rx Instructions: One nebulizer and compressor albuterol sulfate 1.25 mg/3 mL solution for nebulization 2.5 mg inhalation Q4-6H PRN (Reason: shortness of breath or wheezing) 30 Days Qty: 90 0RF Continued atorvastatin 80 mg tablet 80 mg PO DAILY tamsulosin 0.4 mg capsule 0.4 mg PO DAILY gabapentin 300 mg capsule 600 mg PO TID Rx Instructions: Recently increased to TID albuterol sulfate 90 mcg/actuation HFA aerosol inhaler 1 puff INHALATION Q4-6H Jardiance 10 mg tablet 10 mg PO DAILY Xarelto 2.5 mg tablet 2.5 mg DAILY Patient Comments: [NO ORIGINAL SIG] Changed furosemide 40 mg tablet 40 mg PO BID 30 Days Qty: 60 0RF Follow up/Referrals: Sherie Hackett MD [Primary Care Provider] - Discharge Health Status Multidrug resistant organism: No MDRO Diet/Activity/Treatments Diet: Diet as Tolerated and Regular Activity: As tolerated no restrictions Visit Report/Discharge Packet Instructions: Heart Failure, DI for Shortness of Breath, DI for Chest Pain, How to Manage Shortness of Breath Stand Alone Forms: Patient Portal/API, Stroke Signs & Symptoms Discharge Data Primary Care Provider: Sherie Hackett Attending Provider: Tarik Huynh Admit Date/Time: 07/25/24 03:25
--- NOTE | 2024-07-25 14:03 | CM.DANOTE ---
Patient is a 69 yo male who was admitted OBS Status on 07/25/24 for Chest Pain r/o and CHF. Pt has [employer] for insurance and his PCP is Dr. Gerber. EMR was reviewed. Per MD, pt with hx of CAD and EF of 40% and COPD at baseline and admitted for SOB and CHF exacerbation and chest pain r/o. Pt to have Echo today and then likely home pending results. Per RN, pt independent in room and no need for PT and no concerns noted. SW met bedside with pt and explained role and he confirms he lives at home in [place] with his and is active and independent at baseline and does use a cane for ambulation due to his sciatica. Pt drives and denies any hx of HH or SNF and states he and are working on POA pwk. Pt preference is home via spouse POV today and spouse arrived bedside and confirms she can transport and pt only identified need for d/c is requesting MD to write script for home nebs. Echo complete and MD confirms pt stable for d/c and will follow up with pt regarding nebulizers for home. Plan: Patient to discharge home today via spouse POV and outpt f/u and no further discharge planning needs. MIHCAEL Nunez Discharge Planning/Care Management CM Discharge Assessment Start: 07/25/24 14:01 Freq: Status: Active Protocol: Document 07/25/24 14:01 BF (Rec: 07/25/24 14:03 [id number]) Discharge Planning Assessment Assigned Dye Blender MICHAEL Norton DPOA/Assigned Designee Name spouse Kaitlyn Contact Information [phone] Advance Directives? No Advance Directives on File No History Provided By Patient,Significant Other, Medical Record Has Patient been admitted in last 30 No days? Prior Living Arrangements House Household Members spouse Type of transporation used prior to Drives own vehicle admit Independent with ADL's Yes Is patient alert and oriented? Yes Caregiver for Another No DME Already Rented / Owned Cane Barriers to Discharge No Discharge Plan Home Transportation Arrangement Spouse bedside and plans to transport at d/c Referrals Initiated Other Additional Comment outpt cardio f/u Whiteboard Updated in Patient Room with Yes name and ext. # of Dye Blender Review Status In Process Please Provide Date Initial DC 07/25/24 Assessment Was Performed Next Review Type Continued Stay Review
== END 2024-07-25 13:11 | disposition home or self-care (01) ==
LOC: ED 07-25 03:23 → AC 07-25 03:26
PROVIDERS: Admitting Provider Internal Medicine; Emergency Provider Emergency Medicine; Family Provider Family Medicine; PCP Family Medicine; Referring Provider Emergency Medicine; Visit Provider Internal Medicine
DX: I11.0 Hypertensive heart disease with heart failure (principal); I50.23 Acute on chronic systolic (congestive) heart failure; I73.9 Peripheral vascular disease, unspecified; E11.9 Type 2 diabetes mellitus without complications; I25.10 Atherosclerotic heart disease of native coronary artery without angina pectoris; J44.9 Chronic obstructive pulmonary disease, unspecified; Z72.0 Tobacco use; E78.5 Hyperlipidemia, unspecified; Z95.1 Presence of aortocoronary bypass graft; Z79.01 Long term (current) use of anticoagulants; Z79.84 Long term (current) use of oral hypoglycemic drugs; Z11.52 Encounter for screening for COVID-19
CPT/HCPCS: 0241U; 36415; 71045; 80048; 80053; 82550; 83605; 83690; 83735; 83880; 84145; 84484; 85025; 85610; 85730; 93005; 96372; 96374; 96375; 96376; 99284; G0378; J1644; J1940; J2919

== ENCOUNTER → 2024-11-26 12:58 | Outpatient (CLI) | payer MEDICARE, OTHER, SELFPAY ==
[2024-07-25 05:09] VITALS: BMI 33.2
--- NOTE | 2024-11-26 13:07 | DI.ECHO.S_ITS ---
[facility] : : [id number] : [address] [place] : : [id number] : : Phone: [phone] Echocardiogram Report + + :Name: CARLOS ENRIQUE YIP Study Date: 11/26/2024 Height: 69 in : :[facility] [employer] [facility] ReadingLocation: Weight: 222 lb : : Gender: Male BSA: 2.2 m2 : :: 1955 Age: 69 yrs BP: 142/86 mmHg: :Reason For Study: NONRHEUMATIC AORTIC VALVE STENOSIS : :Ordering Physician: PATRICIA, : :MAYA Performed By: Deb Rain : :Referring: MAYA GHOSH : + + Interpretation Summary 1) Mildly enlarged left ventricle with moderately to severely reduced systolic function (EF 30-35%). 2) Normal right ventricular size with moderately reduced function. 3) There is moderate aortic stenosis (valve area 1.1cm2, mean gradient 29mHg, severity raito 0.26). 4) There is mild to moderate aortic regurgitation. 5) There is mild to moderate mitral regurgitation. 6) Compared to the Echo done 12/21/2023, LVEF has decreased from 40-45% to 30- 35%on this study. Procedure: A two-dimensional transthoracic echocardiogram with color flow and Doppler was performed. The study quality was technically adequate. There is no prior echocardiogram noted for this patient. The patient was in sinus rhythm with heart rates between 63-70 bpm during the exam. Left Ventricle: The left ventricle is mildly dilated. The estimated left ventricular end diastolic volume is 186 ml. LVEDvolume indexed to BSA of 86.27ml/m2. Left ventricular wall thickness is mildly increased. The ejection fraction is estimated to be 30-35%. Right Ventricle: The right ventricle is normal size. Right ventricular systolic function is moderately reduced. Atria: The left atrium is mildly dilated. Right atrial size is normal. There is no Doppler evidence for an interatrial shunt. Mitral Valve: The mitral valve leaflets appear moderately thickened, but open well. There is mild to moderate mitral regurgitation. Aortic Valve: The aortic valve is heavily calcified. There is moderate aortic stenosis. The peak aortic velocity is 3.3 m/sec. The aortic valve mean gradient is 29 mmHg. The calculated aortic valve area is 0.89 cm2. There is mild to moderate aortic regurgitation. Tricuspid Valve: The tricuspid valve leaflets are thin and pliable. There is trace tricuspid regurgitation. Pulmonary artery pressures cannot be estimated because of the lack of a measurable TR jet velocity. Pulmonic Valve: The pulmonic valve leaflets are thin and pliable; valve motion is normal. There is no pulmonic valvular regurgitation. Great Vessels: The aortic root is normal size. The dimensions of the ascending aorta are normal. The IVC is of normal diameter and collapses greater than 50% with a sniff. This suggests a low right atrial pressure of 3 mm Hg. Pericardium/ Pleura There is no pericardial effusion. There is no pleural effusion. MMode/2D Measurements & Calculations LVIDd: 6.1 cm LVOT diam: 2.3 cm LVIDs: 5.2 cm Ao root diam: 3.5 cm FS: 15.8 % asc Aorta Diam: 2.9 cm EPSS: 2.3 cm Ao Arch Diam (Prox Trans): 2.9 cm IVSd: 1.1 cm LVPWd: 0.91 cm LV acosta. diameter/BSA (cm/m^2): 2.8 LV sys. diameter/BSA (cm/m^2): 2.4 LA A2 area: 23.0 cm2 RA long axis: 5.8 cm LA A4 area: 24.1 cm2 RA area: 19.0 cm2 LA length (vol): 5.8 cm RA vol: 52.3 ml LA vol: 81.7 ml RA : 24.2 ml/m2 LA vol index: 37.8 ml/m2 IVC diam: 1.4 cm RVD1 (basal): 2.8 cm RVD2 (mid): 3.2 cm TAPSE: 1.1 cm Doppler Measurements & Calculations Ao V2 max: 334.5 cm/sec LVOT Max Figueroa: 71.7 cm/sec Ao V2 mean: 209.4 cm/sec LV V1 max P.1 mmHg Ao max P.8 mmHg LV V1 VTI: 16.9 cm Ao mean P.5 mmHg ALISON(I,D): 1.1 cm2 Ao V2 VTI: 66.1 cm ALISON(V,D): 0.89 cm2 sev ratio: 0.26 ALISON indexed to BSA (cm^2/m^2): 0.49 AI P1/2t: 306.0 msec AI dec slope: 390.4 cm/sec2 MV E max figueroa: 117.9 cm/sec PA pr(Accel): 21.2 mmHg MV A max figueroa: 38.0 cm/sec MV E/A: 3.1 Med Peak E' Figueroa: 5.4 cm/sec E/E' med: 21.8 Lat Peak E' Figueroa: 4.1 cm/sec E/E' lat: 28.7 E/e' average: 25.2 MV dec time: 0.16 sec MVA(VTI): 2.2 cm2 MV V2 mean: 72.7 cm/sec SV(LVOT): 70.3 ml MV mean P.8 mmHg MV V2 VTI: 31.3 cm Reading Physician:09:31 PM
== END ==
LOC: ECHO 13:04
PROVIDERS: Family Provider Family Medicine; PCP Family Medicine; Referring Provider Internal Medicine Cardiovascular Disease; Visit Provider Internal Medicine Cardiovascular Disease
DX: I08.0 Rheumatic disorders of both mitral and aortic valves (principal)
CPT/HCPCS: 93306

== ENCOUNTER 2024-12-10 12:28 | Emergency (ER) | payer MEDICARE, OTHER, SELFPAY ==
[2024-07-25 05:09] VITALS: BMI 33.2
[2024-12-10 13:08] VITALS: BP 128/61; PULSE 83; RESP 18; TEMP 36.6; O2SAT 95; BMI 32.3
--- NOTE | 2024-12-10 13:15 | EKG_ITS ---
[address] [address] Test Date: 2024-12-10 Pat Name: Wilfredo Magallanes Department: Room: Gender: Male Host And Hostess: FAIZA : 1955 Requested By: Order Number: [id number] Reading MD: Lukas Asher MD Measurements Intervals [place] Rate: 76 P: 43 ID: [id number] QRS: 61 QRSD: 116 T: 74 QT: 440 QTc: 495 Interpretive Statements Normal sinus rhythm Possible Left atrial enlargement Left ventricular hypertrophy with QRS widening ( [place] product ) Nonspecific ST abnormality Prolonged QT NO SIGNIFICANT CHANGE FROM PRIOR TRACING Electronically Signed On 12-11-2024 8:44:54 PDT by Lukas Asher MD
--- NOTE | 2024-12-10 13:15 | DI.RAD.S_ITS ---
PROCEDURE: XR CHEST 1V INDICATIONS: Chest Pain TECHNIQUE: One view of the chest was acquired. COMPARISON: [facility], CR, XR CHEST 1V, 07/24/2024, 23:45. [facility], CR, XR CHEST 1V, 07/24/2024, 14:26. FINDINGS: Surgical changes and devices: Median sternotomy wires. Lungs and pleura: Lungs are clear. No pleural effusions or pneumothorax. Mediastinum: Mediastinal contours appear normal. Heart size is enlarged, stable. Bones and chest wall: No suspicious bony lesions. Overlying soft tissues appear unremarkable. IMPRESSION: No acute cardiopulmonary abnormality is seen. Dictated by: Adalberto Hurt M.D. on 12/10/2024 at 14:17 Approved by: Adalberto Hurt M.D. on 12/10/2024 at 14:17
[2024-12-10 13:44] LABS: Add Manual Diff / Slide Review NO; Basophils Absolute Auto 100 /uL (0-100); Basophils Percent Auto 0.8 % (0-2); Eosinophils Absolute Auto 0 /uL (0-450); Eosinophils Percent Auto 0.2 % (2-4); Hematocrit 47.8 % (41-53); Hemoglobin 15.4 g/dL (13.5-17.5); Lymphocytes Absolute Auto 2000 /uL (1100-4500); Lymphocytes Percent Auto 22.1 % (25-40); Mean Corpuscular HGB Conc 32.3 % (30-36); Mean Corpuscular Hemoglobin 27.2 PG (26-34); Mean Corpuscular Volume 84.3 fL (80-100); Monocytes Absolute Auto 900 /uL (0-900); Monocytes Percent Auto 9.6 % (3-14); Neutrophils Absolute Auto 6100 /uL (1500-7000); Neutrophils Percent Auto 67.3 % (50-75); Platelet Count 222 X10^3/uL (150-400); Red Blood Cell Count 5.67 X10^6/uL (4.5-5.9)
[2024-12-10 13:53] LABS: INR 2.1 (0.9-1.3)
[2024-12-10 13:56] LABS: Alanine Aminotransferase 16 IU/L (<50); Albumin 4.5 g/dL (3.5-5.0); Albumin Globulin Ratio 1.2 (1.0-2.8); Alkaline Phosphatase 84 U/L (38-126); Aspartate Aminotransferase 33 IU/L (17-59); BUN Creatinine Ratio 22.5 (6-22); Bilirubin Total 1.1 mg/dL (0.2-1.3); Blood Urea Nitrogen 16 mg/dL (9-20); Calcium 9.2 mg/dL (8.4-10.2); Carbon Dioxide 23 mmol/L (22-32); Chloride 103 mmol/L (98-107); Creatine Kinase 61 U/L (55-170); Estimated Glomerular Filt Rate > 60 mL/min (>60); Globulin 3.8 g/dL (1.7-4.1); Glucose 115 mg/dL (70-99); HEMOLYSIS 69 (0-50); Lipase 86 U/L (23-300); PTT Partial Thromboplastin Tim 42 SECONDS (25.1-36.5); Potassium 4.3 mmol/L (3.4-5.1); Sodium 137 mmol/L (137-145); Total Protein 8.3 g/dL (6.3-8.2)
[2024-12-10 14:08] LABS: NT-proBNP (BNP-Adult 18+) 1450 pg/mL (<125); Troponin I 0.031 ng/mL (0.01-0.034)
--- NOTE | 2024-12-10 14:36 | ED_ITS ---
HPI - Arrhythmia/Palpitations General Chief Complaint: Arrhythmia/Palpitations Stated Complaint: PCP REF, heart issues Time Seen by Provider: 12/10/24 13:32 Source: patient Mode of arrival: Ambulatory History of Present Illness HPI narrative: Patient saw his selenium plant operator, Dr. Ghosh this morning in the office. He was there for regular routine annual checkup. However he did mention to his selenium plant operator that he had palpitations at 8:00 a.m. this morning. It resolved by the time he got here. However while in the office he was in atrial flutter. Dr. Ghosh has prescribed him Xarelto. He has started this already. He was originally sent here for cardioversion but he is now back in normal sinus rhythm. He has no symptoms now. He does admit drinking alcohol yesterday in celebration of family event. This likely triggered the atrial flutter. Patient in no distress at this time. Related Data Home Medications ?Medication ?Instructions ?Recorded ?Confirmed albuterol sulfate 90 mcg/actuation 1 puff inhalation Q 4-6H 07/25/24 07/25/24 aerosol inhaler atorvastatin 80 mg tablet 80 mg PO DAILY 07/25/2406/28 empagliflozin 10 mg tablet 10 mg PO DAILY 07/25/24 (Jardiance) gabapentin 300 mg capsule 600 mg PO TID chronic pain 0 07/25/24 07/25/24 rivaroxaban 2.5 mg tablet (Xarelto) 2.5 mg DAILY 07/2507/25/24 tamsulosin 0.4 mg capsule 0.4 mg PO DAILY 07/25/24 Previous Rx's ?Medication ?Instructions ?Recorded furosemide 40 mg tablet 40 mg PO BID 30 days #60 tab s 07/25/24 nebulizers (Compact Compressor #1 ea 07/25/24 Nebulizer) Allergies Allergy/AdvReac Type Severity Reaction Status Date / Time chloramphenicol Allergy Unknown RASH Verified 12/10/24 13:09 (CHLORAMPHENICOL) ITCHING shellfish derived (SHELLFISH Allergy Unknown THROAT Verified 12/10/24 13:09 DERIVED) CLOSES UP Review of Systems Review of Systems Narrative: GENERAL: Negative chills, fatigue, malaise, fever, sweats. HEENT: Negative sinus pain, ear pain, sore throat RESPIRATORY: Negative dyspnea, cough CARDIOVASCULAR: Negative chest pain, positive palpitations GASTROINTESTINAL: Negative vomiting, nausea, abdominal pain : Negative dysuria, frequency, hematuria MUSCULOSKELETAL: Negative muscle or bony pain SKIN: Negative rash, skin lesions NEUROLOGIC: Negative weakness, numbness ROS Unobtainable: All systems reviewed & are unremarkable except as noted in HPI and below Patient History Medical History Gout HTN (hypertension) Surgical History History of elbow surgery Status post appendectomy Social History household members: spouse Smoking Status: Current every day smoker alcohol intake: current Smoking Status: Current every day smoker tobacco type: cigarettes alcohol intake frequency: holidays/special occasions only Exam Narrative Exam Narrative: GENERAL: in no distress, not toxic not dyspneic HEAD: Normocephalic. EYES: Pupils equal round ENT: Mucous membranes moist. NECK: Trachea midline. CARDIOVASCULAR: Regular rate and rhythm RESPIRATORY: Clear to auscultation. Breath sounds equal bilaterally. No wheezes, rales, or rhonchi. GASTROINTESTINAL: Abdomen soft, non-tender EXTREMITIES: No gross deformities. BACK: No flank tenderness. NEURO: AOx4. Clear speech SKIN: Warm and dry PSYCH: Not anxious, is cooperative Initial Vital Signs Initial Vital Signs: Vital Signs Temperature 97.9 F 12/10/24 13:08 Pulse Rate 83 12/10/24 13:08 Respiratory Rate 18 12/10/24 13:08 Blood Pressure 128/61 12/10/24 13:08 Pulse Oximetry 95 12/10/24 13:08 Oxygen Delivery Method Room Air 12/10/24 13:08 Course Orders Ordered: ED Orders 12/10/24 13:15 XR chest 1V Stat EKG-12 Lead Stat 12/10/24 13:33 Complete Blood Count AUTO DIFF Stat Comprehensive Metabolic Panel Stat Lipase Stat Magnesium Stat NT-proBNP (BNP-Adult 18+) Stat PTT Partial Thromboplastin Kael Stat Prothrombin Time INR Stat Troponin & CK Cardiac Panel Stat Vital Signs Vital signs: Vital Signs - 8 hr 12/10/24 13:08 Temperature 97.9 F Pulse Rate 83 Respiratory Rate 18 Blood Pressure 128/61 Pulse Oximetry 95 Oxygen Delivery Method Room Air MDM - Arrhythmia/Palpitations Lab Data 12/10/24 13:33 12/10/24 13:33 Labs: Lab Results 12/10/24 Range/Units 13:33 WBC 9.0 (4.5-11.0) X10^3/uL RBC 5.67 (4.5-5.9) X10^6/uL Hgb 15.4 (13.5-17.5) g/dL Hct 47.8 (41-53) % MCV 84.3 (80-100) fL MCH 27.2 (26-34) PG MCHC 32.3 (30-36) % RDW 16.0 H (11.6-14.8) % Plt Count 222 (150-400) X10^3/uL Neut % (Auto) 67.3 (50-75) % Lymph % (Auto) 22.1 L (25-40) % [place] % (Auto) 9.6 (3-14) % Eos % (Auto) 0.2 L (2-4) % Baso % (Auto) 0.8 (0-2) % Neut # (Auto) 6100 (5066-8386) /uL Lymph # (Auto) 2000 (3210-2710) /uL [place] # (Auto) 900 (0-900) /uL Eos # (Auto) 0 (0-450) /uL Baso # (Auto) 100 (0-100) /uL PT 23.0 H (9.4-12.5) SECONDS INR 2.1 H (0.9-1.3) APTT 42 H (25.1-36.5) SECONDS Sodium 137 (137-145) mmol/L Potassium 4.3 (3.4-5.1) mmol/L Chloride 103 (98-107) mmol/L Carbon Dioxide 23 (22-32) mmol/L BUN 16 (9-20) mg/dL Creatinine 0.71 (0.66-1.25) mg/dL Estimated GFR > 60 (>60) mL/min BUN/Creatinine Ratio 22.5 H (6-22) Glucose 115 H (70-99) mg/dL Calcium 9.2 (8.4-10.2) mg/dL Magnesium 2.0 (1.6-2.3) mg/dL Total Bilirubin 1.1 (0.2-1.3) mg/dL AST 33 (17-59) IU/L ALT 16 (<50) IU/L Alkaline Phosphatase 84 (38-126) U/L Total Creatine Kinase 61 (55-170) U/L Troponin I 0.031 (0.01-0.034) ng/mL NT-Pro-B Natriuret Pep 1450 H (<125) pg/mL Total Protein 8.3 H (6.3-8.2) g/dL Albumin 4.5 (3.5-5.0) g/dL Globulin 3.8 (1.7-4.1) g/dL Albumin/Globulin Ratio 1.2 (1.0-2.8) Lipase 86 (23-300) U/L Imaging Data Chest x-ray: Radiologist's Impresson: [address] [address] XRay Report Signed Patient: Wilfredo Magallanes MR#: [id number] : 1955 Acct:[id number] Age/Sex: 69 / M Date of Service: 12/10/24 Loc: ED Accession Number: [id number] Procedure: XR chest 1V Ordering Provider: Po Arreola MD PROCEDURE: XR CHEST 1V INDICATIONS: Chest Pain TECHNIQUE: One view of the chest was acquired. COMPARISON: [facility], CR, XR CHEST 1V, 07/24/2024, 23:45. [facility], CR, XR CHEST 1V, 07/24/2024, 14:26. FINDINGS: Surgical changes and devices: Median sternotomy wires. Lungs and pleura: Lungs are clear. No pleural effusions or pneumothorax. Mediastinum: Mediastinal contours appear normal. Heart size is enlarged, stable. Bones and chest wall: No suspicious bony lesions. Overlying soft tissues appear unremarkable. IMPRESSION: No acute cardiopulmonary abnormality is seen. Dictated by: Adalberto Hurt M.D. on 12/10/2024 at 14:17 Approved by: Adalberto Hurt M.D. on 12/10/2024 at 14:17 [place] Narrative Medical decision making narrative: Patient saw his selenium plant operator, Dr. Ghosh this morning in the office. He was there for regular routine annual checkup. However he did mention to his selenium plant operator that he had palpitations at 8:00 a.m. this morning. It resolved by the time he got here. However while in the office he was in atrial flutter. Dr. Ghosh has prescribed him Xarelto. He has started this already. He was originally sent here for cardioversion but he is now back in normal sinus rhythm. He has no symptoms now. He does admit drinking alcohol yesterday in celebration of family event. This likely triggered the atrial flutter. Patient in no distress at this time. After history and exam, CBC CMP EKG troponin chest x-ray [place] Medical records reviewed: No recent visit for this complaint, patient just had echocardiogram November 26, 2024 ejection fraction 45% Differential considered: Includes but not limited to atrial fibrillation atrial flutter Lab Test results independently reviewed as above. Pertinent findings: WBC 9.0 hemoglobin 15.4 INR 2.1 sodium 137 potassium 4.3 magnesium 2.0 calcium 9.2 troponin 0.031 BNP 1450 these were reviewed with Dr. Ghosh and of no concern at this time. Independently reviewed EKG normal sinus rhythm rate [address] elevation or depression Imaging studies independently reviewed: Chest x-ray no acute finding Consultations: 2:[address] Ghosh results, who would like patient discharged, he has already prescribed patient metoprolol and Xarelto. He will see patient in the office Re-evaluations: 2:40 p.m.. Patient desires discharge home return precautions reviewed. They do understand new diagnosis and his selenium plant operator has provided new prescriptions. They desire discharge home. Discussion: Appropriate for discharge home. Patient is instructed to be followed by his selenium plant operator. Patient has spontaneously converted to sinus rhythm. Return precautions reviewed. They desire discharge home. Diagnosis: New onset atrial flutter Discharge Plan Departure Patient Disposition: Home Clinical Impression: New onset atrial flutter Instructions: DI for Atrial Flutter Activity Restrictions/Additional Instructions: Your selenium plant operator has provided new medications for you. Please pick them up and start them today. Please see your selenium plant operator as scheduled. Return if worse if any questions or concerns. You did develop a new cardiac rhythm, atrial flutter. Please review discharge information about this. Return if worse if any questions or concerns. Prescriptions: No Action atorvastatin 80 mg tablet 80 mg PO DAILY tamsulosin 0.4 mg capsule 0.4 mg PO DAILY gabapentin 300 mg capsule 600 mg PO TID Rx Instructions: Recently increased to TID albuterol sulfate 90 mcg/actuation HFA aerosol inhaler 1 puff INHALATION Q4-6H Jardiance 10 mg tablet 10 mg PO DAILY Xarelto 2.5 mg tablet 2.5 mg DAILY Patient Comments: [NO ORIGINAL SIG] furosemide 40 mg tablet 40 mg PO BID 30 Days Qty: 60 0RF (DME) nebulizers [Compact Compressor Nebulizer] Misc See Rx Instructions .Route Qty: 1 0RF Rx Instructions: One nebulizer and compressor Referrals: Sherie Hackett MD [Primary Care Provider, Family Practice] Stand Alone Forms: Patient Portal/API
[2024-12-10 14:37] VITALS: BP 152/74; PULSE 80; RESP 16; O2SAT 98
== END 2024-12-10 14:40 | disposition home or self-care (01) ==
PROVIDERS: Emergency Provider Emergency Medicine; Family Provider Family Medicine; PCP Family Medicine
DX: I48.92 Unspecified atrial flutter (principal); R07.9 Chest pain, unspecified
CPT/HCPCS: 36415; 71045; 80053; 82550; 83690; 83735; 83880; 84484; 85025; 85610; 85730; 93005; 93010; 99284

== ENCOUNTER 2025-03-29 04:51 | Emergency (ER) | payer MEDICARE, OTHER, SELFPAY ==
[2024-07-25 05:09] VITALS: BMI 33.2
[2025-03-29] VITALS (12 sets, daily range): BP systolic 128–214; BP diastolic 63–81; PULSE 56–71; RESP 18–33; TEMP 37.3; O2SAT 93–98; BMI 33.7
--- NOTE | 2025-03-29 05:04 | DI.RAD.S_ITS ---
PROCEDURE: XR CHEST 1V INDICATIONS: Chest Pain TECHNIQUE: One view of the chest was acquired. COMPARISON: [facility], CR, XR CHEST 1V, 12/10/2024, 13:27. FINDINGS: Surgical changes and devices: Cerclage wires overlie the heart Lungs and pleura: Lungs are clear. No pleural effusions or pneumothorax. Mild interstitial prominence bilaterally. Mediastinum: Cardiomegaly. Bones and chest wall: No suspicious bony lesions. Overlying soft tissues appear unremarkable. IMPRESSION: No acute cardiopulmonary abnormality is seen. Dictated by: Po Eckert M.D. on 03/29/2025 at 8:07 Approved by: Po Eckert M.D. on 03/29/2025 at 8:08
--- NOTE | 2025-03-29 05:10 | EKG_ITS ---
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
--- NOTE | 2025-03-29 05:26 | ED.CHESTPAIN ---
HPI - Chest Pain General Chief Complaint: Chest Pain Stated Complaint: Chest pain, pain when coughing Time Seen by Provider: 03/29/25 05:26 Source: patient Mode of arrival: Ambulatory Limitations: no limitations History of Present Illness HPI narrative: Patient is a 69-year-old male who presents with anterior chest pain. Past medical history significant for hyperlipidemia, hypertension, prior history of triple bypass. Patient states that he was in his usual state of health when he developed anterior chest pain last night at 8:00 p.m. while playing video games. He has never had this pain before and describes it as an 8/10 nonradiating, tearing pain in his anterior chest (like someone is ripping the muscle off my ribs.) he has not been asleep since last night and presented to the ER due to persistent pain. He also has pleuritic pain. Denies any fevers, chills, nausea, vomiting. No congestion, rhinorrhea, cough, any upper respiratory infection symptoms. Related Data Home Medications ?Medication ?Instructions ?Recorded ?Confirmed albuterol sulfate 90 mcg/actuation 1 puff inhalation Q4-6H 07/25/24 03/29/25 aerosol inhaler atorvastatin 80 mg tablet 80 mg PO DAILY 07/25/24 03/29/25 empagliflozin 10 mg tablet 10 mg PO DAILY 07/25/24 03/29/25 (Jardiance) gabapentin 300 mg capsule 900 mg PO BID chronic pain 07/25/24 03/29/25 tamsulosin 0.4 mg capsule 0.4 mg PO DAILY 07/25/24 03/29/25 acetaminophen 500 mg capsule 1,000 mg PO BID PRN pain 03/29/25 03/29/25 albuterol sulfate 2.5 mg/3 mL 2.5 mg inhalation Q4-6H PRN 03/29/25 03/29/25 (0.083 %) solution for nebulization shortness of breath or wheezing allopurinol 100 mg tablet 100 mg PO DAILY 03/29/25 03/29/25 blood sugar diagnostic (FreeStyle 03/29/25 03/29/25 Lite Strips) metoprolol succinate 50 mg 50 mg PO BID 03/29/25 03/29/25 tablet,extended release 24 hr polyethylene glycol 3350 17 17 g PO DAILY 03/29/25 03/29/25 gram/dose oral powder rivaroxaban 20 mg tablet (Xarelto) 20 mg PO DAILY 03/29/25 03/29/25 sacubitril 49 mg-valsartan 51 mg 0.5 tab PO BID 03/29/25 03/29/25 tablet (Entresto) spironolactone 50 mg tablet 50 mg PO DAILY 03/29/25 03/29/25 Previous Rx's ?Medication ?Instructions ?Recorded furosemide 40 mg tablet 40 mg PO BID 30 days #60 tabs 07/25/24 nebulizers (Compact Compressor #1 ea 07/25/24 Nebulizer) Allergies Allergy/AdvReac Type Severity Reaction Status Date / Time chloramphenicol Allergy Unknown RASH Verified 03/29/25 04:58 (CHLORAMPHENICOL) ITCHING shellfish derived (SHELLFISH Allergy Unknown THROAT Verified 03/29/25 04:58 DERIVED) CLOSES UP Review of Systems Review of Systems Narrative: See HPI. Patient History Medical History Gout HTN (hypertension) Surgical History History of elbow surgery Status post appendectomy Social History household members: spouse alcohol intake: current Smoking Status: Current every day smoker tobacco type: cigarettes alcohol intake frequency: holidays/special occasions only Exam Initial Vital Signs Initial Vital Signs: Vital Signs Temperature 99.1 F 03/29/25 04:59 Pulse Rate 71 03/29/25 04:59 Respiratory Rate 18 03/29/25 04:59 Blood Pressure 159/66 H 03/29/25 04:59 Pulse Oximetry 98 03/29/25 04:59 Oxygen Delivery Method Room Air 03/29/25 04:59 Reviewed. Const Other: Well-developed, well-nourished, gentleman of stated age with no acute distress. Chest Other: No rashes and anterior chest wall. Resp Other: Clear to auscultation bilaterally. Cardio Other: Regular rate, no murmurs rubs or gallops. GI Other: Obese, soft, nondistended, nontender to palpation. No rebound or guarding. Psych Other: Normal appearance, speech, and thought process. Course Course Course Narrative: 0522: Patient evaluated. He is currently not having chest pain. Awaiting workup to include labs, imaging. Orders Ordered: ED Orders 03/29/25 05:04 XR chest 1V Stat Complete Blood Count AUTO DIFF Stat Comprehensive Metabolic Panel Stat Lipase Stat Magnesium Stat NT-proBNP (BNP-Adult 18+) Stat PTT Partial Thromboplastin Kael Stat Prothrombin Time INR Stat Troponin & CK Cardiac Panel Stat EKG-12 Lead Stat Vital Signs Vital signs: Vital Signs - 8 hr 03/29/25 04:59 03/29/25 05:12 03/29/25 05:17 Temperature 99.1 F Pulse Rate 71 67 Respiratory Rate 18 Blood Pressure 159/66 H 144/63 H Pulse Oximetry 98 96 Oxygen Delivery Method Room Air 03/29/25 05:17 Temperature Pulse Rate 64 Respiratory Rate 29 H Blood Pressure Pulse Oximetry 95 Oxygen Delivery Method Room Air Reviewed. Will allow for permissive hypertension while waiting for workup. MDM - Chest Pain Lab Data 03/29/25 05:25 03/29/25 05:25 Labs: Lab Results 03/29/25 Range/Units 05:25 WBC 11.3 H (4.5-11.0) X10^3/uL RBC 5.76 (4.5-5.9) X10^6/uL Hgb 16.0 (13.5-17.5) g/dL Hct 48.9 (41-53) % MCV 84.9 (80-100) fL MCH 27.8 (26-34) PG MCHC 32.7 (30-36) % RDW 18.3 H (11.6-14.8) % Plt Count 147 L (150-400) X10^3/uL Neut % (Auto) 73.3 (50-75) % Lymph % (Auto) 14.8 L (25-40) % [place] % (Auto) 8.3 (3-14) % Eos % (Auto) 0.6 L (2-4) % Baso % (Auto) 3.0 H (0-2) % Neut # (Auto) 8300 H (2395-3758) /uL Lymph # (Auto) 1700 (2328-4102) /uL [place] # (Auto) 900 (0-900) /uL Eos # (Auto) 100 (0-450) /uL Baso # (Auto) 300 H (0-100) /uL PT 21.6 H (9.4-12.5) SECONDS INR 1.9 H (0.9-1.3) APTT 38 H (25.1-36.5) SECONDS ECG Data Interpretation: 0510: EKG with HR, 70 [place] interval 180, QTC 475, no axis deviation, no ectopy, there is some T-wave abnormality in AVR AVF ST abnormalities in all precordial leads. Discharge Plan Departure Prescriptions: No Action atorvastatin 80 mg tablet 80 mg PO DAILY tamsulosin 0.4 mg capsule 0.4 mg PO DAILY gabapentin 300 mg capsule 900 mg PO BID Rx Instructions: Recently increased to TID albuterol sulfate 90 mcg/actuation HFA aerosol inhaler 1 puff INHALATION Q4-6H Jardiance 10 mg tablet 10 mg PO DAILY furosemide 40 mg tablet 40 mg PO BID 30 Days Qty: 60 0RF (DME) nebulizers [Compact Compressor Nebulizer] Misc See Rx Instructions .Route Qty: 1 0RF Rx Instructions: One nebulizer and compressor acetaminophen 500 mg capsule 1,000 mg PO BID PRN (Reason: pain) polyethylene glycol 3350 17 gram/dose powder 17 g PO DAILY Xarelto 20 mg tablet 20 mg PO DAILY metoprolol succinate 50 mg tablet extended release 24 hr 50 mg PO BID allopurinol 100 mg tablet 100 mg PO DAILY sacubitril-valsartan [Entresto] 49-51 mg tablet 0.5 tab PO BID spironolactone 50 mg tablet 50 mg PO DAILY albuterol sulfate 2.5 mg /3 mL (0.083 %) solution for nebulization 2.5 mg inhalation Q4-6H PRN (Reason: shortness of breath or wheezing) (DME) FreeStyle Lite Strips Strip MISCELLANEOUS Referrals: Sherie Hackett MD [Primary Care Provider, Family Practice]
[2025-03-29 05:36] LABS: Add Manual Diff / Slide Review NO; Hematocrit 48.9 % (41-53); Hemoglobin 16.0 g/dL (13.5-17.5); Lymphocytes Absolute Auto 1700 /uL (1100-4500); Mean Corpuscular HGB Conc 32.7 % (30-36); Mean Corpuscular Hemoglobin 27.8 PG (26-34); Mean Corpuscular Volume 84.9 fL (80-100); Platelet Count 147 X10^3/uL (150-400)
[2025-03-29 05:43] LABS: INR 1.9 (0.9-1.3); Prothrombin Time 21.6 SECONDS (9.4-12.5)
[2025-03-29 05:46] LABS: PTT Partial Thromboplastin Tim 38 SECONDS (25.1-36.5)
[2025-03-29 05:47] LABS: Alanine Aminotransferase 15 IU/L (<50); Albumin 4.4 g/dL (3.5-5.0); Albumin Globulin Ratio 1.3 (1.0-2.8); Alkaline Phosphatase 82 U/L (38-126); Blood Urea Nitrogen 20 mg/dL (9-20); Calcium 9.1 mg/dL (8.4-10.2); Carbon Dioxide 25 mmol/L (22-32); Chloride 103 mmol/L (98-107); Creatine Kinase 47 U/L (55-170); Estimated Glomerular Filt Rate > 60 mL/min (>60); Globulin 3.5 g/dL (1.7-4.1); Glucose 154 mg/dL (70-99); HEMOLYSIS 20 (0-50); Lipase 62 U/L (23-300); Magnesium 1.8 mg/dL (1.6-2.3); Potassium 4.0 mmol/L (3.4-5.1); Sodium 138 mmol/L (137-145); Total Protein 7.9 g/dL (6.3-8.2)
[2025-03-29 05:58] LABS: NT-proBNP (BNP-Adult 18+) 491 pg/mL (<125); Troponin I 0.015 ng/mL (0.01-0.034)
--- NOTE | 2025-03-29 06:28 | ED.CHESTPAIN ---
HPI - Chest Pain General Chief Complaint: Chest Pain Stated Complaint: Chest pain, pain when coughing Time Seen by Provider: 03/29/25 05:26 Source: patient Mode of arrival: Ambulatory Limitations: no limitations History of Present Illness HPI narrative: Patient is a 69-year-old man brought in by for chest pain. Past medical history significant for hypertension, diabetes, CABG, hyperlipidemia. Patient states Related Data Home Medications ?Medication ?Instructions ?Recorded ?Confirmed albuterol sulfate 90 mcg/actuation 1 puff inhalation Q4-6H 07/25/24 03/29/25 aerosol inhaler atorvastatin 80 mg tablet 80 mg PO DAILY 07/25/24 03/29/25 empagliflozin 10 mg tablet 10 mg PO DAILY 07/25/24 03/29/25 (Jardiance) gabapentin 300 mg capsule 900 mg PO BID chronic pain 07/25/24 03/29/25 tamsulosin 0.4 mg capsule 0.4 mg PO DAILY 07/25/24 03/29/25 acetaminophen 500 mg capsule 1,000 mg PO BID PRN pain 03/29/25 03/29/25 albuterol sulfate 2.5 mg/3 mL 2.5 mg inhalation Q4-6H PRN 03/29/25 03/29/25 (0.083 %) solution for nebulization shortness of breath or wheezing allopurinol 100 mg tablet 100 mg PO DAILY 03/29/25 03/29/25 blood sugar diagnostic (FreeStyle 03/29/25 03/29/25 Lite Strips) metoprolol succinate 50 mg 50 mg PO BID 03/29/25 03/29/25 tablet,extended release 24 hr polyethylene glycol 3350 17 17 g PO DAILY 03/29/25 03/29/25 gram/dose oral powder rivaroxaban 20 mg tablet (Xarelto) 20 mg PO DAILY 03/29/25 03/29/25 sacubitril 49 mg-valsartan 51 mg 0.5 tab PO BID 03/29/25 03/29/25 tablet (Entresto) spironolactone 50 mg tablet 50 mg PO DAILY 03/29/25 03/29/25 Previous Rx's ?Medication ?Instructions ?Recorded furosemide 40 mg tablet 40 mg PO BID 30 days #60 tabs 07/25/24 nebulizers (Compact Compressor #1 ea 07/25/24 Nebulizer) diclofenac sodium 1 % topical gel 2 g topical QID #50 grams 03/29/25 (Voltaren Arthritis Pain) diclofenac sodium 1 % topical gel 2 g topical QID #50 grams 03/29/25 (Voltaren Arthritis Pain) Allergies Allergy/AdvReac Type Severity Reaction Status Date / Time chloramphenicol Allergy Unknown RASH Verified 03/29/25 04:58 (CHLORAMPHENICOL) ITCHING shellfish derived (SHELLFISH Allergy Unknown THROAT Verified 03/29/25 04:58 DERIVED) CLOSES UP Patient History Medical History Gout HTN (hypertension) Surgical History History of elbow surgery Status post appendectomy Social History household members: spouse Smoking Status: Current every day smoker alcohol intake: current Smoking Status: Current every day smoker tobacco type: cigarettes alcohol intake frequency: holidays/special occasions only Exam Initial Vital Signs Initial Vital Signs: Vital Signs Temperature 99.1 F 03/29/25 04:59 Pulse Rate 71 03/29/25 04:59 Respiratory Rate 18 03/29/25 04:59 Blood Pressure 159/66 H 03/29/25 04:59 Pulse Oximetry 98 03/29/25 04:59 Oxygen Delivery Method Room Air 03/29/25 04:59 Vital signs reviewed. Const Other: Well-developed well-nourished man of stated age but in no acute distress. Chest Other: No rash on anterior chest wall. Pain was very reproducible when palpating around the edges of the sternal border. Resp Other: Clear to auscultation bilaterally without any crackles. Cardio Other: Regular rate without any murmurs rubs or gallops. 2+ radial pulses bilaterally. GI Other: Obese, mildly distended, nontender to palpation. Extrem Other: No edema in bilateral lower extremities. Psych Other: Normal mood, speech, thought process and content. Scores HEART Score Heart Score history: Slightly Suspicious Heart Score EKG: Non-Specific repolarization disturbance Heart Score Age: > or = 65 years old Heart Score risk factors: 1-2 risk factors Heart Score troponin: < or = to normal limit Heart Score Total: 4 Course Course Course Narrative: Heart score: Moderate Score 4 Risk of MACE of 12-16.6%. Orders Ordered: ED Orders 03/29/25 05:04 XR chest 1V Stat EKG-12 Lead Stat 03/29/25 05:25 Complete Blood Count AUTO DIFF Stat Comprehensive Metabolic Panel Stat Lipase Stat Magnesium Stat NT-proBNP (BNP-Adult 18+) Stat PTT Partial Thromboplastin Kael Stat Prothrombin Time INR Stat Troponin & CK Cardiac Panel Stat Discontinued Medications Ketorolac Tromethamine (Ketorolac 30 Mg/Ml Vial) 30 mg IV NOW ONE Stop: 03/29/25 07:03 Last Admin: 03/29/25 07:29 Dose: 30 mg Vital Signs Vital signs: Vital Signs - 8 hr 03/29/25 04:59 03/29/25 05:12 03/29/25 05:17 Temperature 99.1 F Pulse Rate 71 67 Respiratory Rate 18 Blood Pressure 159/66 H 144/63 H Pulse Oximetry 98 96 Oxygen Delivery Method Room Air 03/29/25 05:17 03/29/25 05:30 03/29/25 05:30 Temperature Pulse Rate 64 63 Respiratory Rate 29 H 31 H Blood Pressure 128/64 Pulse Oximetry 95 95 Oxygen Delivery Method Room Air 03/29/25 06:00 03/29/25 06:00 03/29/25 06:30 Temperature Pulse Rate 65 Respiratory Rate 24 Blood Pressure 152/68 H 142/65 H Pulse Oximetry 95 Oxygen Delivery Method Room Air 03/29/25 06:30 03/29/25 07:00 03/29/25 07:00 Temperature Pulse Rate 65 65 Respiratory Rate 27 H 26 H Blood Pressure 143/64 H Pulse Oximetry 96 94 Oxygen Delivery Method Room Air 03/29/25 07:30 03/29/25 07:31 03/29/25 07:31 Temperature Pulse Rate 63 61 Respiratory Rate 33 H 28 H Blood Pressure 214/81 H Pulse Oximetry 94 93 Oxygen Delivery Method 03/29/25 07:37 Temperature Pulse Rate 56 L Respiratory Rate 28 H Blood Pressure 134/63 Pulse Oximetry 94 Oxygen Delivery Method Room Air MDM - Chest Pain Lab Data Lab results narrative: CBC with thrombocytopenia (platelet 147), chemistries were insignificant. Troponin undetectable. 03/29/25 05:25 03/29/25 05:25 Labs: Lab Results 03/29/25 Range/Units 05:25 WBC 11.3 H (4.5-11.0) X10^3/uL RBC 5.76 (4.5-5.9) X10^6/uL Hgb 16.0 (13.5-17.5) g/dL Hct 48.9 (41-53) % MCV 84.9 (80-100) fL MCH 27.8 (26-34) PG MCHC 32.7 (30-36) % RDW 18.3 H (11.6-14.8) % Plt Count 147 L (150-400) X10^3/uL Neut % (Auto) 73.3 (50-75) % Lymph % (Auto) 14.8 L (25-40) % [place] % (Auto) 8.3 (3-14) % Eos % (Auto) 0.6 L (2-4) % Baso % (Auto) 3.0 H (0-2) % Neut # (Auto) 8300 H (0376-1119) /uL Lymph # (Auto) 1700 (2052-8318) /uL [place] # (Auto) 900 (0-900) /uL Eos # (Auto) 100 (0-450) /uL Baso # (Auto) 300 H (0-100) /uL PT 21.6 H (9.4-12.5) SECONDS INR 1.9 H (0.9-1.3) APTT 38 H (25.1-36.5) SECONDS Sodium 138 (137-145) mmol/L Potassium 4.0 (3.4-5.1) mmol/L Chloride 103 (98-107) mmol/L Carbon Dioxide 25 (22-32) mmol/L BUN 20 (9-20) mg/dL Creatinine 0.91 (0.66-1.25) mg/dL Estimated GFR > 60 (>60) mL/min BUN/Creatinine Ratio 22.0 (6-22) Glucose 154 H (70-99) mg/dL Calcium 9.1 (8.4-10.2) mg/dL Magnesium 1.8 (1.6-2.3) mg/dL Total Bilirubin 0.6 (0.2-1.3) mg/dL AST 19 (17-59) IU/L ALT 15 (<50) IU/L Alkaline Phosphatase 82 (38-126) U/L Total Creatine Kinase 47 L (55-170) U/L Troponin I 0.015 (0.01-0.034) ng/mL NT-Pro-B Natriuret Pep 491 H (<125) pg/mL Total Protein 7.9 (6.3-8.2) g/dL Albumin 4.4 (3.5-5.0) g/dL Globulin 3.5 (1.7-4.1) g/dL Albumin/Globulin Ratio 1.3 (1.0-2.8) Lipase 62 (23-300) U/L Imaging Data Chest x-ray: My Impression: No pneumothorax, pleural effusion. Heart size is normal. No consolidation. Lung markings are visible to the periphery of the lungs. Median sternotomy wires visible. Radiologist's Impression: No acute cardiopulmonary abnormality. ECG Data Interpretation: 0510: EKG with normal sinus rhythm, HR 70, GA 180, QTC 475, no axis deviation, there is nonspecific ST elevation and depression in all precordial leads, abnormal T-waves in AVR,. MDM Narrative Medical decision making narrative: Patient is a 69-year-old man with a history of hypertension and CABG who presents with pleuritic chest pain that began the night prior. Differential diagnosis include ACS, costochondritis, pneumonia, esophageal spasm, muscle sprain, other. On presentation to the ER, patient was hemodynamically normal. ACS workup to include EKG, troponin, chest x-ray were not consistent with STEMI. Patient did have ST and T-wave abnormalities, but undetectable troponins. BNP elevated 491 (1450, prior). Patient's heart score was 4 placing him at moderate risk for major adverse cardiac event. I discussed admitting to hospital under observation given his history of CABG and hypertension placing him at increased risk however patient reported that this was a different pain than his prior [place], and stated, I know that this is musculoskeletal. He is reliable and I discussed signs and symptoms that are concerning for myocardial ischemia and would warrant or emergent re-evaluation by a physician in the ER. Patient stated his understanding and informed me that he just wanted pain medication to assist with his pleuritic pain. Patient requesting to be discharged they go home and take his med gabapentin. Discharge Plan Departure Patient Disposition: Home Clinical Impression: Pleuritic chest pain, Thrombocytopenia Instructions: DI for Atypical Chest Pain Activity Restrictions/Additional Instructions: Activity as tolerated. Prescriptions: New diclofenac sodium [Voltaren Arthritis Pain] 1 % gel 2 g topical QID Qty: 50 0RF Rx Instructions: Apply to chest wall every 6 hours as needed for pain. diclofenac sodium [Voltaren Arthritis Pain] 1 % gel 2 g topical QID Qty: 50 0RF Rx Instructions: Apply to anterior chest as needed for pain. No Action atorvastatin 80 mg tablet 80 mg PO DAILY tamsulosin 0.4 mg capsule 0.4 mg PO DAILY gabapentin 300 mg capsule 900 mg PO BID Rx Instructions: Recently increased to TID albuterol sulfate 90 mcg/actuation HFA aerosol inhaler 1 puff INHALATION Q4-6H Jardiance 10 mg tablet 10 mg PO DAILY furosemide 40 mg tablet 40 mg PO BID 30 Days Qty: 60 0RF (DME) nebulizers [Compact Compressor Nebulizer] Misc See Rx Instructions .Route Qty: 1 0RF Rx Instructions: One nebulizer and compressor acetaminophen 500 mg capsule 1,000 mg PO BID PRN (Reason: pain) polyethylene glycol 3350 17 gram/dose powder 17 g PO DAILY Xarelto 20 mg tablet 20 mg PO DAILY metoprolol succinate 50 mg tablet extended release 24 hr 50 mg PO BID allopurinol 100 mg tablet 100 mg PO DAILY sacubitril-valsartan [Entresto] 49-51 mg tablet 0.5 tab PO BID spironolactone 50 mg tablet 50 mg PO DAILY albuterol sulfate 2.5 mg /3 mL (0.083 %) solution for nebulization 2.5 mg inhalation Q4-6H PRN (Reason: shortness of breath or wheezing) (DME) FreeStyle Lite Strips Strip MISCELLANEOUS Referrals: Sherie Hackett MD [Primary Care Provider, Family Practice] Stand Alone Forms: Patient Portal/API
[2025-03-29] MEDS: KETOROLAC 30 MG/ML VIAL IV (07:29)
== END 2025-03-29 08:20 | disposition home or self-care (01) ==
PROVIDERS: Emergency Provider Student in an Organized Health Care Education/Training Program; Family Provider Family Medicine; PCP Family Medicine
DX: R07.89 Other chest pain (principal); I10 Essential (primary) hypertension
CPT/HCPCS: 36415; 71045; 80053; 82550; 83690; 83735; 83880; 84484; 85025; 85610; 85730; 93005; 96374; 99284; J1885